=== PATIENT | male | born 1950 | race Caucasian/White ===

== ENCOUNTER 2022-03-24 09:48 | Outpatient (REF) | payer BC, SELFPAY ==
--- NOTE | ~2022-03-24 | US_ITS ---
EXAMINATION: US COMPLETE ABDOMEN WITH LIVER ELASTOGRAPHY CLINICAL INFORMATION: Fatty liver, elevated LFTs. COMPARISON: CT abdomen 06/16/2011. TECHNIQUE: Real-time imaging of the abdominal viscera. Noninvasive ultrasound liver fibrosis assessment is performed using Shad ElastPQ point quantification shear wave elastography (2D-SWE) with a C5-2 MHz transducer. Multiple elastography samples are obtained. FINDINGS: PANCREAS: Normal. The visualized pancreatic head and body are normal in appearance. The remainder of the pancreas is obscured from visualization by the overlying bowel gas. ABDOMINAL AORTA: The proximal, middle, and distal aortic segments are normal in caliber. INFERIOR VENA CAVA: Visualized portions are normal. LIVER: The liver demonstrates normal size, contour and diffuse increased echogenicity. There is a small anechoic cyst in left hepatic lobe measuring 1.4 x 0.9 x 1.1 cm. The right hepatic lobe measures 22.1 cm in length. The left lobe measures 12.9 cm in length. Portal flow is hepatopedal. Shear wave liver elastography median stiffness is 1.28 m/s (reference: normal median stiffness is 1.3 m/s or less). IQR/median stiffness to assess sampling precision is 0.11 (reference: good quality data set is IQR/median stiffness of 0.15 or less). GALLBLADDER: Normal. The gallbladder is physiologically distended without evidence of stones, sludge, polyps, wall thickening or pericholecystic fluid. COMMON BILE DUCT: Normal in caliber measuring 0.44 cm in diameter. RIGHT KIDNEY: There are 2 anechoic cysts. A midpole cyst measures 1.7 x 1.4 x 1.7 cm and a lower pole cyst measures 0.7 x 0.6 x 0.5 cm. No hydronephrosis. No renal calculi or focal parenchymal lesions. The kidney measures 12.9 cm in maximum dimension. LEFT KIDNEY: There are 2 anechoic cysts measuring 3.9 x 3.9 x 3.2 cm in upper pole and 3.0 x 2.0 x 1.1 cm in lower pole. No hydronephrosis. No renal calculi or focal parenchymal lesions. The kidney measures 12.0 cm in maximum dimension. SPLEEN: Normal. The spleen measures 9.9 cm in maximum dimension. FREE FLUID: None. US/US abdomen comp w elastography IMPRESSION: 1. Bilateral renal cysts. No echogenic calculi or hydronephrosis. Right hepatic cyst with hepatic steatosis. 2. Liver elastography: Median liver stiffness measures 1.28 m/s suggestive of high probability normal. REFERENCE: Society of Radiologists in Ultrasound Liver Stiffness Thresholds (2020): LIVER STIFFNESS THRESHOLDS: *Liver Stiffness equal or less than 1.3 m/s: High probability of being normal. *Liver Stiffness less than 1.7 m/s: In the absence of other known clinical signs, rules out compensated advanced chronic liver disease. *Liver Stiffness 1.7-2.1 m/s: Suggestive of compensated advanced chronic liver disease but need further test for confirmation. *Liver Stiffness over 2.1 m/s: Rules in compensated advanced chronic liver disease. *Liver Stiffness over 2.4 m/s: Suggestive of clinically significant portal hypertension. QUALITY OF DATA SET: *IQR/Median value equal or less than 0.15 implies a quality data set. *IQR/Median value over 0.15 implies a poor quality data set. SIGNIFICANT CHANGE FROM PRIOR EXAM: Significant change if liver stiffness measurement is 10% or greater from prior exam. OTHER CONSIDERATIONS: The stage of liver fibrosis may be overestimated in the setting of acute hepatitis, liver inflammation, elevated liver function tests, hepatic vascular congestion, obstructive cholestasis, non-fasting state, and infiltrative diseases such as amyloidosis and lymphoma. In some patients with NAFLD, the liver stiffness thresholds for compensated advanced chronic liver disease may be lower. In causes other than viral hepatitis and NAFLD, liver stiffness thresholds are not well established.
== END 2022-03-24 09:49 | disposition home or self-care (01) ==
LOC: HO.US 09:48
PROVIDERS: Visit Provider Internal Medicine
DX: K76.0 Fatty (change of) liver, not elsewhere classified (principal); R74.8 Abnormal levels of other serum enzymes
CPT/HCPCS: 76705; 76981

== ENCOUNTER 2022-03-27 07:57 | Day surgery (SDC) | payer BC, SELFPAY ==
[2022-03-20 11:21] VITALS: BMI 32.3
--- NOTE | 2022-03-26 08:45 | HO.ANESPROP2 ---
Documented by User: Mehreen Villasenor NP 03/26/22 08:46 HPI - Anesthesia Eval Consult details Narrative: 71yo M for Colonoscopy [facility] Past Medical History Medical History Diabetes Elevated cholesterol Fatty liver GERD (gastroesophageal reflux disease) HTN (hypertension) Sleep apnea with use of continuous positive airway pressure (CPAP) Small bowel obstruction Surgical History Surgical History H/O colonoscopy History of esophagogastroduodenoscopy (EGD) Hx of nasal septoplasty Hx of repair of right rotator cuff Hx of right inguinal hernia repair Hx of umbilical hernia repair Social History Social History Household Members: Spouse Patient Tobacco Use Status: Never used Tobacco Use of substances other than those prescribed or required for medical reasons: No Are you DNR?: No Advance Directives: No Advance Directives Information Provided: Yes Recently lost weight without trying: No Nutrition Risks: No Nutritional Risk Meds Allergies Allergy/AdvReac Type Severity Reaction Status Date / Time No Known Allergies Allergy Verified 03/27/22 08:11 Home Medications Medication Instructions Recorded Confirmed Last Taken Type atorvastatin 40 mg tablet 1 tab PO DAILY 03/20/22 03/20/22 Unknown History dapagliflozin 10 mg tablet 1 tab PO DAILY 03/20/22 03/20/22 Unknown History ([facility]) finasteride 5 mg tablet 1 tab PO DAILY 03/20/22 03/20/22 Unknown History metoprolol succinate 100 mg 1 tab PO DAILY 03/20/22 03/20/22 03/27/22 History tablet,extended release 24 hr tamsulosin 0.4 mg capsule 1 cap PO DAILY 03/20/22 03/20/22 Unknown History Exam Exam Date and Time: March 26, 2022 0845 Height,Weight and Vital Signs: Height 5 ft 10 in Weight 102.058 kg Assessment and Plan Assessment Anesthesia Assessment: Chart Reviewed Documented by User: Baylee Del Rio MD 03/27/22 09:24 [facility] Past Medical History Medical History Diabetes Elevated cholesterol Fatty liver GERD (gastroesophageal reflux disease) HTN (hypertension) Sleep apnea with use of continuous positive airway pressure (CPAP) Small bowel obstruction Family History Family history of problems with anesthesia: No Surgical History Surgical History H/O colonoscopy History of esophagogastroduodenoscopy (EGD) Hx of nasal septoplasty Hx of repair of right rotator cuff Hx of right inguinal hernia repair Hx of umbilical hernia repair History of Problems with Anesthesia: No Social History Social History Household Members: Spouse Patient Tobacco Use Status: Never used Tobacco Use of substances other than those prescribed or required for medical reasons: No Are you DNR?: No Advance Directives: No Advance Directives Information Provided: Yes Recently lost weight without trying: No Nutrition Risks: No Nutritional Risk Meds Allergies Allergy/AdvReac Type Severity Reaction Status Date / Time No Known Allergies Allergy Verified 03/27/22 08:11 Home Medications Medication Instructions Recorded Confirmed Last Taken Type atorvastatin 40 mg tablet 1 tab PO DAILY 03/20/22 03/20/22 Unknown History dapagliflozin 10 mg tablet 1 tab PO DAILY 03/20/22 03/20/22 Unknown History ([facility]) finasteride 5 mg tablet 1 tab PO DAILY 03/20/22 03/20/22 Unknown History metoprolol succinate 100 mg 1 tab PO DAILY 03/20/22 03/20/22 03/27/22 History tablet,extended release 24 hr tamsulosin 0.4 mg capsule 1 cap PO DAILY 03/20/22 03/20/22 Unknown History Exam Height,Weight and Vital Signs: Height 5 ft 10 in Weight 102.058 kg Vital Signs Temp Pulse Resp BP Pulse Ox 03/27/22 08:23 97.9 F 52 16 155/93 H 96 Pertinent Lab Results Pertinent Lab Results: Lab Results 03/27/22 Range/Units 08:32 POC Glucose 120 H (60-115) mg/dL Airway Mallampati Class: III (Small mouth opening) TM Dist: >3cm Neck ROM: Full Loose/Missing/Broken Teeth: No Heart: RRR Lungs: CTAB Assessment and Plan Assessment Anesthesia Assessment: Anesthesia Plan Discussed Final Anesthetic Review Family History of Problems with Anesthesia: No History of Problems with Anesthesia: No NPO: Yes ASA Class: III Final Preanesthetic Review: No Changes in Pt Med Stat, Meds/Allgs Chart Reviewed, Consent Obtained/Reviewed and Anes Risks/Benef Reviewed Patient Risk: Intermediate Procedure Risk: Low Assessment/Block/Sedation in SS: Assess/Block/Sedation-SS Anesthetic Plan Anesthetic Plan: MAC: Disposition: Standard PACU
[2022-03-27 08:07] VITALS: BMI 32.3
[2022-03-27 08:23] VITALS: BP 155/93; PULSE 52; RESP 16; TEMP 36.6; O2SAT 96
[2022-03-27] MEDS: Lactated Ringers 1,000 ML 100 ML IVCONT (08:36)
[2022-03-27 08:41] LABS: Glucose, Whole Blood 120 mg/dL (60-115)
[2022-03-27 10:12] VITALS: BP 108/59; PULSE 53; RESP 16; TEMP 36.7; O2SAT 95
--- NOTE | 2022-03-27 10:13 | PM.OP ---
Brief Operative Note Date of Service: 03/27/22 Pre-op diagnosis: Screening Post-op diagnosis: other (Polyps) Procedure: Colonoscopy to the cecum and TI with bx/removal of polyps Surgeon: Ghassan Navarro Anesthesia: MAC Was an Correctional Counselor used for this Procedure?: No Estimated blood loss (mL): 2.0 Pathology: other (A. Transverse colon polyps) Condition: stable Disposition: PACU
[2022-03-27 10:27] VITALS: BP 135/78; PULSE 58; RESP 16; O2SAT 98
[2022-03-27 10:42] VITALS: BP 144/81; PULSE 53; RESP 16; O2SAT 98
--- NOTE | 2022-03-27 16:42 | OP_ITS ---
SURGEON: Ghassan Navarro MD INDICATIONS: The patient presents for evaluation of colorectal cancer screening. Full consent was obtained from him for this, including risks of bleeding and perforation. PREOPERATIVE DIAGNOSIS: Colorectal cancer screening. POSTOPERATIVE DIAGNOSIS: PROCEDURE PERFORMED: Colonoscopy to the cecum and terminal ileum with biopsy and removal of polyps. ESTIMATED BLOOD LOSS: COMPLICATIONS: ANESTHESIA: Monitored anesthesia care. ASSISTANTS: SPECIMENS: POSTOPERATIVE DIAGNOSES: Colorectal cancer screening, small colon polyps, diverticulosis and internal hemorrhoids. DESCRIPTION OF PROCEDURE: The patient was placed in the left lateral decubitus position. The digital rectal exam revealed no abnormalities. The Olympus video pediatric colonoscope was entered into the rectum and advanced easily to the cecum. Once in the cecum, I did identify normal-appearing cecal pouch with appendiceal orifice and a normal-appearing ileocecal valve. The terminal ileum was cannulated and appeared normal. The scope was withdrawn back into the colon. The entire cecum and ileocecal valve appeared normal. The scope was slowly withdrawn assessing all mucosal surfaces carefully. Preparation was excellent. In the transverse colon were 3 flat less than 5 mm polyps, which were all biopsied and completely removed with cold biopsy forceps. I did not visualize any other polyps, colitis, or angiodysplasia. There was a mild amount of sigmoid diverticulosis. In the rectum, scope was retroflexed visualizing internal hemorrhoids, but no other pathology. The rectal mucosa appeared normal. The scope was straightened and withdrawn from the patient. He tolerated the procedure well and was returned to the recovery area in stable condition. IMPRESSION: 1. Small colon polyps, status post biopsy removal. 2. Diverticulosis. 3. Internal hemorrhoids. PLAN: The results of the pathology will be checked. If these are tubular adenoma, I would recommend a followup colonoscopy in 5 years. If they are only hyperplastic, I would recommend a repeat colonoscopy in 10 years, although that point it would be just about 80 years old and we would need to take his clinical condition into account. He has been advised to see me again in several months for a followup visit in regard to the underlying history of fatty liver. He did have some recent laboratories and ultrasound, but presently is not on any specific treatment for that. MD PEARL Marie/JOE / [id number] [facility] HOSPITALPoornima
== END 2022-03-27 11:00 | disposition home or self-care (01) ==
PROVIDERS: Visit Provider Internal Medicine
PROC: 0DJD8ZZ Inspection of Lower Intestinal Tract, Via Natural or Artificial Opening Endoscopic (ICD-10-PCS; CPT 45378; principal; 2022-03-27 09:10)
DX: Z12.11 Encounter for screening for malignant neoplasm of colon (principal); Z83.71 Family history of colonic polyps; D12.3 Benign neoplasm of transverse colon; K57.30 Diverticulosis of large intestine without perforation or abscess without bleeding; K64.8 Other hemorrhoids; K76.0 Fatty (change of) liver, not elsewhere classified; R74.8 Abnormal levels of other serum enzymes; K21.9 Gastro-esophageal reflux disease without esophagitis; I10 Essential (primary) hypertension; E78.5 Hyperlipidemia, unspecified; E11.9 Type 2 diabetes mellitus without complications; Z79.84 Long term (current) use of oral hypoglycemic drugs; Z79.82 Long term (current) use of aspirin; Z79.899 Other long term (current) drug therapy
CPT/HCPCS: 45380; 82947; 88305

== ENCOUNTER 2023-04-15 13:27 | Outpatient (REF) | payer BC, SELFPAY ==
[2023-04-15 13:53] LABS: MANUAL DIFF FLAG NO
[2023-04-15 14:52] LABS: Basophils Percent Auto 0.5 % (0-2); Eosinophils Absolute Auto 0.1 X10*3/uL (0.0-0.4); Eosinophils Percent Auto 2.1 % (0-4); Hemoglobin 14.8 g/dl (14.0-18.0); Imm Gran Abs Auto 0.01 X10*3/uL (0.00-0.03); Imm Gran Pct Auto 0.2 % (0.0-0.4); Lymphocytes Absolute Auto 1.5 X10*3/uL (1.2-4.9); Lymphocytes Percent Auto 26.6 % (20-40); Mean Corpuscular HGB Conc 33.6 g/dl (31.0-36.0); Mean Corpuscular Hemoglobin 32.4 pg (27.0-33.0); Mean Corpuscular Volume 96.3 fL (80.0-98.0); Mean Platelet Volume 10.8 fL (9.4-12.4); Monocytes Absolute Auto 0.5 X10*3/uL (0.1-1.2); Monocytes Percent Auto 9.2 % (2-11); Neutrophils Absolute Auto 3.6 x10*3/uL (2.0-8.3); Neutrophils Percent Auto 61.4 % (45-73); Platelet Count 197 X10*3/uL (160-400); Red Blood Count 4.57 X10*6/uL (4.60-5.80); Red Cell Distribution Width 12.6 % (11.0-16.0); White Blood Count 5.8 X10*3/uL (4.8-10.8)
[2023-04-15 14:55] LABS: Prothrombin Time 10.9 SEC (10.0-13.1)
[2023-04-15 16:27] LABS: Alanine Aminotransferase 51 U/L (0-40); Albumin Level 4.2 g/dL (3.5-5.0); Alkaline Phosphatase 44 U/L (39-117); Aspartate Amino Transferase 32 U/L (5-37); Bilirubin Direct 0.4 mg/dL (0.0-0.5); Bilirubin Total 1.4 mg/dL (0.0-1.0); Total Protein 7.1 g/dL (6.5-8.0)
[2023-04-22 14:38] LABS: FIB-ALT 46 U/L (9-46); FIB-Alpha-2-Macroglobulin 283 mg/dL (106-279); FIB-Apolipoprotein A1 184 mg/dL (94-176); FIB-GGT 39 U/L (3-70); FIB-Haptoglobin 81 mg/dL (43-212); Liver Fibrosis Score 0.61; Liver Fibrosis Stage F3; Nec Inflam Act Grade A1-A2; Nec Inflam Act Score 0.36
== END 2023-04-15 13:28 | disposition home or self-care (01) ==
LOC: HO.LAB 13:27
PROVIDERS: PCP Internal Medicine; Visit Provider Internal Medicine
DX: K76.0 Fatty (change of) liver, not elsewhere classified (principal); K74.00 Hepatic fibrosis, unspecified
CPT/HCPCS: 36415; 80076; 81596; 85025; 85610

== ENCOUNTER 2023-04-19 12:52 | Day surgery (SDC) | payer BC, SELFPAY ==
--- NOTE | 2023-04-16 12:43 | HO.ANESPROP2 ---
Documented by User: Mehreen Villasenor NP 04/16/23 12:44 HPI - Anesthesia Eval Consult details Narrative: 72yo M for Upper Endoscopy with Balloon Dilitation [facility] Past Medical History Medical History Diabetes Elevated cholesterol Fatty liver GERD (gastroesophageal reflux disease) HTN (hypertension) Sleep apnea with use of continuous positive airway pressure (CPAP) Small bowel obstruction Family History Family history of problems with anesthesia: No Surgical History Surgical History H/O colonoscopy History of esophagogastroduodenoscopy (EGD) Hx of nasal septoplasty Hx of repair of right rotator cuff Hx of right inguinal hernia repair Hx of umbilical hernia repair History of Problems with Anesthesia: No Social History Social History Household Members: Spouse Patient Tobacco Use Status: Never used Tobacco Use of substances other than those prescribed or required for medical reasons: No Are you DNR?: No Advance Directives: No Advance Directives Information Provided: Yes Meds Allergies Allergy/AdvReac Type Severity Reaction Status Date / Time No Known Allergies Allergy Verified 04/19/23 13:07 Home Medications Medication Instructions Recorded Confirmed Last Taken Type atorvastatin 40 mg tablet (Lipitor) 1 tab PO DAILY 03/20/22 04/19/23 Unknown History dapagliflozin propanediol 10 mg 1 tab PO DAILY 03/20/22 04/19/23 Unknown History tablet (Farxiga) finasteride 5 mg tablet (Proscar) 1 tab PO DAILY 03/20/22 04/19/23 Unknown History tamsulosin 0.4 mg capsule (Flomax) 1 cap PO DAILY 03/20/22 04/19/23 Unknown History irbesartan 150 mg tablet (Avapro) 150 mg PO DAILY 04/19/23 04/19/23 04/19/23 07:00 History omeprazole 20 mg capsule,delayed 20 mg PO DAILY 04/19/23 04/19/23 Unknown History release ursodiol 500 mg tablet 1,000 mg PO BID 04/19/23 04/19/23 Unknown History Exam Exam Date and Time: April 16, 2023 1243 Pertinent Lab Results Pertinent Lab Results: Laboratory Tests 04/15/23 13:49 WBC 5.8 Hgb 14.8 Hct 44.0 Plt Count 197 Assessment and Plan Assessment Anesthesia Assessment: Chart Reviewed Final Anesthetic Review Family History of Problems with Anesthesia: No History of Problems with Anesthesia: No Documented by User: Isai Sampson MD 04/19/23 14:32 [facility] Past Medical History Medical History Diabetes Elevated cholesterol Fatty liver GERD (gastroesophageal reflux disease) HTN (hypertension) Sleep apnea with use of continuous positive airway pressure (CPAP) Small bowel obstruction Surgical History Surgical History H/O colonoscopy History of esophagogastroduodenoscopy (EGD) Hx of nasal septoplasty Hx of repair of right rotator cuff Hx of right inguinal hernia repair Hx of umbilical hernia repair Social History Social History Household Members: Spouse Patient Tobacco Use Status: Never used Tobacco Use of substances other than those prescribed or required for medical reasons: No Are you DNR?: No Advance Directives: No Advance Directives Information Provided: Yes Meds Allergies Allergy/AdvReac Type Severity Reaction Status Date / Time No Known Allergies Allergy Verified 04/19/23 13:07 Home Medications Medication Instructions Recorded Confirmed Last Taken Type atorvastatin 40 mg tablet (Lipitor) 1 tab PO DAILY 03/20/22 04/19/23 Unknown History dapagliflozin propanediol 10 mg 1 tab PO DAILY 03/20/22 04/19/23 Unknown History tablet (Farxiga) finasteride 5 mg tablet (Proscar) 1 tab PO DAILY 03/20/22 04/19/23 Unknown History tamsulosin 0.4 mg capsule (Flomax) 1 cap PO DAILY 03/20/22 04/19/23 Unknown History irbesartan 150 mg tablet (Avapro) 150 mg PO DAILY 04/19/23 04/19/23 04/19/23 07:00 History omeprazole 20 mg capsule,delayed 20 mg PO DAILY 04/19/23 04/19/23 Unknown History release ursodiol 500 mg tablet 1,000 mg PO BID 04/19/23 04/19/23 Unknown History Exam Airway Mallampati Class: II TM Dist: >3cm Neck ROM: Full Heart: rrr Lungs: cta Assessment and Plan Assessment Anesthesia Assessment: Anesthesia Plan Discussed Final Anesthetic Review ASA Class: III Final Preanesthetic Review: No Changes in Pt Med Stat, Meds/Allgs Chart Reviewed, Anes Risks/Benef Reviewed and DNR Form (If Appl.) Patient Risk: Intermediate Procedure Risk: Intermediate Anesthetic Plan Anesthetic Plan: MAC: and Agree w/ Assess. and Plan Disposition: Standard PACU
[2023-04-19 13:07] VITALS: BMI 31.1
[2023-04-19 13:13] VITALS: BP 109/71; PULSE 64; RESP 16; TEMP 36.8; O2SAT 93
[2023-04-19] MEDS: Lactated Ringers 1,000 ML 100 ML IVCONT (13:34)
[2023-04-19 13:38] LABS: Glucose, Whole Blood 133 mg/dL (60-115)
[2023-04-19 15:32] VITALS: BP 149/83; PULSE 62; RESP 16; TEMP 36.8; O2SAT 97
--- NOTE | 2023-04-19 15:44 | P.BOP_ITS ---
Brief Operative Note Date of Service: 04/19/23 Pre-op diagnosis: GERD, Dysphagia Post-op diagnosis: other (Erosive esophagitis, Hiatal hernia, Gastritis) Procedure: EGD with biopsies Surgeon: Ghassan Navarro Anesthesia: MAC Was an Automotive Leasing Sales Representative used for this Procedure?: No Estimated blood loss (mL): 2.0 Pathology: other (A. EG Junction at 35cm B. Gastric antrum) Condition: stable Disposition: PACU
[2023-04-19 15:47] VITALS: BP 155/93; PULSE 61; RESP 16; O2SAT 97
[2023-04-19 16:02] VITALS: BP 153/89; PULSE 56; RESP 16; TEMP 36.8; O2SAT 97
--- NOTE | 2023-04-19 23:30 | OP_ITS ---
DATE OF SERVICE: 04/19/2023 SURGEON: Ghassan Navarro MD INDICATIONS: The patient presents for evaluation of dysphagia and reflux. Full consent has been obtained from him for this, including risks of bleeding and perforation. PREOPERATIVE DIAGNOSIS: POSTOPERATIVE DIAGNOSIS: PROCEDURE PERFORMED: Esophagogastroduodenoscopy with biopsies. ESTIMATED BLOOD LOSS: COMPLICATIONS: ANESTHESIA: Monitored anesthesia care. ASSISTANTS: SPECIMENS: PREOPERATIVE DIAGNOSES: Dysphagia and reflux. POSTOPERATIVE DIAGNOSES: Dysphagia and reflux, erosive esophagitis, hiatal hernia, gastritis. DESCRIPTION OF PROCEDURE: The patient was placed in the left lateral decubitus position. The Olympus video gastroscope was passed in the posterior oropharynx and upper esophagus under direct vision. The scope was passed slowly to the distal esophagus. The gastroesophageal junction appeared at 35 cm. This area was notable for ulceration with overlying exudate, friability, and some edema. With insufflation of air, there did not appear to be any significant stricture, although there may very well been a mild stricture. However the scope easily entered the hiatal hernia and was advanced to the pylorus. The duodenum including the bulb appeared normal without mass or ulceration. The scope was withdrawn back to the stomach. The gastric antrum had some mild areas of erythema and edema consistent with some mild gastritis, but no erosions nor ulcerations. There was good peristalsis. Biopsies were obtained from the antrum. The scope was retroflexed visualizing the proximal stomach carefully which appeared normal, without any sign of mass or ulceration. The scope was straightened and withdrawn back to the esophagus. Again, there did not appear to be any significant stricture nor obstruction and therefore, given the associated significant ulceration, I opted not to perform any balloon dilation. I did obtain biopsies at 35 cm. There was no definitive Tanner's esophagus, but this was difficult to assess completely because of all the overlying exudate from the esophagitis. Proximal to this area, the esophageal mucosa appeared normal. There was no evidence of any proximal esophageal rings. The scope was withdrawn from the patient. He tolerated the procedure well and was returned to the recovery area in stable condition. IMPRESSION: 1. Erosive esophagitis. 2. Question of mild distal esophageal stricture in the area of esophagitis. 3. Hiatal hernia. 4. Gastritis. PLAN: The results of the biopsies will be checked. He just recently started using omeprazole 20 mg daily. I am going to send him home with a prescription for omeprazole 40 mg twice a day to hopefully achieve healing relatively rapidly. I will plan to have him undergo repeat endoscopy within 1 month to reassess this and make sure no further biopsies are needed. If things are improved, we could perform any needed balloon dilation at that time. He has been instructed to eat very carefully in the meantime, and avoid any specific food such as meats and breads that might cause obstruction. This has been discussed with his . He was advised to stay off all aspirin and NSAIDs. MD PEARL Marie/JOE / [id number] [facility]
== END 2023-04-19 16:25 | disposition home or self-care (01) ==
PROVIDERS: PCP Internal Medicine; Visit Provider Internal Medicine
PROC: (CPT 43239; principal; 2023-04-19 14:00)
DX: R13.19 Other dysphagia (principal); K20.80 Other esophagitis without bleeding; K44.9 Diaphragmatic hernia without obstruction or gangrene; K29.70 Gastritis, unspecified, without bleeding; K21.9 Gastro-esophageal reflux disease without esophagitis; E11.9 Type 2 diabetes mellitus without complications; I10 Essential (primary) hypertension; E78.00 Pure hypercholesterolemia, unspecified; K76.0 Fatty (change of) liver, not elsewhere classified; K74.00 Hepatic fibrosis, unspecified; G47.33 Obstructive sleep apnea (adult) (pediatric); Z99.89 Dependence on other enabling machines and devices; Z79.899 Other long term (current) drug therapy; Z79.82 Long term (current) use of aspirin; Z79.02 Long term (current) use of antithrombotics/antiplatelets
CPT/HCPCS: 43239; 82947; 88305; 88312; 88342

== ENCOUNTER 2023-05-25 06:22 | Day surgery (SDC) | payer BC, SELFPAY ==
[2023-05-25 06:41] VITALS: BP 94/56; PULSE 57; RESP 18; TEMP 36.4; O2SAT 98; BMI 30.4
[2023-05-25 06:44] LABS: Glucose, Whole Blood 120 mg/dL (60-115)
[2023-05-25] MEDS: Lactated Ringers 1,000 ML 100 ML IVCONT (07:08)
--- NOTE | 2023-05-25 07:26 | HO.ANESPROP2 ---
[facility] Past Medical History Medical History Diabetes Elevated cholesterol Fatty liver GERD (gastroesophageal reflux disease) HTN (hypertension) Sleep apnea with use of continuous positive airway pressure (CPAP) Small bowel obstruction Family History Family history of problems with anesthesia: No Surgical History Surgical History H/O colonoscopy History of esophagogastroduodenoscopy (EGD) Hx of nasal septoplasty Hx of repair of right rotator cuff Hx of right inguinal hernia repair Hx of umbilical hernia repair History of Problems with Anesthesia: No Social History Social History Household Members: Spouse Patient Tobacco Use Status: Never used Tobacco Use of substances other than those prescribed or required for medical reasons: No Are you DNR?: No Advance Directives: No Advance Directives Information Provided: Yes Meds Allergies Allergy/AdvReac Type Severity Reaction Status Date / Time No Known Allergies Allergy Verified 04/19/23 13:07 Active Medications: Current Medications Lactated Ringer's (Lr) 1,000 mls @ 100 mls/hr IVCONT .Q10H ROBER Last Admin: 05/25/23 07:08 Dose: 100 mls/hr Home Medications Medication Instructions Recorded Confirmed Last Taken Type atorvastatin 40 mg tablet (Lipitor) 1 tab PO DAILY 03/20/22 05/25/23 Unknown History dapagliflozin propanediol 10 mg 1 tab PO DAILY 03/20/22 05/25/23 Unknown History tablet (Farxiga) finasteride 5 mg tablet (Proscar) 1 tab PO DAILY 03/20/22 05/25/23 Unknown History tamsulosin 0.4 mg capsule (Flomax) 1 cap PO DAILY 03/20/22 05/25/23 Unknown History irbesartan 150 mg tablet (Avapro) 150 mg PO DAILY 04/19/23 05/25/23 05/25/23 History 150 mg omeprazole 20 mg capsule,delayed 20 mg PO DAILY 04/19/23 05/25/23 Unknown History release ursodiol 500 mg tablet 1,000 mg PO BID 04/19/23 05/25/23 Unknown History Exam Exam Date and Time: May 25, 2023725 Height,Weight and Vital Signs: Height 5 ft 10 in Weight 96.162 kg Last Vital Signs Temp 97.5 F 05/25/23 06:41 Pulse 57 05/25/23 06:41 Resp 18 05/25/23 06:41 BP 94/56 L 05/25/23 06:41 Pulse Ox 98 05/25/23 06:41 O2 Del Method Room Air 05/25/23 06:41 Pertinent Lab Results Pertinent Lab Results: Laboratory Tests 05/25/23 06:39 POC Glucose 120 H Airway Mallampati Class: IV TM Dist: >3cm Neck ROM: Full Loose/Missing/Broken Teeth: No Heart: rrr Lungs: clear Assessment and Plan Final Anesthetic Review Family History of Problems with Anesthesia: No History of Problems with Anesthesia: No ASA Class: III Final Preanesthetic Review: No Changes in Pt Med Stat, Meds/Allgs Chart Reviewed, Consent Obtained/Reviewed and Anes Risks/Benef Reviewed Patient Risk: Intermediate Procedure Risk: Low Anesthetic Plan Anesthetic Plan: MAC:
[2023-05-25 08:05] VITALS: BP 135/70; PULSE 60; RESP 20; TEMP 36.5; O2SAT 97
--- NOTE | 2023-05-25 08:16 | P.BOP_ITS ---
Brief Operative Note Date of Service: 05/25/23 Pre-op diagnosis: Esophagitis Post-op diagnosis: other (Ulcer at EG Junction, Hiatal hernia) Procedure: EGD with biopsies Surgeon: Ghassan Navaror Anesthesia: MAC Was an Pharmaceutical Sales Specialist used for this Procedure?: No Estimated blood loss (mL): 2.0 Pathology: other (A. EG Junction at 34cm) Condition: stable Disposition: PACU
[2023-05-25 08:20] VITALS: BP 156/66; PULSE 56; RESP 18; TEMP 36.1; O2SAT 96
--- NOTE | 2023-05-25 08:40 | OP_ITS ---
DATE OF SERVICE: 05/25/2023 SURGEON: Ghassan Navarro MD INDICATIONS: The patient presents for evaluation of erosive esophagitis with associated esophageal ulcer, and previous dysphagia. Full consent has been obtained from him for this, including risks of bleeding and perforation. PREOPERATIVE DIAGNOSIS: History of esophageal ulcer and esophagitis, dysphagia. POSTOPERATIVE DIAGNOSIS: History of esophageal ulcer and esophagitis, dysphagia, persistent ulcer at gastroesophageal junction, hiatal hernia. PROCEDURE PERFORMED: Esophagogastroduodenoscopy with biopsies. ESTIMATED BLOOD LOSS: COMPLICATIONS: ANESTHESIA: Monitored anesthesia care. ASSISTANTS: SPECIMENS: DESCRIPTION OF PROCEDURE: The patient was placed in the left lateral decubitus position. The Olympus video gastroscope was passed into the posterior oropharynx and upper esophagus under direct vision. The scope was passed slowly to the distal esophagus. The gastroesophageal junction appeared at 34 cm. This area was slightly irregular consistent with reflux and possible small areas of Tanner's mucosa. However, there was also a persistent ulcer with overlying exudate at the EG junction at 34 cm. It appeared to be grossly benign, but somewhat irregular in shape. It was at the 7 o'clock position. There was no associated mass. The scope easily passed the EG junction into the stomach. There was a small to moderate-sized hiatal hernia. The scope was advanced to the pylorus and the duodenum was cannulated to the descending portion. The duodenum including the bulb appeared normal without mass or ulceration. The scope was withdrawn back to the stomach. The gastric antrum had some areas of erythema, but no erosions or ulceration. There was good peristalsis. Biopsies from last endoscopy were negative for H pylori and therefore further biopsies were not obtained. The scope was retroflexed visualizing the proximal stomach carefully, which appeared normal, without any sign of mass or ulceration. The scope was straightened and withdrawn back to the esophagus. With insufflation of air, there did not appear to be any sign of a stricture. Therefore, given that and the fact that there was still ulceration at the EG junction, dilation was not performed. I did obtain multiple biopsies at the EG junction, both from the margin of the ulcer and from the area of possible Tanner's mucosa. Proximal to this, the esophageal mucosa appeared normal. The scope was withdrawn from the patient. He tolerated the procedure well and was returned to the recovery area in stable condition. IMPRESSION: Erosive esophagitis with persistent ulcer at the esophagogastric junction. Rule out Tanner's esophagus. Hiatal hernia. PLAN: The results of the biopsies will be checked. At this point, he has been using [id number] omeprazole 20 mg with 2 each morning and 2 each evening. We shall check with his insurance to see if we can switch him to a different prescription strength PPI twice a day to see if we might have better results with healing the ulcer and then plan for repeat upper endoscopy in the next 2 to 3 months. At this point, he reports that his swallowing has basically been normal and I do not think he needs dilation at this time. We will also check a gastrin level at some point. He was advised to avoid all aspirin and NSAIDs long-term. This has been discussed with his . MD PEARL Marie/JOE / [id number] MTDD
== END 2023-05-25 08:45 | disposition home or self-care (01) ==
PROVIDERS: PCP Internal Medicine; Visit Provider Internal Medicine
PROC: (CPT 43239; principal; 2023-05-25 07:30)
DX: K22.10 Ulcer of esophagus without bleeding (principal); K21.9 Gastro-esophageal reflux disease without esophagitis; K44.9 Diaphragmatic hernia without obstruction or gangrene; K29.70 Gastritis, unspecified, without bleeding; E11.9 Type 2 diabetes mellitus without complications; K76.0 Fatty (change of) liver, not elsewhere classified; G47.33 Obstructive sleep apnea (adult) (pediatric); Z99.89 Dependence on other enabling machines and devices; Z79.899 Other long term (current) drug therapy
CPT/HCPCS: 43239; 82947; 88305

== ENCOUNTER 2023-10-05 09:37 | Outpatient (REF) | payer BC, SELFPAY ==
[2023-10-05 09:51] LABS: MANUAL DIFF FLAG NO
[2023-10-05 10:02] LABS: Basophils Percent Auto 0.7 % (0-2); Eosinophils Absolute Auto 0.2 X10*3/uL (0.0-0.4); Hemoglobin 15.9 g/dl (14.0-18.0); Imm Gran Abs Auto 0.01 X10*3/uL (0.00-0.03); Imm Gran Pct Auto 0.2 % (0.0-0.4); Lymphocytes Absolute Auto 1.4 X10*3/uL (1.2-4.9); Lymphocytes Percent Auto 30.4 % (20-40); Mean Corpuscular HGB Conc 33.8 g/dl (31.0-36.0); Mean Corpuscular Hemoglobin 32.5 pg (27.0-33.0); Mean Corpuscular Volume 96.1 fL (80.0-98.0); Mean Platelet Volume 10.3 fL (9.4-12.4); Monocytes Absolute Auto 0.4 X10*3/uL (0.1-1.2); Monocytes Percent Auto 8.7 % (2-11); Neutrophils Absolute Auto 2.5 x10*3/uL (2.0-8.3); Platelet Count 181 X10*3/uL (160-400); Red Blood Count 4.89 X10*6/uL (4.60-5.80); Red Cell Distribution Width 12.2 % (11.0-16.0); White Blood Count 4.6 X10*3/uL (4.8-10.8)
[2023-10-05 10:16] LABS: INTERNATIONAL NORM RATIO 0.9 (0.9-1.1); Prothrombin Time 10.7 SEC (11.1-13.3)
[2023-10-05 10:35] LABS: Alanine Aminotransferase 29 U/L (0-40); Albumin Level 4.4 g/dL (3.5-5.0); Alkaline Phosphatase 50 U/L (39-117); Aspartate Amino Transferase 20 U/L (5-37); Bilirubin Direct 0.3 mg/dL (0.0-0.5); Bilirubin Total 0.9 mg/dL (0.0-1.0); Total Protein 7.3 g/dL (6.5-8.0)
[2023-10-06 11:29] LABS: Alpha Fetoprotein 3.4 ng/mL (<6.1)
[2023-10-15 17:34] LABS: FIB-ALT 25 U/L (9-46); FIB-Alpha-2-Macroglobulin 277 mg/dL (106-279); FIB-Apolipoprotein A1 173 mg/dL (94-176); FIB-GGT 30 U/L (3-70); FIB-Haptoglobin 76 mg/dL (43-212); FIB-Total Bilirubin 0.7 mg/dL (0.2-1.2); Liver Fibrosis Score 0.55; Liver Fibrosis Stage F2; Nec Inflam Act Grade A0; Nec Inflam Act Score 0.16
== END 2023-10-05 09:38 | disposition home or self-care (01) ==
LOC: HO.LAB 09:37
PROVIDERS: PCP Internal Medicine; Visit Provider Internal Medicine
DX: K76.0 Fatty (change of) liver, not elsewhere classified (principal); K74.00 Hepatic fibrosis, unspecified; R74.8 Abnormal levels of other serum enzymes
CPT/HCPCS: 36415; 80076; 81596; 82105; 85025; 85610

== ENCOUNTER 2023-10-20 09:21 | Day surgery (SDC) | payer BC, SELFPAY ==
[2023-10-15 11:06] VITALS: BMI 30.6
[2023-10-20 09:32] VITALS: BMI 31.3
[2023-10-20 09:35] VITALS: BP 169/101; PULSE 74; RESP 20; TEMP 36.1; O2SAT 96
[2023-10-20 09:45] LABS: Glucose, Whole Blood 156 mg/dL (60-115)
[2023-10-20 09:47] VITALS: BP 154/74
[2023-10-20] MEDS: Lactated Ringers 1,000 ML 50 ML IVCONT (09:54)
--- NOTE | 2023-10-20 10:48 | P.CONAN_ITS ---
HPI - Anesthesia Eval Consult details Narrative: for EGD [facility] Past Medical History Medical History Sleep apnea with use of continuous positive airway pressure (CPAP) Diabetes Elevated cholesterol Fatty liver Small bowel obstruction GERD (gastroesophageal reflux disease) HTN (hypertension) Family History Family history of problems with anesthesia: No Surgical History Surgical History (Updated 10/15/23 @ 11:07 by Anabel Mcrae RN) Hx of right inguinal hernia repair Hx of umbilical hernia repair Hx of nasal septoplasty Hx of repair of right rotator cuff History of esophagogastroduodenoscopy (EGD) H/O colonoscopy History of Problems with Anesthesia: No Social History Social History Household Members: Spouse Patient Tobacco Use Status: Never used Tobacco Are you DNR?: No Advance Directives: No Advance Directives Information Provided: Yes Nutrition Risks: No Nutritional Risk Meds Allergies Allergy/AdvReac Type Severity Reaction Status Date / Time No Known Allergies Allergy Verified 04/19/23 13:07 Active Medications: Current Medications Lactated Ringer's (Lr) 1,000 mls @ 50 mls/hr IVCONT .Q20H ROBER Last Admin: 10/20/23 09:54 Dose: 50 mls/hr Home Medications Medication Instructions Recorded Confirmed Last Taken Type atorvastatin 40 mg tablet (Lipitor) 1 tab PO DAILY 03/20/22 10/15/23 10/19/23 History dapagliflozin propanediol 10 mg 1 tab PO DAILY 03/20/22 10/15/23 10/19/23 History tablet (Farxiga) finasteride 5 mg tablet (Proscar) 1 tab PO DAILY 03/20/22 10/15/23 10/19/23 Hist ory tamsulosin 0.4 mg capsule (Flomax) 1 cap PO DAILY 03/20/22 10/15/23 10/19/23 History irbesartan 150 mg tablet (Avapro) 150 mg PO DAILY 04/19/23 10/15/23 10/19/23 History omeprazole 20 mg capsule,delayed 20 mg PO DAILY 04/19/23 10/15/23 10/19/23 History release ursodiol 500 mg tablet 1,000 mg PO BID 04/19/23 10/15/23 10/19/23 History Exam Height,Weight and Vital Signs: Height 5 ft 10 in Weight 98.974 kg Last Vital Signs Temp 96.9 F 10/20/23 09:35 Pulse 74 10/20/23 09:35 Resp 20 10/20/23 09:35 BP 154/74 H 10/20/23 09:47 Pulse Ox 96 10/20/23 09:35 O2 Del Method Room Air 10/20/23 09:35 Pertinent Lab Results Pertinent Lab Results: Laboratory Tests 10/20/23 09:40 POC Glucose 156 H Airway Mallampati Class: II TM Dist: >3cm Neck ROM: Full Loose/Missing/Broken Teeth: No Heart: ok Lungs: ok Assessment and Plan Assessment Anesthesia Assessment: Anesthesia Plan Discussed and Chart Reviewed Final Anesthetic Review Family History of Problems with Anesthesia: No History of Problems with Anesthesia: No NPO: Yes ASA Class: II and III Final Preanesthetic Review: No Changes in Pt Med Stat, Meds/Allgs Chart Reviewed, Consent Obtained/Reviewed and Anes Risks/Benef Reviewed Patient Risk: Intermediate Procedure Risk: Intermediate Anesthetic Plan Anesthetic Plan: MAC: and Agree w/ Assess. and Plan Disposition: Standard PACU
[2023-10-20 11:36] VITALS: BP 142/76; PULSE 74; RESP 18; TEMP 37.1; O2SAT 95
--- NOTE | 2023-10-20 11:46 | P.BOP_ITS ---
Brief Operative Note Date of Service: 10/20/23 Pre-op diagnosis: GERD, Hx of esophageal ulcer Post-op diagnosis: other (Hiatal hernia, healed ulcer, R/O Tanner's) Procedure: EGD with biopsies Surgeon: Ghassan Navarro MD Anesthesia: MAC Was an Circular Tank Cooper used for this Procedure?: No Estimated blood loss (mL): 2.0 Pathology: other (A. Esophagus 34-35cm) Condition: stable Disposition: PACU
[2023-10-20 11:57] VITALS: BP 147/69; PULSE 67; RESP 18; TEMP 36.7; O2SAT 97
--- NOTE | 2023-10-20 12:38 | OP_ITS ---
DATE OF SERVICE: 10/20/2023 SURGEON: Ghassan Navarro MD INDICATIONS: The patient presents for evaluation of chronic gastroesophageal reflux, history of esophageal ulcer, and previous history of Tanner's esophagus. Full consent has been obtained from him for this, including risks of bleeding and perforation. PREOPERATIVE DIAGNOSIS: POSTOPERATIVE DIAGNOSIS: PROCEDURE PERFORMED: Esophagogastroduodenoscopy with biopsies. ESTIMATED BLOOD LOSS: COMPLICATIONS: ANESTHESIA: Monitored anesthesia care. ASSISTANTS: SPECIMENS: PREOPERATIVE DIAGNOSES: 1. Gastroesophageal reflux. 2. History of esophageal ulcer. 3. History of Tanner's esophagus. 4. Hiatal hernia. 5. Healed ulcer. 6. Rule out Tanner's esophagus. DESCRIPTION OF PROCEDURE: The patient was placed in the left lateral decubitus position. The Olympus video gastroscope was passed in the posterior oropharynx and upper esophagus under direct vision. The scope was passed slowly to the distal esophagus. The gastroesophageal junction appeared at 35 cm. Extending from this to 34 cm, was a circumferential segment of probable Tanner's mucosa. There was no evidence of any esophagitis, esophageal ulceration, nor any lesions. The scope entered the stomach. There was a small hiatal hernia. The scope was advanced to the pylorus and the duodenum was cannulated to the descending portion. The duodenum including the bulb appeared normal without mass or ulceration. The scope was withdrawn back in the stomach. The gastric antrum and body appeared normal with good peristalsis. The scope was retroflexed visualizing the proximal stomach carefully which appeared normal, without any sign of mass or ulceration. The scope was straightened and withdrawn back to the esophagus. Multiple biopsies were obtained between 34 and 35 cm. Proximal to 34 cm, the esophageal mucosa appeared normal. The scope was withdrawn from the patient. He tolerated the procedure well and was returned to the recovery area in stable condition. IMPRESSION: 1. Gastroesophageal reflux, healed esophageal ulcer, rule out Tanner's esophagus. 2. Hiatal hernia. PLAN: The results of the biopsies will be checked. I would recommend a repeat upper endoscopy in 3 years assuming there is no dysplasia on today's biopsies. He will continue his current regimen of omeprazole 40 mg b.i.d. long-term. He was advised that his recent liver tests were normal in regard to the underlying fatty liver and he was advised to continue his Ursodiol, try to watch his weight and diet carefully, and to avoid alcohol. We reviewed that would also obviously help his reflux and be good for his overall health. He was advised not to use any aspirin and NSAIDs for 1 week. He will see me in 1 year for a followup office visit as well. This has all been discussed with his . MD PEARL Marie/JOE / [id number] MTDD
== END 2023-10-20 12:20 | disposition home or self-care (01) ==
PROVIDERS: PCP Internal Medicine; Visit Provider Internal Medicine
PROC: 0DJ08ZZ Inspection of Upper Intestinal Tract, Via Natural or Artificial Opening Endoscopic (ICD-10-PCS; CPT 43235; principal; 2023-10-20 10:40)
DX: K20.80 Other esophagitis without bleeding (principal); K21.9 Gastro-esophageal reflux disease without esophagitis; K44.9 Diaphragmatic hernia without obstruction or gangrene; K22.70 Barrett's esophagus without dysplasia; Z87.11 Personal history of peptic ulcer disease; K76.0 Fatty (change of) liver, not elsewhere classified; I10 Essential (primary) hypertension; E78.5 Hyperlipidemia, unspecified; E11.9 Type 2 diabetes mellitus without complications; Z79.899 Other long term (current) drug therapy
CPT/HCPCS: 43239; 82947; 88305; J2250; J2704

== ENCOUNTER 2023-11-09 09:19 | Outpatient (REF) | payer BC, SELFPAY ==
--- NOTE | ~2023-11-09 | US_ITS ---
EXAMINATION: US COMPLETE ABDOMEN WITH LIVER ELASTOGRAPHY CLINICAL INFORMATION: Fatty liver COMPARISON: Prior abdomen ultrasound from 03/24/2022. TECHNIQUE: Real-time imaging of the abdominal viscera. Noninvasive ultrasound liver fibrosis assessment is performed using Shad ElastPQ point quantification shear wave elastography (2D-SWE) with a C5-2 MHz transducer. Multiple elastography samples are obtained. FINDINGS: PANCREAS: The visualized superior pancreatic head and neck have a normal in appearance. The remainder of the pancreas is obscured from visualization by the overlying bowel gas. ABDOMINAL AORTA: The proximal and distal aortic segments are normal in caliber. The mid aorta is obscured by bowel. INFERIOR VENA CAVA: Visualized portions are normal. LIVER: Liver is diffusely hyperechoic. 1.1 cm simple cyst in the right lobe of the liver. No suspicious hepatic lesion or intrahepatic ductal dilatation. The right lobe measures approximately 20 cm in length. The left lobe measures 13.4 cm in length. Portal flow is normal Shear wave liver elastography median stiffness is 1.29 m/s (reference: normal median stiffness is 1.3 m/s or less). IQR/median stiffness to assess sampling precision is 0.15 (reference: good quality data set is IQR/median stiffness of 0.15 or less). GALLBLADDER: Normal. The gallbladder is physiologically distended without evidence of stones, sludge, polyps, wall thickening or pericholecystic fluid. COMMON BILE DUCT: Normal in caliber measuring 0.3 cm in diameter. RIGHT KIDNEY: No hydronephrosis. No renal calculi or focal parenchymal lesions. The kidney measures 11.3 cm in maximum dimension. There are a few simple cysts of the right kidney, largest measuring up to 1.6 cm. No renal imaging follow-up is recommended for simple cysts. LEFT KIDNEY: No hydronephrosis. No renal calculi or focal parenchymal lesions. The kidney measures 10.8 cm in maximum dimension. A few simple cysts are present, largest measuring up to 3.8 cm. No renal imaging follow-up is recommended for simple cysts. SPLEEN: Normal. The spleen measures 9.8 cm in maximum dimension. FREE FLUID: None. US/US abdomen comp w elastography IMPRESSION: * Liver is diffusely hyperechoic consistent with steatosis. * Shear wave liver elastography reveals a normal median stiffness of 1.29 m/s (reference: normal median stiffness is 1.3 m/s or less). * There are benign cysts of the kidneys and liver. No suspicious lesions. REFERENCE: Society of Radiologists in Ultrasound Liver Stiffness Thresholds (2020): LIVER STIFFNESS THRESHOLDS: *Liver Stiffness equal or less than 1.3 m/s: High probability of being normal. *Liver Stiffness less than 1.7 m/s: In the absence of other known clinical signs, rules out compensated advanced chronic liver disease. *Liver Stiffness 1.7-2.1 m/s: Suggestive of compensated advanced chronic liver disease but need further test for confirmation. *Liver Stiffness over 2.1 m/s: Rules in compensated advanced chronic liver disease. *Liver Stiffness over 2.4 m/s: Suggestive of clinically significant portal hypertension. QUALITY OF DATA SET: *IQR/Median value equal or less than 0.15 implies a quality data set. *IQR/Median value over 0.15 implies a poor quality data set. SIGNIFICANT CHANGE FROM PRIOR EXAM: Significant change if liver stiffness measurement is 10% or greater from prior exam. OTHER CONSIDERATIONS: The stage of liver fibrosis may be overestimated in the setting of acute hepatitis, liver inflammation, elevated liver function tests, hepatic vascular congestion, obstructive cholestasis, non-fasting state, and infiltrative diseases such as amyloidosis and lymphoma. In some patients with NAFLD, the liver stiffness thresholds for compensated advanced chronic liver disease may be lower. In causes other than viral hepatitis and NAFLD, liver stiffness thresholds are not well established.
== END 2023-11-09 09:20 | disposition home or self-care (01) ==
LOC: HO.US 09:19
PROVIDERS: PCP Internal Medicine; Visit Provider Internal Medicine
DX: K76.0 Fatty (change of) liver, not elsewhere classified (principal); K22.10 Ulcer of esophagus without bleeding
CPT/HCPCS: 76700; 76981

== ENCOUNTER 2024-11-23 10:17 | Outpatient (REF) | payer BC, SELFPAY ==
--- NOTE | ~2024-11-23 | US_ITS ---
EXAMINATION: US ABDOMEN COMPLETE WITH LIVER ELASTOGRAPHY HISTORY: fatty liver, hepatic fibrosis TECHNIQUE: Real-time grayscale ultrasound imaging of the abdomen was performed and images were reviewed. COMPARISON: Comparison is made with the prior examination dated 11/09/2023. FINDINGS: Liver: There is enlargement of the right lobe of the liver. The liver demonstrates diffusely increased echotexture, consistent with steatosis. There is a 1.1 cm cyst in the right lobe. No intrahepatic biliary ductal dilatation is identified. There is normal hepatopedal flow in the portal vein. Ultrasound elastography of the liver was performed with 10 separate measurements of the liver parenchyma with the patient in the supine position. Measurements were obtained approximately 2 cm below Pj's capsule and perpendicular to the capsule. Images are of satisfactory quality. The median shear wave velocity is 1.81 m/s (previously 1.29 m/s). The interquartile range/median (IQR/median) is 0.18. Gallbladder and biliary tree: The gallbladder is unremarkable, without evidence of calculi, wall thickening, or pericholecystic fluid. There is no sonographic Gallardo sign. The common bile duct is normal in caliber measuring 3 mm. Kidneys: The right kidney measures 12.7 cm in length. The left kidney measures 11.4 cm in length. There are multiple bilateral renal cysts measuring up to 1.2 x 2.0 x 1.3 cm on the right and 4.7 x 4.2 x 3.8 cm on the left. The kidneys are otherwise unremarkable, without evidence of solid masses, hydronephrosis, or calculi. Pancreas: The pancreatic head, neck, and body are unremarkable. The pancreatic tail is obscured by bowel gas. Spleen: The spleen is normal in size and contour, measuring 8.2 cm in length. Abdominal aorta and inferior vena cava: The visualized portions of the abdominal aorta and inferior vena cava are normal in caliber. There is no free fluid in the abdomen. US/US abdomen comp w elastography IMPRESSION: Hepatic steatosis. The median shear wave velocity is 1.81 m/s, corresponding to a median liver stiffness of 9.92 kPa. The IQR/median value is 0.18. This is indicative of a poor quality data set, and the estimated liver stiffness may be unreliable. Findings are indicative of a high elastography value suggestive of advanced chronic liver disease. REFERENCE: Society of Radiologists in Ultrasound Liver Stiffness Thresholds (2020): LIVER STIFFNESS THRESHOLDS: *Shear wave velocity less than 1.3 m/s (Liver Stiffness equal or less than 5 kPa): High probability of being normal. *Shear wave velocity less than 1.7 m/s (Liver Stiffness less than 9 kPa): In the absence of other known clinical signs, rules out compensated advanced chronic liver disease. *Shear wave velocity between 1.7-2.1 m/s (Liver Stiffness 9-13 kPa): Suggestive of compensated advanced chronic liver disease but need further test for confirmation. *Shear wave velocity between 2.1-2.4 m/s (Liver Stiffness 13-17 kPa): Rules in compensated advanced chronic liver disease. *Shear wave velocity greater than 2.4 m/s (Liver Stiffness over 17 kPa): Suggestive of clinically significant portal hypertension. QUALITY OF DATA SET: *IQR/Median value equal or less than 0.15 implies a quality data set. *IQR/Median value over 0.15 implies a poor quality data set. SIGNIFICANT CHANGE FROM PRIOR EXAM: Significant change if liver stiffness measurement is 10% or greater from prior exam. OTHER CONSIDERATIONS: The stage of liver fibrosis may be overestimated in the setting of acute hepatitis, liver inflammation, elevated liver function tests, hepatic vascular congestion, obstructive cholestasis, non-fasting state, and infiltrative diseases such as amyloidosis and lymphoma. In some patients with NAFLD, the liver stiffness thresholds for compensated advanced chronic liver disease may be lower. In causes other than viral hepatitis and NAFLD, liver stiffness thresholds are not well established. Electronically signed by: Ghassan Meek MD 11/23/2024 12:10 PM [facility]
--- OUTSIDE RECORDS SUMMARY | 2024-11-23 13:42 | XMS_ITS ---
Author Organization [facility] Address [address] [place] [address] Care Team Providers Care Electronic Operator Name Role Phone Timothy Bey MD Primary Care Provider Kristinav Ghassan Castro Unavailable [phone] ALLERGIES No Known Allergies REASON FOR VISIT Patient presents today for a f/u office visit for fatty liver MEDICATIONS Medication SIG (Take, Route, Frequency, Duration) Notes Start Date End Date Status Omeprazole 20 MG 2 Orally Twice a day 04/19/2023 Active Ursodiol 500 MG 2 each morning and 1 each evening Orally Twice a day for 90 days 12/07/2023 Active Ursodiol 500 MG 2 each morning and 1 each evening Orally Twice a day for 90 days 11/07/2022 Active Aspirin 81 MG 1 tablet Orally Once a day Not-Taking Mounjaro 5 MG/0.5ML Subcutaneous for 84 Active Tamsulosin HCl 0.4 MG 1 capsule 30 minut es after the same meal each day Orally Once a day Active Atorvastatin Calcium 40 MG 1 tablet Orally Once a day Active Irbesartan 150 MG Oral for 90 Active Finasteride 5 MG 1 tablet Orally Once a day for 30 day(s) Active Farxiga 10 MG 1 tablet Orally Once a day for 30 day(s) Active SOCIAL HISTORY Sex Assigned At : Social History Observation Description Sex Assigned At Unknown Alcohol Screen Question Answer Notes Did you have a drink containing alcohol in the p ast year? Yes Points 0 Interpretation Negative VITAL SIGNS BMI 29.41 kg/m2 11/01/2024 Blood pressure systolic 000 mm Hg 11/01/19 25 Blood pressure diastolic 00 mm Hg 025 Height 70 in 11/01/2024 Temperature 97.5 degrees Fahrenheit 11/01/19 25 Weight 205 lbs 11/01/2024 Encounters Encounter Location Date Provider Diagnosis [facility] [address] [place] [address] 11/01/2024 Ghassan Navarro Fatty liver K76.0 ; Elevated liver enzymes R74.8 ; Encounter for screening for malignant neoplasm of colon Z12.11 ; History of adenomatous polyp of colon Z86.010 and Liver fibrosis K74.00 ASSESSMENTS Encounter Date Diagnosis Assessment Notes Treatment Notes Treatment Clinical Notes 11/01/2024 Fatty liver (ICD-10 - K76.0) 11/01/2024 Elevated liver enzymes (ICD-10 - R74.8) 11/01/2024 Encounter for screening for malignant neoplasm of colon (ICD-10 - Z12.11) Repeat colonoscopy and upper endoscopy in 03/202711/01/2024 History of adenomatous polyp of colon (ICD-10 - Z86.010) 11/01/2024 Liver fibrosis (ICD-10 - K74.00) PLAN OF TREATMENT Treatment Notes Assessment Notes Encounter for screening for malignant neoplasm of colon Repeat colonoscopy and upper endoscopy i n 03/2027 Pending Test Test Name Order Date LIVER PROFILE 11/01/2024 CBC w DIFF 11/01/2024 ALPHA-FETOPROTEIN,TUMOR MARKER Prothrombin Time INR 11/01/2024 Liver Fibrosis Pnl 11/01/2024 US abdomen comp w elastography 5 Next Appt Details Follow Up: 1 Year, Reason: Provider Name:Ghassan Navarro , 10/31/2025 01:00:00 PM, [address], [address], [place], [address],
--- OUTSIDE RECORDS SUMMARY | 2024-11-23 13:42 | XMS_ITS ---
Author Organization [facility] Address [address] [place] [address] Care Team Providers Care Machine Hand Name Role Phone Timothy Bey MD Primary Care Provider Unav ailGhassan Junior Unavailable [phone] REASON FOR VISIT r/f request ursodiol MEDICATIONS Medication SIG (Take, Route, Fr equency, Duration) Notes Start Date End Date Status Ursodiol 500 MG 2 each morning and 1 each evening Orally Twice a day for 90 days 11/07/2022 A ctive Encounters Encounter Location Date Provider Diagnosis [facility] [address] [place] [phone] 06/30/2024 Ghassan Navarro Fatty liver K76.0 ASSESSMENTS Encounter Date Diagnosis Assessment Notes Treatment Notes Treatment Clinical Notes 06/30/2024 Fatty liver (ICD-10 - K76.0) PLAN OF TREATMENT Medication Medication Name Sig Start Date Stop Date Notes Ursodiol 500 MG 2 each morning and 1 each evening Orally Twice a day for 90 days 11/07/2022 Next Appt Details Provider Name:Ghassan Navarro , 10/31/2025 01:00:00 PM, [address] [place] [address], [address], [place], [address],
--- OUTSIDE RECORDS SUMMARY | 2024-11-23 13:42 | XMS_ITS ---
Author Organization [facility] Address [address] [place] [address] Care Team Providers Care Materials Scheduler Name Role Phone Timothy Bey MD Primary Care Provider Unav ailable Ghassan Navarro [phone] Encounters Encounter Location Date Provider Diagnosis [facility] [address] [place] [address] 09/25/2024 Ghassan Navarro PLAN OF TREATMENT Next Appt Details Provider Name:Ghassan Navarro , 10/31/2025 01:00:00 PM, [address], [address], [place], [address],
--- OUTSIDE RECORDS SUMMARY | 2024-11-23 13:43 | XMS_ITS | Patient Health Record ---
Author Organization [facility] Address [address] [place] [address] Care Team Providers Care Ball Winder Name Role Phone Sotero MCFARLAND, Timothy Primary Care Provider Unav ailable Ghassan Navarro Unavailable [phone] ALLERGIES No Known Allergies RESULTS Component Value Reference Range Notes Liver Panel (Not yet reviewe d by provider) Interpretation: Performing Lab:[facility], [address] [place] [phone] Notes/Report: Bilirubin Total 0.9 0.0-1.0 mg/dL Bilirubin Direct 0.3 0.0-0.5 mg/dL Aspartate Amino Transferase 27 5-37 U/L Alanine Aminotransferase 47 0-40 U/L Total Protein 7.7 6.5-8.0 g/dL Albumin Level 4.5 3.5-5.0 g/dL Alkaline Phosphatase 60 39-117 U/L Complete Blood Count Auto Di ff Reviewed date:11/11/2024 07:35:42 PM Interpretation: Performing Lab:[facility], [address] [place] [phone] Notes/Report: White Blood Count 6.3 4.8-10.8 X10*3/uL Red Blood Count 4.95 4.60-5.80 X10*6/uL Hemoglobin 16.2 14.0-18.0 g/dl Hematocrit 47.1 42.0-52.0 % Mean Corpuscular Volume 95.2 80.0-98.0 fL Mean Corpuscular Hemoglobin 32.7 27.0-33.0 pg Mean Corpuscular HGB Conc 34.4 31.0-36.0 g/dl Red Cell Distribution Width 12.4 11.0-16.0 % Platelet Count 191 160-400 X10*3/uL Mean Platelet Volume 10.9 9.4-12.4 fL Neutrophils Percent Auto 67.0 45-73 % Imm Gran Pct Auto 0.2 0.0-0.4 % Lymphocytes Percent Auto 23.4 20-40 % Monocytes Percent Auto 7.0 2-11 % Eosinophils Percent Auto 1.9 0-4 % Basophils Percent Auto 0.5 0-2 % NRBC Pct Auto 0.0 0.0-0.2 /100WBC Neutrophils Absolute Auto 4.2 2.0-8.3 x10*3/u L Imm Gran Abs Auto 0.01 0.00-0.03 X10*3/uL Lymphocytes Absolute Auto 1.5 1.2-4.9 X10*3/u L Monocytes Absolute Auto 0.4 0.1-1.2 X10*3/uL Eosinophils Absolute Auto 0.1 0.0-0.4 X10*3/u L Basophils Absolute Auto 0.0 0.0-0.2 X10*3/uL NRBC Abs Auto 0.000 0.0-0.012 X10*3/uL Prothrombin Time INR Reviewed date:11/11/2024 07:35:56 PM Interpretation: Performing Lab:[address] [phone] Notes/Report: Prothrombin Time 12.2 10.9-12.4 SEC INTERNATIONAL NORM RATIO 1.0 0.9-1.1 INTERNATIONAL NORMALIZED RATIO (INR) REFERENCE RANGES Reference Range For patients not on anticoagulant therapy: 0.9 - 1.1 INR ranges for oral anticoagulant therapy: For prevention and treatment of venous thrombosis and pulmonary embolism: 2.0 - 3.0 For acute myocardial infarction with aspirin therapy: 2.0 - 3.0 For acute myocardial infarction without aspirin therapy: 3.0 - 4.0 For patients with mechanical prosthetic heart valves: 2.5 - 3.5 Alpha Fetoprotein Reviewed date:11/17/2024 06:31:39 PM Interpretation: Performing Lab:[address] [phone] Notes/Report: Alpha Fetoprotein 3.0 <6.1 ng/mL This test was performed using the Alexi Benny chemiluminescent method. Values obtained from different assay methods cannot be used interchangeably. AFP levels, regardless of value, should not be interpreted as absolute evidence of the presence or absence of disease. THIS TEST WAS PERFORMED AT: [facility] [address] [place] [phone] NAKIA RAMACHANDRAN MD Liver Fibrosis Pnl Reviewed date:11/17/2024 06:31:59 PM Interpretation: Performing Lab:[facility], [address] [place] [phone] Notes/Report: Liver Fibrosis Score 0.64 Liver Fibrosis Stage F3 Liver Fibrosis Interpretation SEE NOTE advanced fibrosis Fibro Test Score (f) Metavir Score f>=0 and f<=0.21 : F0 (no fibrosis) f>0.21 and f<=0.27 : F0-F1 (no fibrosis) f>0.27 and f<=0.31 : F1 (minimal fibrosis) f>0.31 and f<=0.48 : F1-F2 (minimal fibrosis) f>0.48 and f<=0.58 : F2 (moderate fibrosis) f>0.58 and f<=0.72 : F3 (advanced fibrosis) f>0.72 and f<=0.74 : F3-F4 (advanced fibrosis) f>0.74 and f<=1.00 : F4 (severe fibrosis) Nec Inflam Act Score 0.15 Nec Inflam Act Grade A0 Nec Inflam Act Interpretation SEE NOTE no activity ActiTest Score (a) Metavir Score a>=0 and a<=0.17 : A0 (no activity) a>0.17 and a<=0.29 : A0-A1 (no activity) a>0.29 and a<=0.36 : A1 (minimal activity) a>0.36 and a<=0.52 : A1-A2 (minimal activity) a>0.52 and a<=0.60 : A2 (significant activity) a>0.60 and a<=0.62 : A2-A3 (significant activity) a>0.62 and a<=1.00 : A3 (severe activity) QZQ-Jdljh-1-Macroglobulin 289 106-279 mg/dL FIB-Haptoglobin 47 43-212 mg/dL FIB-Apolipoprotein A1 151 94-176 mg/dL FIB-Total Bilirubin 0.6 0.2-1.2 mg/dL FIB-GGT 19 3-70 U/L FIB-ALT 22 9-46 U/L Reference ID [id number] Footnote SEE NOTE The reliability of results is dependent on compliance with the preanalytical and analytical conditions recommended by [employer]. The tests have to be deferred for: acute hemolysis, acute hepatitis, acute inflammation, extra hepatic cholestasis. The advice of a specialist should be sought for interpretation in chronic hemolysis and Gilbert's syndrome. The test interpretation is not validated in liver transplant patients. Isolated extreme values of one of the components should lead to caution in interpreting the results. In case of discordance between a biopsy result and a test, it is recommended to seek the advice of a specialist. The causes of these discordances could be due to a flaw of the test or to a flaw in the biopsy: i.e. a liver biopsy has a 33% variability rate for one fibrosis stage. FibroTest is interpretable for chronic hepatitis B and C, alcoholic and non alcoholic steatosis. ActiTest is interpretable for chronic hepatitis B and C. The performance characteristics have been determined by [facility]. It has not been cleared or approved by the U.S. Food and Drug Administration. Performance characteristics refer to the analytical performance of the test. [employer], the associated logo, [employer] and all associated [employer] douglas are the registered trademarks of [employer]. All third libertarian douglas - (R) and (TM) - are the property of their respective owners. (C) 3686-6721 [employer]. All rights reserved. THIS TEST WAS PERFORMED AT: [facility] [address] [place] [address] REJI MANRIQUEZ MD,PHD,RICKEY US abdomen comp w elastograp hy (Not yet reviewed by provider) Interpretation: Performing Lab: Notes/Report: [address] [address] Ultrasound Report Signed Patient: Tony Lopez MR#: [id number] : 1950 Acct:[id number] Age/Sex: 74 / M ADM Date: 11/23/24 Loc: HO.US Attending Dr: Ghassan Navarro MD Ordering Physician: Ghassan Navarro MD Date of Service: 11/23/24 Procedure(s): US abdomen comp w elastography Accession Number(s): [id number] cc: TIMOTHY FAIR MD; Ghassan Navarro MD EXAMINATION: US ABDOMEN COMPLETE WITH LIVER ELASTOGRAPHY HISTORY: fatty liver, hepatic fibrosis TECHNIQUE: Real-time grayscale ultrasound imaging of the abdomen was performed and images were reviewed. COMPARISON: Comparison is made with the prior examination dated 11/09/2023. FINDINGS: Liver: There is enlargement of the right lobe of the liver. The liver demonstrates diffusely increased echotexture, consistent with steatosis. There is a 1.1 cm cyst in the right lobe. No intrahepatic biliary ductal dilatation is identified. There is normal hepatopedal flow in the portal vein. Ultrasound elastography of the liver was performed with 10 separate measurements of the liver parenchyma with the patient in the supine position. Measurements were obtained approximately 2 cm below Pj's capsule and perpendicular to the capsule. Images are of satisfactory quality. The median shear wave velocity is 1.81 m/s (previously 1.29 m/s). The interquartile range/median (IQR/median) is 0.18. Gallbladder and biliary tree: The gallbladder is unremarkable, without evidence of calculi, wall thickening, or pericholecystic fluid. There is no sonographic Gallardo sign. The common bile duct is normal in caliber measuring 3 mm. Kidneys: The right kidney measures 12.7 cm in length. The left kidney measures 11.4 cm in length. There are multiple bilateral renal cysts measuring up to 1.2 x 2.0 x 1.3 cm on the right and 4.7 x 4.2 x 3.8 cm on the left. The kidneys are otherwise unremarkable, without evidence of solid masses, hydronephrosis, or calculi. Pancreas: The pancreatic head, neck, and body are unremarkable. The pancreatic tail is obscured by bowel gas. Spleen: The spleen is normal in size and contour, measuring 8.2 cm in length. Abdominal aorta and inferior vena cava: The visualized portions of the abdominal aorta and inferior vena cava are normal in caliber. There is no free fluid in the abdomen. US/US abdomen comp w elastography IMPRESSION: Hepatic steatosis. The median shear wave velocity is 1.81 m/s, corresponding to a median liver stiffness of 9.92 kPa. The IQR/median value is 0.18. This is indicative of a poor quality data set, and the estimated liver stiffness may be unreliable. Findings are indicative of a high elastography value suggestive of advanced chronic liver disease. REFERENCE: Society of Radiologists in Ultrasound Liver Stiffness Thresholds (2019): LIVER STIFFNESS THRESHOLDS: *Shear wave velocity less than 1.3 m/s (Liver Stiffness equal or less than 5 kPa): High probability of being normal. *Shear wave velocity less than 1.7 m/s (Liver Stiffness less than 9 kPa): In the absence of other known clinical signs, rules out compensated advanced chronic liver disease. *Shear wave velocity between 1.7-2.1 m/s (Liver Stiffness 9-13 kPa): Suggestive of compensated advanced chronic liver disease but need further test for confirmation. *Shear wave velocity between 2.1-2.4 m/s (Liver Stiffness 13-17 kPa): Rules in compensated advanced chronic liver disease. *Shear wave velocity greater than 2.4 m/s (Liver Stiffness over 17 kPa): Suggestive of clinically significant portal hypertension. QUALITY OF DATA SET: *IQR/Median value equal or less than 0.15 implies a quality data set. *IQR/Median value over 0.15 implies a poor quality data set. SIGNIFICANT CHANGE FROM PRIOR EXAM: Significant change if liver stiffness measurement is 10% or greater from prior exam. OTHER CONSIDERATIONS: The stage of liver fibrosis may be overestimated in the setting of acute hepatitis, liver inflammation, elevated liver function tests, hepatic vascular congestion, obstructive cholestasis, non-fasting state, and infiltrative diseases such as amyloidosis and lymphoma. In some patients with NAFLD, the liver stiffness thresholds for compensated advanced chronic liver disease may be lower. In causes other than viral hepatitis and NAFLD, liver stiffness thresholds are not well established. 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: REASON FOR REFERRAL No Information MEDICATIONS Medication SIG (Take, Route, Frequency, Duration) Notes Start Date End Date Status Tamsulosin HCl 0.4 MG 1 capsule 30 minut es after the same meal each day Orally Once a day Active Atorvastatin Calcium 40 MG 1 tablet Orally Once a day Active Irbesartan 150 MG Oral for 90 Active Omeprazole 20 MG 2 Orally Twice a [...] Mounjaro 5 MG/0.5ML Subcutaneous for 84 Active Finasteride 5 MG 1 tablet Orally Once a day for 30 day(s) Active Farxiga 10 MG 1 tablet Orally Once a day for 30 day(s) Active IMMUNIZATIONS Vaccine Route Administration Date Status Comme nts Influenza Unknown 09/09/2021 Administered Influenza Unknown 09/25/2022 Administered Influenza Unknown 05/09/2024 Administered SOCIAL HISTORY Sex Assigned At : Social History Observation Description Sex Assigned At Unknown Alcohol Screen Question Answer Notes Did you have a drink containing alcohol in the p ast year? Yes Points 0 Interpretation Negative PROBLEMS Problem Type ICD Code Onset Dates Problem Status W/U Status Risk SNOMED Code Notes Problem Gastro-esophageal reflux disease without esophagitis (K21.9) Active confirmed Gastro-esophage al reflux disease without esophagitis (995346142) Problem Encounter for screening for malignant neoplasm of colon (Z12.11) Active confirmed 064283725 Problem History of adenomatous polyp of colon (Z86.010) Active confirmed 969823996 Problem Encounter for screening for malignant neoplasm of rectum (Z12.12) Active confirmed Screening fo r malignant neoplasm of rectum (326705847) Problem Dysphagia (R13.10) Active confirmed Dysphagia (80959081) Problem Elevated liver enzymes (R74.8) Active confirmed 474724263 Problem Fatty liver (K76.0) Active confirmed 975220327 Problem Hiatal hernia (K44.9) Active confirmed Hiatal hernia (56050081) Problem Erosive esophagitis (K22.10) Active confirmed 80379845 Problem Gastritis (K29.70) Active confirmed Gastritis (7672784) Problem 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 confirmed Ulcer of esopha maura (77940610) Problem Esophagitis, erosive (K22.10) Active confirmed Ulcer of es ophagus (05082563) Problem Diverticulosis of colon (K57.30) Active confirmed Diverticulosi s of colon (589804980) Problem 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) Active confirmed Tanner's esophagus (698405429) Problem Liver fibrosis (K74.00) Active confirmed 39197750 Problem Esophageal dysphagia (R13.19) Active confirmed 41866521 Problem Chronic GERD (K21.9) Active confirmed Gastroesophagea l reflux disease (disorder) (610593878) VITAL SIGNS Temperature 97.5 degrees Fahrenheit 11/01/2024 Blood pressure diastolic 00 mm Hg 11/01/2024 Height 70 in 11/01/2024 Blood pressure systolic 000 mm Hg 11/01/2024 Weight 205 lbs 11/01/2024 BMI 29.41 kg/m2 11/01/2024 Encounters Encounter Location Date Provider Diagnosis [facility] [address] [place] [phone] 11/01/2024 Ghassan Navarro Fatty liver K76.0 ; Elevated liver enzymes R74.8 ; Encounter for screening for malignant neoplasm of colon Z12.11 ; History of adenomatous polyp of colon Z86.010 and Liver fibrosis K74.00 [facility] [address] [place] [phone] 12/07/2023 Ghassan Navarro [facility] [address] [place] [phone] 06/30/2024 Ghassan Navarro Fatty liver K76.0 [facility] [address] [place] [phone] 09/25/2024 Ghassan Navarro ASSESSMENTS Encounter Date Diagnosis Assessment Notes Treatment Notes Treatment Clinical Notes 11/01/2024 Elevated liver enzymes (ICD-10 - R74.8) 11/01/2024 Fatty liver (ICD-10 - K76.0) 06/30/2024 Fatty liver (ICD-10 - K76.0) 11/01/2024 Encounter for screening for malignant neoplasm of colon (ICD-10 - Z12.11) Repeat colonoscopy and upper endoscopy in 03/202711/01/2024 History of adenomatous polyp of colon (ICD-10 - Z86.010) 11/01/2024 Liver fibrosis (ICD-10 - K74.00) PLAN OF TREATMENT Pending Test Test Name Order Date LIVER PROFILE 04/06/2023 LIVER PROFILE 08/17/2023 LIVER PROFILE 05/07/2015 LIVER PROFILE 10/06/2015 LIVER PROFILE 03/04/2016 LIVER PROFILE 02/20/2022 LIVER PROFILE 11/01/2024 IRON + IBC (FE) 03/06/2015 FERRITIN 03/06/2015 CBC w DIFF 11/01/2024 CBC w DIFF 04/06/2023 CBC w DIFF 08/17/2023 CBC w DIFF 02/20/2022 PROTHROMBIN TIME (PT, INR) 02/20/2022 [id number] (A1A) 03/06/2015 ALPHA-FETOPROTEIN,TUMOR MARKER 5 ALPHA-FETOPROTEIN,TUMOR MARKER 3 MITOCHONDRIAL AB 03/06/2015 SMOOTH MUSCLE ANTIBODIES 03/06/2015 FLUOR. ANTINUCLEAR AB SCREEN (AGNES) 02/22 US ABDOMEN COMP WITH ELASTOGRAPHY 2021 Prothrombin Time INR 04/06/2023 Prothrombin Time INR 11/01/2024 Prothrombin Time INR 08/17/2023 Liver Panel 11/10/2024 Alpha Fetoprotein 02/20/2022 Liver Fibrosis Pnl 02/20/2022 Liver Fibrosis Pnl 04/06/2023 Liver Fibrosis Pnl 11/01/2024 Liver Fibrosis Pnl 08/17/2023 Pathology 10/20/2023 US abdomen comp w elastography 3 US abdomen comp w elastography 5 US abdomen comp w elastography 4 US abdomen comp w elastography 5 Future Test Test Name Order Date COLONOSCOPY 02/20/2022 UPPER GI ENDOSCOPY BALLOOON DILATION OF ESOPH 04/06/2023 UPPER GI ENDOSCOPY BALLOOON DILATION OF ESOPH 04/27/2023 UPPER GI ENDOSCOPY 08/17/2023 Next Appt Details Provider Name:Ghassan Navarro , 10/31/2025 01:00:00 PM, [address] [place] [address], [place] [address], [place], [phone], Insurance Providers Payer Name Payer Address Payer Phone Subscriber Number Group Number Insured Name Patient Relationship to Insured Coverage Start Date Coverage End Date [facility] [address] [place], [place] [id number] TONY LOPEZ Self - patient is the insured MEDICAL (GENERAL) HISTORY Medical History History ICD Code Hypertension Denies SC,CVA,Lung disease,renal disease Negative colonoscopies in 2004 and 2009- in [place] GERD--EGD-in 2008--his upper endoscopy revealed significant esophagitis, and a followup endoscopy in 2009 revealed healing and no Tanner's esophagus-these procedures were performed by Dr. Acosta in [place] [facility] in 2010 for a proximal small bowel obstruction with some inflammatory changes in the jejunum. This resolved without surgery. He underwent a small bowel enteroscopy at [facility] in 2010 with negative findings. He did not have any problems subsequent to that. 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 Biopsies from that area were negative for any sign of malignancy nor dysplasia, although one of the biopsies did show a small area of Tanner's mucosa. Gastric biopsies were negative for H. pylori. He does have a small to moderate-sized hiatal hernia. There was no esophageal stricture and no dilation was performed. diabetes Surgical History Surgery Date(Month/Year) Rotator cuff tear repair-right shoulder 02/19/2015 Deviated septum repair 2002 Umbilical hernia repair 1989 Right inguinal hernia repair as an infan t Left Rotator cuff surgery 12/17
--- OUTSIDE RECORDS SUMMARY | 2024-11-23 13:43 | XMS_ITS | Data Portability ---
Author Organization [facility], Main Office Address [address] [place] [address] Care Team Providers Care Manager Administrative Name Role Phone DONOVAN BEY Primary Care Provider ISABEL GONZALES Referring Provider PEYMAN JURADO Orthopedic Surgeon [phone] JHOANA YOUNG Urologist KASI CASTELLON Sewage Plant Attendant AARON ROJO [employer] Receiving Clerk [facility] PORFIRIO DOSHI Referring Provider TOMASZ BRANNON Phys. Med. & Rehab Assessment Encounter Date Assessment Date Assessment LastModified by Organization Details LastModified Time 06/19/2024 06/19/2024 This service was provided using telemedicine. Patient consented to video & audio visit Patient was located in the [facility]. Provider was located in the office. No other persons participated in the telemedicine visit except for the patient unless otherwise indicated here. {{}} Total time of visit was 28 minutes. Not available 06/19/2024 15:16:17 10/16/2024 10/16/2024 This service was provided using telemedicine. Patient consented to video & audio visit Patient was located in the [facility]. Provider was located in the office. No other persons participated in the telemedicine visit except for the patient unless otherwise indicated here. {{}} Total time of visit was 27 minutes. Not available 10/16/2024 15:53:16 Plan of Treatment Reminders Order Date Submit Date Provider Last Modified By Organization Details Last Modified Time Details Appointments PE EST 2024 01:00P M Donovan alejo MD Not available Not available Not available Lab CBC 2023 024 RAIZA [facility], [address], [place], [address], 02/26/2024 06:08:14 lipid panel, serum 2023 024 RAIZA [facility], [address], [address], [place], [address], 02/26/2024 06:08:15 PSA, serum or plasma 2023 024 RAIZA [facility], [address], [address], [place], [address], 02/26/2024 06:08:16 hemoglo bin A1C, fingers tick 2023 024 RAIZA In-Office Order, Internal Use Only DO Not Attach Compendium DO Not Attach Compendium, Do Not Delete/merge, [id number] 03/01/2024 13:27:49 HbA1c (hemogl obin A1c), blood 2023 024 [facility], [address], [place], [address], 05/25/2024 03:09:17 HbA1c (hemogl obin A1c), blood 2023 024 RAIZA [facility], [address], [place], [address], 06/24/2024 08:08:49 basic metabol ic 1998 panel, serum or plasma 2023 024 RAIZA [facility], [address], [place], [address], 06/24/2024 08:08:48 HbA1c (hemogl obin A1c), blood 2023 024 RAIZA [facility], [address], [address], [place], [address], 10/13/2024 06:08:19 CMP, serum or plasma 2023 024 [facility], [address], [place], [address], 10/16/2024 15:37:08 microal bumin/c reatini ne, mass ratio, urine 2023 024 [facility] [facility], [address], [place], [address], 10/16/2024 15:37:08 microal bumin/c reatini ne, mass ratio, urine 2023 024 [facility], [address], [address], [place], [address], 10/16/2024 15:54:14 Referral diabeti c ophthal mology referra l 2023 024 [email or web address] Not available 03/02/2024 10:08:30 diabeti c ophthal mology referra l 2023 024 [email or web address] Not available 06/19/2024 15:59:52 Procedures None recorde d. Surgeries None recorde d. Imaging electro cardiog canelo 2023 024 robert In-Office Order, Internal Use Only DO Not Attach Compendium DO Not Attach Compendium, Do Not Delete/merge, [id number] 08/02/2024 14:40:55 Medication Orders irbesar amato 75 mg tablet 2023 024 [id number], [address] [place], [address], 03/01/2024 14:04:17 Farxiga 5 mg tablet 2023 024 [id number], [address] [place], [address], 10/16/2024 15:35:58 irbesar amato 75 mg tablet 2023 [facility], [facility], [place], [address], 06/19/2024 15:02:35 irbesar amato 75 mg tablet 2023 [email or web address] [id number], [address] [place] [address], [place], [address], 08/02/2024 13:08:57 Patient TargetsNo targets recorded. Patient Instructions Encounter Date Encounter Id Patient Instructions Last Modified By Organization Details Last Modified Time 02/01/2024 [id number] chronic kidney disease: care instructions [email or web address] Not available 02/01/2024 14:13:53 learning about chronic kidney disease [email or web address] Not available 02/01/2024 14:13:53 03/01/2024 [id number] chronic kidney disease: care instructions Not available 03/01/2024 13:32:09 learning about chronic kidney disease Not available 03/01/2024 13:32:09 Medications (OTC, herbal therapies, supplements) reviewed and reconciled with patient and or caregiver, including potential side effects, drug interactions, instructions, and the consequences of not taking medication. Reviewed potential barriers to medication adherence, such as side effects from medication or cost of medication. [email or web address] Not available 03/01/2024 13:15:48 06/19/2024 [id number] albumin-creatini ne ratio: about this test Not available 06/19/2024 15:02:32 chronic kidney disease: care instructions Not available 06/19/2024 15:02:33 learning about chronic kidney disease Not available 06/19/2024 15:02:33 Medications (OTC, herbal therapies, supplements) reviewed and reconciled with patient and or caregiver, including potential side effects, drug interactions, instructions, and the consequences of not taking medication. Reviewed potential barriers to medication adherence, such as side effects from medication or cost of medication. [email or web address] Not available 06/19/2024 14:45:41 08/02/2024 [id number] chronic kidney disease: care instructions [email or web address] Not available 08/02/2024 13:08:24 learning about chronic kidney disease [email or web address] Not available 08/02/2024 13:08:24 10/16/2024 [id number] albumin-creatini ne ratio: about this test Not available 10/16/2024 15:54:11 chronic kidney disease: care instructions Not available 10/16/2024 15:37:20 learning about chronic kidney disease Not available 10/16/2024 15:37:20 Reason for Referral Diabetic Ophthalmology Refer ral for Renal disorder due to type 2 diabetes mellitus Referring Physician: Ciera Salazar, Internal Medicine, Encounter Date: 03/01/2024 Diabetic Ophthalmology Refer ral for Renal disorder due to type 2 diabetes mellitus Referring Physician: Ciera Salazar Internal Medicine, Encounter Date: 06/19/2024 Results Created Date Observation Date Name Description Value Unit Range Abnormal Flag Note LastModifiedBy Organization Detail LastModifiedTime 01/25/20 24 01/26/2024 COMP. METAB OLIC PANEL (14) glucose 117 mg/dL 70-99 above high normal Not Available [facility] ([facility]) [address] [place], [address], 01/26/2024 14:06:53 01/25/20 24 01/26/2024 COMP. METAB OLIC PANEL (14) BUN 20 mg/dL 8-27 Not Available [facility] ([facility]) [address] [place], [address], 01/26/2024 14:06:53 01/25/20 24 01/26/2024 COMP. METAB OLIC PANEL (14) creatinine 0.86 mg/dL 0.76-1 .27 Not Available [facility] ([facility]) [address] [place], [address], 01/26/2024 14:06:53 01/25/20 24 01/26/2024 COMP. METAB OLIC PANEL (14) eGFR 93 mL/mi n/1.7 3 >59 Not Available [facility] ([facility]) [address] [facility], [place], [address], 01/26/2024 14:06:53 01/25/20 24 01/26/2024 COMP. METAB OLIC PANEL (14) BUN/creatini ne ratio 23 10-24 Not Available [facility] ([facility]) [address] [facility], [place], [address], 01/26/2024 14:06:53 01/25/20 24 01/26/2024 COMP. METAB OLIC PANEL (14) sodium 138 mmol/ L 134-14 4 Not Available [facility] ([facility]) [address] [facility], [place], [address], 01/26/2024 14:06:53 01/25/20 24 01/26/2024 COMP. METAB OLIC PANEL (14) potassium 4.3 mmol/ L 3.5-5. 2 Not Available [facility] ([facility]) [address] [facility], [place], [address], 01/26/2024 14:06:53 01/25/20 24 01/26/2024 COMP. METAB OLIC PANEL (14) chloride 100 mmol/ L 96-106 Not Available [facility] ([facility]) [address] [facility], [place], [address], 01/26/2024 14:06:53 01/25/20 24 01/26/2024 COMP. METAB OLIC PANEL (14) anion gap 15.0 mmol/ L 10.0-1 8.0 Not Available [facility] ([facility]) [address] [place], [address], 01/26/2024 14:06:53 01/25/20 24 01/26/2024 COMP. METAB OLIC PANEL (14) carbon dioxide, total 23 mmol/ L 20-29 Not Available [facility] ([facility]) [address], [place], [address], 01/26/2024 14:06:53 01/25/20 24 01/26/2024 COMP. METAB OLIC PANEL (14) calcium 10.0 mg/dL 8.6-10 .2 Not Available [facility] ([facility]) [address], [place], [address], 01/26/2024 14:06:53 01/25/20 24 01/26/2024 COMP. METAB OLIC PANEL (14) protein, total 7.1 g/dL 6.0-8. 5 Not Available [facility] ([facility]) [address], [place], [address], 01/26/2024 14:06:53 01/25/20 24 01/26/2024 COMP. METAB OLIC PANEL (14) albumin 4.6 g/dL 3.8-4. 8 Not Available [facility] ([facility]) [address], [place], [address], 01/26/2024 14:06:53 01/25/20 24 01/26/2024 COMP. METAB OLIC PANEL (14) globulin, total 2.5 g/dL 1.5-4. 5 Not Available [facility] ([facility]) [address] [place], [address], 01/26/2024 14:06:53 01/25/20 24 01/26/2024 COMP. METAB OLIC PANEL (14) A/G ratio 1.8 1.2-2. 2 Not Available [facility] [address] [facility] [place], [address], 01/26/2024 14:06:53 01/25/20 24 01/26/2024 COMP. METAB OLIC PANEL (14) bilirubin, total 0.7 mg/dL 0.0-1. 2 Not Available [facility] ([facility]) [address] [place], [address], 01/26/2024 14:06:53 01/25/20 24 01/26/2024 COMP. METAB OLIC PANEL (14) alkaline phosphatase 73 IU/L 44-121 Not Available [facility] [address] [facility] [place], [address], 01/26/2024 14:06:53 01/25/20 24 01/26/2024 COMP. METAB OLIC PANEL (14) AST (SGOT) 17 IU/L 0-40 Not Available [facility] ([facility]) [address] [facility] [place], [address], 01/26/2024 14:06:53 01/25/20 24 01/26/2024 COMP. METAB OLIC PANEL (14) ALT (SGPT) 28 IU/L 0-44 Not Available [facility] ([facility]) [address] [facility], [place], [address], 01/26/2024 14:06:53 01/25/20 24 01/26/2024 ALBUM IN/CR EATIN INE RATIO ,URIN E creatinine, urine 72.6 mg/dL not estab. Not Available [facility] ([facility]) [address] [place], [address], 01/26/2024 14:06:53 01/25/20 24 01/26/2024 ALBUM IN/CR EATIN INE RATIO ,URIN E albumin, urine 73.0 ug/mL not estab. Not Available [facility] ([facility]) [address] [place], [address], 01/26/2024 14:06:53 01/25/20 24 01/26/2024 ALBUM IN/CR EATIN INE RATIO ,URIN E alb/creat ratio 101 mg/g_ creat 0-29 above high normal Viviana l: 0 - 29 Moder ately incre ased: 30 - 300 Sever esteban incre ased: >300 Not Available [facility] ([facility]) [address] [facility], [place], [address], 01/26/2024 14:06:53 02/25/2002/25/2024 CBC, PLATE LET, NO DIFFE RENTI AL WBC 5.2 x10e3 /uL 3.4-10 .8 Not Available [facility] ([facility]) [address] [facility], [place], [address], 02/26/2024 06:08:14 02/25/20 24 02/25/2024 CBC, PLATE LET, NO DIFFE RENTI AL RBC 4.99 x10e6 /uL 4.14-5 .80 Not Available [facility] ([facility]) [address] [facility], [place], [address], 02/26/2024 06:08:14 02/25/20 24 02/25/2024 CBC, PLATE LET, NO DIFFE RENTI AL hemoglobin 16.3 g/dL 13.0-1 7.7 Not Available [facility] ([facility]) [address] [facility], [place], [address], 02/26/2024 06:08:14 02/25/2002/25/2024 CBC, PLATE LET, NO DIFFE RENTI AL hematocrit 48.3 % 37.5-5 1.0 Not Available [facility] ([facility]) [address] [facility], [place], [address], 02/26/2024 06:08:14 02/25/2002/25/2024 CBC, PLATE LET, NO DIFFE RENTI AL MCV 97 fL 79-97 Not Available [facility] ([facility]) [address] [facility], [place], [address], 02/26/2024 06:08:14 02/25/20 24 02/25/2024 CBC, PLATE LET, NO DIFFE RENTI AL MCH 32.7 pg 26.6-3 3.0 Not Available [facility] ([facility]) [address] [facility], [place], [address], 02/26/2024 06:08:14 02/25/20 24 02/25/2024 CBC, PLATE LET, NO DIFFE RENTI AL MCHC 33.7 g/dL 31.5-3 5.7 Not Available [facility] ([facility]) [address] [facility], [place], [address], 02/26/2024 06:08:14 02/25/20 24 02/25/2024 CBC, PLATE LET, NO DIFFE RENTI AL RDW 12.3 % 11.6-1 5.4 Not Available [facility] ([facility]) [address] [facility], [place], [address], 02/26/2024 06:08:14 02/25/20 24 02/25/2024 CBC, PLATE LET, NO DIFFE RENTI AL platelets 188 x10e3 /uL 150-45 0 Not Available [facility] ([facility]) [address] [facility], [place], [address], 02/26/2024 06:08:14 02/25/20 24 02/25/2024 CBC, PLATE LET, NO DIFFE RENTI AL NRBC SALES AND CUSTOMER RELATIONS REP Not Available [facility] ([facility]) [address] [facility], [place], [address], 02/26/2024 06:08:14 02/25/20 24 02/25/2024 LIPID PANEL cholesterol, total 122 mg/dL 100-19 9 Not Available [facility] ([facility]) [address] [facility], [place], [address], 02/26/2024 06:08:15 02/25/20 24 02/25/2024 LIPID PANEL triglyceride s 56 mg/dL 0-149 Not Available [facility] ([facility]) [address] [facility], [place], [address], 02/26/2024 06:08:15 02/25/20 24 02/25/2024 LIPID PANEL HDL cholesterol 57 mg/dL >39 Not Available [facility]) [address] [place], [address], 02/26/2024 06:08:15 02/25/20 24 02/25/2024 LIPID PANEL VLDL cholesterol jonathan 12 mg/dL 5-40 Not Available [facility]) [address] [facility], [place], [address], 02/26/2024 06:08:15 02/25/20 24 02/25/2024 LIPID PANEL LDL chol calc ([facility]) 53 mg/dL 0-99 Not Available [facility] [address] [facility], [place], [address], 02/26/2024 06:08:15 02/25/20 24 02/25/2024 LIPID PANEL comment: SALES AND CUSTOMER RELATIONS REP Not Available [facility] ([facility]) [address] [facility], [place], [address], 02/26/2024 06:08:15 02/25/2002/25/2024 PSA TOTAL (REFL EX TO FREE) reflex criteria Commen t The perce nt free PSA is perfo rmed on a refle x basis only when the total PSA is betwe en 4.0 and 10.0 ng/mL . Not Available [facility] ([facility]) [address] [facility], [place], [address], 02/26/2024 06:08:16 02/25/20 24 02/26/2024 PSA TOTAL (REFL EX TO FREE) prostate specific Ag 1.6 NG/mL 0.0-4. 0 Lorenza ECLIA metho dolog y. Accor ding to the Ameri can Urolo gical Assoc iatio n, Serum PSA shoul d decre ase and remai n at undet ectab le level s after radic al prost atect liam. The AUA defin es bioch emica l recur rence as an initi al PSA value 0.2 ng/mL or great er follo wed by a subse quent confi rmato ry PSA value 0.2 ng/mL or great er. Value s obtai ishan with diffe rent assay metho ds or kits canno t be used inter silva earoni . Resul ts canno t be inter prete d as absol blanquita evide nce of the prese nce or absen ce of temo john se. Not Available [facility] ([facility]) [address] [facility], [place], [address], 02/26/2024 06:08:16 03/01/20 24 03/01/2024 hemog lobin A1C, finge rstic k A1C 5.3 % 4-6 normal Not Available In-Office Order Internal Use Only DO Not Attach Compendium DO Not Attach Compendium, Do Not Delete/merge, [id number] 03/01/2024 13:18:24 06/23/20 24 06/24/2024 BASIC METAB OLIC PANEL (7) glucose 98 mg/dL 70-99 normal Not Available [facility] ([facility]) [address] [facility], [place], [address], 06/24/2024 08:08:48 06/23/20 24 06/24/2024 BASIC METAB OLIC PANEL (7) BUN 18 mg/dL 8-27 normal Not Available [facility] ([facility]) [address] [place], [address], 06/24/2024 08:08:48 06/23/20 24 06/24/2024 BASIC METAB OLIC PANEL (7) creatinine 0.73 mg/dL 0.76-1 .27 below low normal Not Available [facility] ([facility]) [address] [place], [address], 06/24/2024 08:08:48 06/23/20 24 06/24/2024 BASIC METAB OLIC PANEL (7) eGFR 97 mL/mi n/1.7 3 >59 normal Not Available [facility] ([facility]) [address] [facility], [place], [address], 06/24/2024 08:08:48 06/23/20 24 06/24/2024 BASIC METAB OLIC PANEL (7) BUN/creatini ne ratio 25 10-24 above high normal Not Available [facility] ([facility]) [address] [facility] [place], [address], 06/24/2024 08:08:48 06/23/20 24 06/24/2024 BASIC METAB OLIC PANEL (7) sodium 139 mmol/ L 134-14 4 normal Not Available [facility] ([facility]) [address] [facility] [place], [address], 06/24/2024 08:08:48 06/23/20 24 06/24/2024 BASIC METAB OLIC PANEL (7) potassium 4.2 mmol/ L 3.5-5. 2 normal Not Available [facility] ([facility]) [address] [place], [address], 06/24/2024 08:08:48 06/23/20 24 06/24/2024 BASIC METAB OLIC PANEL (7) chloride 101 mmol/ L 96-106 normal Not Available [facility] ([facility]) [address] [place], [address], 06/24/2024 08:08:48 06/23/20 24 06/24/2024 BASIC METAB OLIC PANEL (7) carbon dioxide, total 24 mmol/ L 20-29 normal Not Available [facility] ([facility]) [address] [place], [address], 06/24/2024 08:08:48 06/23/20 24 06/24/2024 HEMOG LOBIN A1C hemoglobin A1C 5.4 % 4.8-5. 6 normal Predi abete s: 5.7 - 6.4 Diabe karolina: >6.4 Glyce kiersten contr ol for adult s with diabe karolina: <7.0 Not Available [facility] ([facility]) [address] [facility], [place], [address], 06/24/2024 08:08:49 10/12/20 24 10/12/2024 HEMOG LOBIN A1C hemoglobin A1C 5.5 % 4.8-5. 6 normal Predi abete s: 5.7 - 6.4 Diabe karolina: >6.4 Glyce kiersten contr ol for adult s with diabe karolina: <7.0 Not Available [facility] ([facility]) [address] [facility], [place], [address], 10/13/2024 06:08:19 08/02/2008/02/2024 elect rocar diogr am No observ ation record ed. [email or web address] In-Office Order Internal Use Only DO Not Attach Compendium DO Not Attach Compendium, Do Not Delete/merge, [id number] 08/02/2024 13:07:43 08/02/20 elect rocar diogr am No observ ation record ed. [email or web address] In-Office Order Internal Use Only DO Not Attach Compendium DO Not Attach Compendium, Do Not Delete/merge, [id number] 08/02/2024 16:52:28 Result Notes None recorded. Problems Name Problem SNOMED Code Status Onset Date Resolution Date Notes Provider Name and Address Organization Details Recorded Time Generali zed abdomina l pain 558253112 Completed 201305/31/2014 RECORDED 01/24/20 14 3:59PM BY BAYRON MATTHEWS PA-C, ANNOTATI ON/PRITI Salazar PA-C [address] [facility] [address] [address], [place], [address] , [facility] 6 13:40:38 Hearing loss [id number] Completed 201305/31/2014 RECORDED 01/31/20 14 6:58AM BY NABILA CARROLL ON/ADDEN DUM Ciera Salazar PA-C [address] [facility] [address], [place], [address] , [facility] 6 13:40:38 Burn [id number] Completed 201105/31/2014 RECORDED 07/04/20 12 2:03PM BY NABILA CARROLL ON/ADDEN DUM Ciera Salazar PA-C [address], [place], [address] , [facility] 6 13:40:38 Carpal tunnel syndrome [id number] Completed 201305/31/2014 RECORDED 01/24/20 14 3:59PM BY BAYRON MATTHEWS PA-C, NBAILA ON/ADDEN DUM Ciera Salazar PA-C [address], [place], [address] , [facility] 6 13:40:38 Cough [id number] Completed 201305/31/2014 IMPRESSI ON: POSSIBLY FROM THE ACEI; HE WILLHOLD THIS UNTIL DAY AND IF COUGH DOESN'T RESOLVE HE YAMILE RESTART IT.; RECORDED 01/31/20 14 6:58AM BY NABILA CARROLL ON/ADDEN DUM Ciera Salazar PA-C [address], [place], [address] , [facility] 6 13:40:38 Type 2 diabetes mellitus without complica tion [id number] Completed 201305/31/2014 RECORDED 01/24/20 14 3:59PM BY BAYRON MATTHEWS PA-C, NABILA ON/ADDEN DUM Ciera Salazar PA-C [address], [place], [address] , [facility] 6 13:40:38 Dysphagi a [id number] Completed 201105/31/2014 RECORDED 07/04/20 12 2:03PM BY NABILA CARROLL ON/ADDEN DUM Ciera Salazar PA-C [address], [place], [address] , [facility] 6 13:40:38 Dysuria [id number] Completed 201105/31/2014 RECORDED 07/04/20 12 2:03PM BY NABILA CARROLL ON/ADDEN DUM Ciera Martin JEROME-C [address], [place], [address] , [facility] 6 13:40:38 Elevated blood-pr essure reading without diagnosi s of hyperten eda [id number] Completed 201005/31/2014 RECORDED 06/25/20 11 9:12AM BY DEWEY BEDOYA MA, NABILA ON/ADDEN DUM Ciera Martin JEROME-C [address] [facility] [address], [place], [address] , [facility] 6 13:40:38 Liver function tests outside referenc e range 623996993 Completed 201105/31/2014 RECORDED 08/08/20 12 3:16PM BY NABILA CARROLL ON/ADDEN DUM Donovan Bey MD [address] [facility] [address], [place], [address] , [facility] 3 08:51:30 Gastroes ophageal reflux disease 868886702 Completed 201105/31/2014 RECORDED 07/04/20 12 2:03PM BY NABILA CARROLL ON/ADDEN DUM Ciera Martin CURRIEC [address] [facility] [address], [place], [address] , [facility] 6 13:40:38 Fever [id number] Completed 201105/31/2014 IMPRESSI ON: POSSIBLE UTI VS PROSTATI TIS. WILL TREAT WITH ABX AND CHECK URINE. ADVISED TO TAKE OFF FROM WORK TOMORROW .; RECORDED 09/13/20 12 1:01PM BY NABILA CARROLL ON/ADDEN DUM Ciera Martin CURRIEC [address] [facility] [address], [place], [address] , [facility] 6 13:40:38 Influenz a vaccine needed [id number] 06 Completed 201105/31/2014 RECORDED 07/04/20 12 2:14PM BY NEY HERR I, OFFICE VISIT Ciera Salazar PA-C [address] [facility] [address], [place], [address] , [facility] 6 13:40:38 Glucose level outside referenc e range [id number] Completed 201105/31/2014 DWIGHTI ON: WE DISCUSSE D WAYS TO GET HIS SUGARS UNDER BETTER CONTROL; PRIMARIL Y WEIGHT LOSS, EXERCISE AND GOOD FOOD CHOICES. WE WILL CHECK AN A1C AND THEN DECIDE WHETHER OR NOT HE NEEDS TO BE ON MEDS.; RECORDED 08/08/20 12 3:16PM BY NABILA CARROLL ON/ADDEN DUM Ciera Salazar PA-C [address] [facility] [address], [place], [address] , [facility] 6 13:40:38 Renewal of prescrip tion Completed 201305/31/2014 RECORDED 01/31/20 14 6:58AM BY NABILA CARROLL ON/ADDEN DUM Ciera Salazar PA-C [address] [facility] [address], [place], [address] , [facility] 6 13:40:38 Administ ration of bacteria l and viral vaccine Completed 200805/31/2014 RECORDED 10/30/19 09 10:35AM BY KIM BENNETT, OFFICE VISIT Ciera Salazar PA-C [address] [facility] [address], [place], [address] , [facility] 6 13:40:38 Nocturia [id number] Completed 201105/31/2014 RECORDED 07/04/20 12 2:03PM BY NABILA CARROLL ON/ADDEN DUM Ciera CURRIEC [address] [facility] [address], [place], [address] , [facility] 6 13:40:38 Eruption [id number] Completed 201105/31/2014 RECORDED 07/04/20 12 2:03PM BY NABILA CARROLL ON/ADDEN DUM Ciera Salazar PA-C [address], [place], [address] , [facility] 6 13:40:38 Anxiety state [id number] Completed 201205/31/2014 IMPRESSI ON: 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 IF HE TAKES THE MED HE WAS ADVISED NOT TO DRIVE BUT TO GET DROPPED OFF AND PICKED UP.; RECORDED 05/31/20 13 9:49AM BY NABILA CARROLL ON/ADDEN DUM Ciera Salazar PA-C [address], [place], [address] , [facility] 6 13:40:38 Screenin g for malignan t neoplasm of colon Completed 201105/31/2014 RECORDED 07/04/20 12 2:03PM BY NABILA CARROLL ON/PRITI DUM Ciera Salazar PA-C [address] [facility] [address], [place], [address] , [facility] 6 13:40:39 Increase d frequenc y of urinatio n [id number] Completed 201105/31/2014 IMPRESSI ON: THIS IS PROBABLY FROM BPH. WE WILL TREAT AND DO A REFERRAL TO UROLOGY FOR FURTHER MGMT.; RECORDED 08/03/20 12 4:05PM BY NABILA CARROLL ON/ADDEN DUM Ciera Salazar PA-C [address], [place], [address] , [facility] 6 13:40:38 Generali zed abdomina l pain 078529872 Completed 201306/01/2014 RECORDED 01/24/20 14 3:59PM BY BAYRON MATTHEWS PA-C, ANNOTATI ON/ADDEN DUM Ciera Martin CURRIEC [address] [facility] [address], [place], [address] , [facility] 6 13:40:38 Hearing loss 96749576 Completed 201306/01/2014 RECORDED 01/31/20 14 6:58AM BY NABILA CARROLL ON/ADDEN DUM Ciera Martin CURRIEC [address] [facility] [address], [place], [address] , [facility] 6 13:40:38 Burn [id number] Completed 201106/01/2014 RECORDED 07/04/20 12 2:03PM BY NABILA CARROLL ON/ADDEN DUM Ciera Martin CURRIEC [address] [facility] [address], [place], [address] , [facility] 6 13:40:38 Carpal tunnel syndrome 74650700 Completed 201306/01/2014 RECORDED 01/24/20 14 3:59PM BY BAYRON MATTHEWS PA-C, ANNOTATI ON/ADDEN DUM Ciera Martin MONROE [address] [facility] [address], [place], [address] , [facility] 6 13:40:38 Cough [id number] Completed 201306/01/2014 IMPRESSI ON: POSSIBLY FROM THE ACEI; HE WILLHOLD THIS UNTIL DAY AND IF COUGH DOESN'T RESOLVE HE YAMILE RESTART IT.; RECORDED 01/31/20 14 6:58AM BY NABILA CARROLL ON/ADDEN DUM Ciera Martin MONROE [address] [facility] [address], [place], [address] , [facility] 6 13:40:38 Type 2 diabetes mellitus without complica tion 675874500 Completed 201306/01/2014 RECORDED 01/24/20 14 3:59PM BY BAYRON MATTHEWS PA-C, ANNOTATI ON/ADDEN DUM Ciera Aslazar PA-C [address], [place], [address] , [facility] 6 13:40:38 Dysphagi a [id number] Completed 201106/01/2014 RECORDED 07/04/20 12 2:03PM BY PATSY CARROLLATI ON/ADDEN DUM Ciera Salazar PA-C [address], [place], [address] , [facility] 6 13:40:38 Dysuria 93751381 Completed 201106/01/2014 RECORDED 07/04/20 12 2:03PM BY NABILA CARROLL ON/ADDEN DUM Ciera Salazar PA-C [address] [facility] [address], [place], [address] , [facility] 6 13:40:38 Elevated blood-pr essure reading without diagnosi s of hyperten eda 258424884 Completed 201006/01/2014 RECORDED 06/25/20 11 9:12AM BY DEWEY BEDOYA MA, NABILA ON/ADDEN DUM Ciera Salazar PA-C [address] [facility] [address], [place], [address] , [facility] 6 13:40:38 Liver function tests outside referenc e range 293212652 Completed 201106/01/2014 RECORDED 08/08/20 12 3:16PM BY NABILA CARROLL ON/ADDEN DUM Donovan Bey MD [address] [facility] [address], [place], [address] , [facility] 3 08:51:30 Gastroes ophageal reflux disease 555603475 Completed 201106/01/2014 RECORDED 07/04/20 12 2:03PM BY NABILA CARROLL ON/ADDEN DUM Ciera Salazar PA-C [address] [facility] [address], [place], [address] , [facility] 6 13:40:38 Fever [id number] Completed 201106/01/2014 IMPRESSI ON: POSSIBLE UTI VS PROSTATI TIS. WILL TREAT WITH ABX AND CHECK URINE. ADVISED TO TAKE OFF FROM WORK TOMORROW .; RECORDED 09/13/20 12 1:01PM BY NABILA CARROLL ON/ADDEN DUM Ciera JEROME-C [address] [facility] [address], [place], [address] , [facility] 6 13:40:38 Influenz a vaccine needed [id number] 06 Completed 201106/01/2014 RECORDED 07/04/20 12 2:14PM BY NEY HERR I, OFFICE VISIT Ciera JEROME-Vipul [address] [facility] [address], [place], [address] , [facility] 6 13:40:38 Glucose level outside referenc e range 251983306 Completed 201106/01/2014 IMPRESSI ON: WE DISCUSSE D WAYS TO GET HIS SUGARS UNDER BETTER CONTROL; PRIMARIL Y WEIGHT LOSS, EXERCISE AND GOOD FOOD CHOICES. WE WILL CHECK AN A1C AND THEN DECIDE WHETHER OR NOT HE NEEDS TO BE ON MEDS.; RECORDED 08/08/20 12 3:16PM BY NABILA CARROLL ON/ADDEN DUM Ciera JEROME-C [address] [facility] [address], [place], [address] , [facility] 6 13:40:38 Renewal of prescrip tion Completed 201306/01/2014 RECORDED 01/31/20 14 6:58AM BY NABILA CARROLL ON/ADDEN DUM Ciera JEROME-C [address] [facility] [address], [place], [address] , [facility] 6 13:40:38 Administ ration of bacteria l and viral vaccine Completed 200806/01/2014 RECORDED 10/30/19 09 10:35AM BY KIM BENNETT, OFFICE VISIT Ciera Salazar PA-C [address], [place], [address] , [facility] 6 13:40:38 Nocturia [id number] Completed 201106/01/2014 RECORDED 07/04/20 12 2:03PM BY NABILA CARROLL ON/ADDEN DUM Ciera Salazar PA-C [address], [place], [address] , [facility] 6 13:40:38 Eruption [id number] Completed 201106/01/2014 RECORDED 07/04/20 12 2:03PM BY NABILA CARROLL ON/ADDEN DUM Ciera Salazar PA-C [address], [place], [address] , [facility] 6 13:40:38 Anxiety state [id number] Completed 201206/01/2014 IMPRESSI ON: 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 IF HE TAKES THE MED HE WAS ADVISED NOT TO DRIVE BUT TO GET DROPPED OFF AND PICKED UP.; RECORDED 05/31/20 13 9:49AM BY NABILA CARROLL ON/ADDEN DUM Ciera Salazar PA-C [address], [place], [address] , [facility] 6 13:40:38 Screenin g for malignan t neoplasm of colon Completed 201106/01/2014 RECORDED 07/04/20 12 2:03PM BY NABILA CARROLL ON/ADDEN DUM Ciera Salazar PA-C [address], [place], [address] , [facility] 6 13:40:39 Increase d frequenc y of urinatio n 934274448 Completed 201106/01/2014 IMPRESSI ON: THIS IS PROBABLY FROM BPH. WE WILL TREAT AND DO A REFERRAL TO UROLOGY FOR FURTHER MGMT.; RECORDED 08/03/20 12 4:05PM BY NABILA CARROLL/PRITI Salazar PA-C [address] [facility] [address], [place], [address] , [facility] 6 13:40:38 Type 2 diabetes mellitus 88394926 Completed 10/02/2014 Donovan Bey MD [address] [facility] [address], [place], [address] , [facility] 6 13:17:18 Liver function tests outside referenc e range 338995726 Active Probable fatty liver, followed by Dr Castellon. Had a liver biopsy showing fatty liver. Currentl y taking ursodiol Has potentia l underlyi ng fibrosis or cirrhosi s Not Available [facility] 4 07:43:13 Hypercho lesterol emia 54322246 Completed 10/05/2016 Donovan Bey MD [address] [facility] [address], [place], [address] , [facility] 6 13:16:09 Shoulder pain 19333146 Completed 201412/30/2018 Seen at [facility] Donovan Bey MD [address] [facility] [address], [place], [address] , [facility] 9 08:09:08 Anxiety 60573072 Active Not Available [facility] 4 07:43:13 Generali zed abdomina l pain 895224475 Completed 201305/08/2014 RECORDED 01/24/20 14 3:59PM BY BAYRON MATTHEWS PA-C, NABILA CARTER/PRITI Salazar PA-C [address] [facility] [address], [place], [address] , [facility] 6 13:40:38 Hearing loss 26580701 Completed 201305/08/2014 RECORDED 01/31/20 14 6:58AM BY NABILA CARROLL ON/ADDEN DUM Ciear Salazar PA-C [address], [place], [address] , [facility] 6 13:40:38 Patient status finding [id number] Completed 201309/05/2014 RECORDED 01/31/20 14 11:10AM BY NEY HERR I, OFFICE VISIT Ciera Salazar PA-C [address], [place], [address] , [facility] 6 13:40:38 Hyperpla dirk of prostate 338951485 Completed 08/12/2021 Removal Reason: Yoseph Bey MD [address], [place], [address] , [facility] 1 13:18:25 Burn [id number] Completed 201105/08/2014 RECORDED 07/04/20 12 2:03PM BY NABILA CARROLL ON/ADDEN DUM Ciera Salazar PA-C [address], [place], [address] , [facility] 6 13:40:38 Carpal tunnel syndrome 87707269 Completed 201305/08/2014 RECORDED 01/24/20 14 3:59PM BY BAYRON MATTHEWS PA-C, NABILA ON/VINICIUSEN RADHA Salazra PA-C [address], [place], [address] , [facility] 6 13:40:38 Cough [id number] Completed 201305/08/2014 IMPRESSI ON: POSSIBLY FROM THE ACEI; HE WILLHOLD THIS UNTIL DAY AND IF COUGH DOESN'T RESOLVE HE YAMILE RESTART IT.; RECORDED 01/31/20 14 6:58AM BY NABILA CARROLL ON/ADDEN DUM Ciera Salazar PA-C [address] [address], [place], [address] , [facility] 6 13:40:38 Chronic kidney disease stage 1 833006069 Completed 02/13/2019 Ciera Salazar PA-C [address] [address], [place], [address] , [facility] 3 16:09:53 Renal disorder due to type 2 diabetes mellitus 599544114 Active Not Available [facility] 4 07:43:13 Type 2 diabetes mellitus without complica tion 446167442 Completed 201305/08/2014 RECORDED 01/24/20 14 3:59PM BY BAYRON MATTHEWS PA-C, NABILA ON/ADDEN DUM Cierafadumo Salazar PA-C [address] [address], [place], [address] , [facility] 6 13:40:38 Dysphagi a [id number] Completed 201105/08/2014 RECORDED 07/04/20 12 2:03PM BY NABILA CARROLL ON/ADDEN DUM Ciera Salazar PA-C [address] [address], [place], [address] , [facility] 6 13:40:38 Dysuria 94491520 Completed 201105/08/2014 RECORDED 07/04/20 12 2:03PM BY NABILA CARROLL ON/ADDEN DUM Ciera Martin OMNROE [address] [address], [place], [address] , [facility] 6 13:40:38 Elevated blood-pr essure reading without diagnosi s of hyperten eda 340675675 Completed 201005/08/2014 RECORDED 06/25/20 11 9:12AM BY DEWEY BEDOYA MA, NABILA ON/ADDEN DUM Ciera Martin MONROE [address] [address], [place], [address] , [facility] 6 13:40:38 Liver function tests outside referenc e range 358015128 Completed 201105/08/2014 RECORDED 08/08/20 12 3:16PM BY NEY HERR I, NABILA ON/ADDEN DUM Donovan Bey MD [address] [facility] [address], [place], [address] , [facility] 3 08:51:30 Gastroes ophageal reflux disease 765222180 Completed 201105/08/2014 RECORDED 07/04/20 12 2:03PM BY NEY HERR I, NABILA ON/ADDEN DUM Ciera Salazar PA-C [address] [facility] [address], [place], [address] , [facility] 6 13:40:38 Fever [id number] Completed 201105/08/2014 IMPRESSI ON: POSSIBLE UTI VS PROSTATI TIS. WILL TREAT WITH ABX AND CHECK URINE. ADVISED TO TAKE OFF FROM WORK TOMORROW .; RECORDED 09/13/20 12 1:01PM BY NEY HERR I, NABILA ON/ADDEN DUM Ciera Salazar PA-C [address] [facility] [address], [place], [address] , [facility] 6 13:40:38 Influenz a vaccine needed 30391443751 06 Completed 201105/08/2014 RECORDED 07/04/20 12 2:14PM BY NEY HERR I, OFFICE VISIT Ciera Salazar PA-C [address] [facility] [address], [place], [address] , [facility] 6 13:40:38 Pure hypercho lesterol emia 625745349 Completed 10/05/2016 Donovan Bey MD [address] [facility] [address], [place], [address] , [facility] 6 13:16:17 Glucose level outside referenc e range 400112021 Completed 201105/08/2014 LAURA ON: WE DISCUSSE D WAYS TO GET HIS SUGARS UNDER BETTER CONTROL; PRIMARIL Y WEIGHT LOSS, EXERCISE AND GOOD FOOD CHOICES. WE WILL CHECK AN A1C AND THEN DECIDE WHETHER OR NOT HE NEEDS TO BE ON MEDS.; RECORDED 08/08/20 12 3:16PM BY NABILA CARROLL ON/ADDEN DUM Ciera Salazar PA-C [address], [place], [address] , [facility] 6 13:40:38 Essentia l hyperten eda 82472548 Completed 10/06/2016 Removal Reason: Not Specific Bella cobian, [facility] 1 10:05:59 Internal hemorrho ids 01761722 Active Not Available [facility] 4 07:43:14 Renewal of prescrip tion Completed 201305/08/2014 RECORDED 01/31/20 14 6:58AM BY NABILA CARROLL ON/ADDEN DUM Ciera CURRIEC [address] [facility] [address], [place], [address] , [facility] 6 13:40:38 Motion sickness 51931703 Active Not Available [facility] 4 07:43:13 Administ ration of bacteria l and viral vaccine Completed 200805/08/2014 RECORDED 10/30/19 09 10:35AM BY KIM BENNETT, OFFICE VISIT Ciera Salazar PA-C [address] [facility] [address], [place], [address] , [facility] 6 13:40:38 Nocturia 679134869 Completed 201105/08/2014 RECORDED 07/04/20 12 2:03PM BY NABILA CARROLL ON/ADDEN DUM Ciera Salazar PA-C [address] [facility] [address], [place], [address] , [facility] 6 13:40:38 Shoulder joint pain 410310230 Active Rotator cuff repair [facility] January 2015 [facility] Available [facility] 4 07:43:13 Eruption 105005628 Completed 201105/08/2014 RECORDED 07/04/20 12 2:03PM BY NABILA CARROLL ON/ADDEN DUM Ciera Salazar PA-C [address], [place], [address] , [facility] 6 13:40:38 Adult health examinat ion Completed 201309/05/2014 RECORDED 01/31/20 14 11:10AM BY NEY HERR I, OFFICE VISIT Ceira JEROME-C [address], [place], [address] , [facility] 6 13:40:38 Adult health examinat ion Completed 201105/08/2014 RECORDED 07/04/20 12 2:03PM BY NABILA CARROLL ON/ADDEN DUM Ciera Salazar PA-C [address], [place], [address] , [facility] 6 13:40:39 Anxiety state 751936360 Completed 201205/08/2014 IMPRESSI ON: 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 IF HE TAKES THE MED HE WAS ADVISED NOT TO DRIVE BUT TO GET DROPPED OFF AND PICKED UP.; RECORDED 05/31/20 13 9:49AM BY NABILA CARROLL ON/ADDEN DUM Ciera Salazar PA-C [address], [place], [address] , [facility] 6 13:40:38 Screenin g for malignan t neoplasm of colon Completed 201105/08/2014 RECORDED 07/04/20 12 2:03PM BY NABILA CARROLL ON/ADDEN DUM Ciera Salazar PA-C [address], [place], [address] , [facility] 6 13:40:39 Increase d frequenc y of urinatio n 423691143 Completed 201105/08/2014 IMPRESSI ON: THIS IS PROBABLY FROM BPH. WE WILL TREAT AND DO A REFERRAL TO UROLOGY FOR FURTHER MGMT.; RECORDED 08/03/20 12 4:05PM BY NABILA CARROLL ON/PRITI Salazar PA-C [address], [place], [address] , [facility] 6 13:40:38 Hypokale guy 65377789 Active Not Available [facility] 4 07:43:13 Microalb uminuria 248073619 Active Not Available [facility] 4 07:43:13 Type 2 diabetes mellitus 58920491 Completed 10/05/2016 Donovan Bey MD [address], [place], [address] , [facility] 6 13:17:18 Mixed hyperlip idemia 305315819 Active 2016 Not Available [facility] 4 07:43:13 Pain of left hip joint 70031434420 9100 Active 2018 Seen at [facility]. Had injectio n in 2018. Repeat left hip pain after a fall in October 2022. Injected again. 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 Not Available [facility] 4 07:43:13 Sensorin eural hearing loss 30822932 Active 2021 Bilatera l; seen by ENT; no hearing aids recommen ded. Not Available [facility] 4 07:43:13 Obstruct naveen sleep apnea syndrome 62634587 Active 2021 On CPAP Not Available [facility] 4 07:43:14 Pain of left shoulder joint 06780168924 059962 Active 2022 MRI shows tendinos is and rotator cuff tear. Followed by ortho. Not Available [facility] 4 07:43:13 Chronic kidney disease stage 1 739705315 Active 2022 Not Available [facility] 4 07:43:13 Osteoart hritis of knee 925158648 Active 2022 Left knee. Injected at [facility] Not Available [facility] 4 07:43:13 Gastro-e sophagea l reflux disease with ulcerati on 044176921 Active 2022 Followed by GI. 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 Procedures Surgical History Date Name Laterality Status Provider Name and Address Organization Details Recorded Time 01/31 Diabetic Foot Exam (Monofilament) completed Donovan Bey MD [address] [facility] [address], [place], [address] , [facility] 4 13:50:10 10/20 esophagogastroduodenoscopy completed Boy Garces [facility] 4 09:14:58 07/17 injection of knee completed Pavithra Garces [facility] 3 09:49:37 05/11 diabetic retinopathy screening completed Pavithra Garces [facility] 3 11:30:50 04/19 EGD completed Pavithra Garces [facility] 3 10:27:13 01/15 injection of hip joint completed Pavithra Garces [facility] 3 09:58:20 12/15 Shoulder joint surgery completed Rhiannon Ferrara MA [facility] 3 14:30:07 03/27 Colonoscopy completed Anneliese Gonzales [facility] 2 14:09:54 02/26 Diabetic Foot Exam (Monofilament) completed Donovan Bey MD [address] [facility] [address], [place], [address] , [facility] 2 12:45:03 09/04 injection completed Anneliese Gonzales [facility] 1 13:50:08 08/12 Diabetic Foot Exam (Monofilament) completed Donovan Bey MD [address] [facility] [address], [place], [address] , [facility] 1 16:45:37 03/19 Diabetic Foot Exam (Monofilament) completed George Sanchez [facility] 1 14:10:46 11/08 Diabetic Foot Exam (Monofilament) completed Carol Ortiz MA [facility] 1 14:19:19 08/07 Six-Item Cognitive Test completed Renee Patel MA [facility] 0 14:44:55 07/28 Diabetic Foot Exam (Monofilament) completed Shivani Roldan [facility] 9 13:35:26 03/17 Mini-Cog Test completed Kim Bennett MA [facility] 9 11:10:50 02/13 Diabetic Foot Exam (Monofilament) completed Nelsy Macias [facility] 9 15:56:52 12/09 Diabetic Foot Exam (Monofilament) completed Nelsy Macias [facility] 9 12:58:30 05/27 Diabetic Foot Exam (Monofilament) completed Ciera Salazar PA-C [address] [address], [place], [address] , [facility] 8 13:02:04 02/23 Diabetic Foot Exam (Monofilament) completed Donovan Bey MD [address] [facility] [address], [place], [address] , [facility] 8 14:30:26 08/28 Removal of Foreign Body completed Sebastian Mckeon MD [address] [address], [address] , [facility] 7 15:53:15 10/02 Other completed Donovan Bey MD [address] [facility] [address], [place], [address] , [facility] 5 06:51:22 02/19 Orthopedic Surgery completed Donovan Bey MD [address], [place], [address] , [facility] 5 08:39:42 02/22 ENT Surgery completed Donovan Bey MD [address], [place], [address] , [facility] 1 13:17:56 10/25 Hernia Repair completed Donovan Bey MD [address], [place], [address] , [facility] 4 11:17:48 10/25 Hernia Repair completed Donovan Bey MD [address], [place], [address] , [facility] 4 11:17:48 10/14 Circumcision completed Donovan Bey MD [address], [place], [address] , [facility] 1 13:17:08 Imaging Results Imaging Date Name Status LastModified by Organization Details LastModified Time 08/02/2024 electrocardiogram completed [email or web address] In-Off ice Order Internal Use Only DO Not Attach Compendium DO Not Attach Compendium, Do Not Delete/merge, [id number] 08/02/2024 13:07:43 08/02/2024 electrocardiogram completed [email or web address] In-Off ice Order Internal Use Only DO Not Attach Compendium DO Not Attach Compendium, Do Not Delete/merge, [id number] 08/02/2024 16:52:28 Procedure Notes None recorded. Medical Equipment None Reported. Allergies Allergen ID Allergen Name Allergen Category Reaction Reaction Severity Criticality Documentation Date Start Date Code Code System Note Provider Name and Address Organization Details Recorded Time 160 No known allergy (situatio n) Not available Not available Not available Not available 05/08/2014 53243 6003 SNOMED Deweybret eugene [place] null, [facility] 7 10:57:39 92583 metformin medicatio n diarrhea Not available Not available 12/09/2018 6809 RxNorm Ciera Chiuden PA-C [address] [facility] [address], [place], [address], [facility] 9 13:40:58 03547 lisinopri l medicatio n cough moderate Not available 06/18/2021 90847 RxNorm Ciera Chiuden PA-C [address] [facility] [address], [facility], [place], [id number], [facility] 13:21:15 Medications Name Sig Start Date Stop Date Status Note LastModified by Organization Details LastModified Time atorvasta tin 40 mg tablet Take 1 tablet every day by oral route. active Not Available Not Available No t Available silver sulfadiaz ine 1 % topical cream DAILY 06/10 completed RECORDED 06/18/20 11 9:31AM BY DONOVAN MCCOY MD, MEDICATI ON AUTO-URBAN CTIVATIO N; Not Available Not Available Not Available metformin 500 mg tablet Take 1 tablet twice a day by oral route for 90 days. active Not Available Not Available No t Available doxycycli ne hyclate 100 mg capsule 11/13 completed Not Available Not Available Not Available atorvasta tin 20 mg tablet Take 1 tablet every day by oral route. 05/10 completed Not Available Not Available Not Available Klor-Con 20 mEq tablet,ex tended release Take 1 tablet every day by oral route for 30 days. 08/07 completed Not Available Not Available Not Available metoprolo l succinate ER 100 mg tablet,ex tended release 24 hr Take 1 tablet every day by oral route for 90 days. 09/25 completed Not Available Not Available Not Available glipizide ER 5 mg tablet, extended release 24 hr TAKE 1 TABLET DAILY 06/18 completed Not Available Not Available Not Available atenolol 50 mg-chlort halidone 25 mg tablet TAKE 1 TABLET DAILY 02/05 completed nocturia Not Available Not Available Not Available ciproflox acin 250 mg tablet TWO TIMES DAILY 10/15/ 2012 10/22 /2012 completed RECORDED 08/25/20 12 10:42AM BY DONOVAN MCCOY MD, MEDICATI ON AUTO-URBAN CTIVATIO N; Not Available Not Available Not Available oxycodone -acetamin ophen 5 mg-325 mg tablet active Not Available Not Available Not Available alprazola m 0.5 mg tablet BEFORE PROCEDUR E 11/20 completed RECORDED 11/22/19 13 11:09AM BY DONOVAN MCCOY MD, MEDICATI ON AUTO-URBAN CTIVATIO N; Not Available Not Available Not Available tamsulosi n 0.4 mg capsule TAKE 1 CAPSULE DAILY DIRECTED active Not Available Not Available No t Available HeatmapsToTalent World Ultra Test strips USE 1 STRIPS PER DAY TO CHECK SUGARS 2023 active Not Available Not Available Not Avai lable glipizide ER 2.5 mg tablet, extended release 24 hr TAKE 1 TABLET DAILY active Not Available Not Available No t Available metformin 1,000 mg tablet TAKE 1 TABLET TWICE A DAY 05/27 completed Not Available Not Available Not Available hydrocort isone 1 %-pramoxi ne 1 % rectal foam FOUR TIMES DAILY 06/25 completed RECORDED 06/25/20 11 1:56PM BY DONOVAN MCCOY MD, ANNOTATI ON/ADDEN DUM; Not Available Not Available Not Available ibuprofen 200 mg tablet THREE TIMES DAILY, NEEDED 03/23 completed RECORDED 04/04/20 11 9:18AM BY DONOVAN MCCOY MD, MEDICATI ON AUTO-URBAN CTIVATIO N; Not Available Not Available Not Available betametha sone dipropion ate 0.05 % topical cream TWO TIMES DAILY 06/25 completed RECORDED 06/25/20 11 1:56PM BY DONOVAN MCCOY MD, ANNOTATI ON/ADDEN DUM; Not Available Not Available Not Available omeprazol e 20 mg capsule,d elayed release TAKE 1 CAPSULE EVERY MORNING 02/19 completed Not Available Not Available Not Available irbesarta n 75 mg tablet Take 1 tablet every day by oral route for 90 days, for hyperten eda. active Not Available Not Available No t Available tamsulosi n ER 0.4 mg capsule,e xtended release DAILY 30 MINUTES AFTER THE SAME MEAL EACH DAY FOR 2013 active RECORDED 03/10/20 14 11:16AM BY DONOVAN MCCOY MD, REFILL REQUEST; Not Available Not Available Not Available irbesarta n 150 mg tablet TAKE 1 TABLET BY MOUTH EVERY DAY 06/19 completed decrease d to 75 mg; pt has been cutting this in half Not Available Not Available Not Available diazepam 10 mg tablet PLEASE SEE ATTACHED FOR DETAILED DIRECTIO NS 01/26 completed Not Available Not Available Not Available scopolami ne 1 mg over 3 days transderm al patch APPLY BEHIND EAR NEEDED FOR NAUSEA LEAVE ON FOR THREE DAYS THEN REMOVE 01/26 completed Not Available Not Available Not Available lisinopri l 2.5 mg tablet 1 TABLET DAILY 06/18 completed Not Available Not Available Not Available doxycycli ne hyclate 100 mg tablet Take 1 tablet twice a day by oral route for 3 days. 12/20 completed Not Available Not Available Not Available atenolol 50 mg tablet DAILY 2008 active RECORDED 05/09/20 09 5:11PM BY DONOVAN MCCOY MD, ANNOTATI ON/ADDEN DUM; Not Available Not Available Not Available finasteri de 5 mg tablet Take 1 tablet every day by oral route for 90 days. active Not Available Not Available No t Available naproxen 500 mg tablet Take 1 tablet 3 times a day by oral route as needed for 30 days. 07/28 completed PRN Not Available Not Available Not Available diazepam 5 mg tablet Take 2 tablets by oral route as needed for 1 day. active Not Available Not Available No t Available oxycodone 5 mg tablet TAKE 1-2 TABLETS EVERY 4 HOURS NEEDED FOR PAIN DO NOT DRIVE WHILE TAKING THIS MEDICATI ON 01/26 completed Not Available Not Available Not Available Klor-Con M20 mEq tablet,ex tended release TAKE 1 TABLET DAILY active Not Available Not Available No t Available Glipizide XL 5 mg tablet,ex tended release 1 po qd 12/09 completed Not Available Not Available Not Available OneTouch UltraSoft Lancets Take 1 each 3 times a day by miscell. route as directed for 30 days. active Not Available Not Available No t Available ursodiol 500 mg tablet Take 3 tablets every day by oral route. active Not Available Not Available No t Available Byetta 5 mcg/dose (250 mcg/mL)1. 2 mL subcutane ous pen injector INJECT 5 MCG SUBCUTAN EOUSLY TWICE A DAY 05/29 completed Not Available Not Available Not Available omeprazol e TWO TIMES DAILY 2012 active RECORDED 02/17/20 13 9:12AM BY DONOVAN MCCOY MD, REFILL REQUEST; Not Available Not Available Not Available Preparati on H Hydrocort isone 2 TIMES A DAY 01/22 completed RECORDED 04/04/20 11 9:18AM BY DONOVAN MCCOY MD, MEDICATI ON AUTO-URBAN CTIVATIO N; Not Available Not Available Not Available blood pressure monitor DAILY MONITORI NG OF BP FOR HTN 2009 active RECORDED 01/31/20 14 11:09AM BY NEY HERR I, OFFICE VISIT; Not Available Not Available Not Available Adult Low Dose Aspirin DAILY 06/25 completed RECORDED 06/25/20 11 1:56PM BY DONOVAN MCCOY MD, ANNOTATI ON/ADDEN DUM; Not Available Not Available Not Available Zostavax (PF) 19,400 unit/0.65 mL subcutane ous suspensio n ONE TIME DOSE 11/17 completed RECORDED 11/17/19 13 8:07AM BY DONOVAN MCCOY MD, MEDICATI ON AUTO-URBAN CTIVATIO N; Not Available Not Available Not Available omeprazol e 20 mg tablet,de layed release Take 1 tablet every other day by oral route. active OTC; recommen ded by GI Not Available Not Available Not Available Farxiga 10 mg tablet TAKE 1 TABLET BY MOUTH EVERY DAY active Not Available Not Available No t Available Farxiga 5 mg tablet TAKE 1 TABLET DAILY 10/16 completed Not Available Not Available Not Available Bydureon BCise 2 mg/0.85 mL subcutane ous auto-inje ctor Inject 2 mg every week by subcutan eous route for 90 days. 05/29 completed Not Available Not Available Not Available Ozempic 0.25 mg or 0.5 mg (2 mg/1.5 mL) subcutane ous pen injector Inject 0.25 mg every week by subcutan eous route for 30 days. 2021 active Not Available Not Available Not Lorri downey FreeStyle Shandra 14 Day Sensor kit 03/17 completed Not Available Not Available Not Available BD Marcy 2nd Gen Pen Needle 32 gauge x 5/32 FOR USE WITH BYETTA PENS TWICE A DAY active Not Available Not Available No t Available Onetouch Delica Safety Lancet 30 gauge USE DIRECTED . ONCE PER DAY TESTING. E11.65 active Not Available Not Available No t Available Mounjaro 5 mg/0.5 mL subcutane ous pen injector Inject 5 mg every week by subcutan eous route for 90 days. active Not Available Not Available No t Available Mounjaro 2.5 mg/0.5 mL subcutane ous pen injector INJECT 2.5 MG SUBCUTAN EOUSLY WEEKLY active Not Available Not Available No t Available Vitals Date Recorded Body height Body mass index (BMI) Body weight Heart rate Oxygen saturation Oxygen saturation in Arterial blood by Pulse oximetry Body temperature Systolic blood pressure Diastolic blood pressure Provider Name and Address Organization Details Last Updated DateTime 4 175.26 cm 30.4 kg/m2 07175.0 3 g 69 /min 97 % 97 % 98.3 [degF] 115 mm[Hg] 68 mm[Hg] Aide Garza MA [facility] [place] 4 13:31:32 Date Recorded Body height Body mass index (BMI) Body weight Oxygen saturation Oxygen saturation in Arterial blood by Pulse oximetry Heart rate Body temperature Systolic blood pressure Diastolic blood pressure Provider Name and Address Organization Details Last Updated DateTime 4 175.26 cm 29.3 kg/m2 78305.6 9 g 98 % 98 % 64 /min 97.6 [degF] 111 mm[Hg] 61 mm[Hg] Kim Bennett MA [facility] [place] 4 13:25:42 Date Recorded Body height Body mass index (BMI) Body weight Provider Name and Address Organization Details Last Updated DateTime 06/19/2024 175.26 cm 28.4 kg/m2 22967.74 g Dewey boone, DAIN [facility] 06/19/2024 14:46:47 Date Recorded Body height Body mass index (BMI) Body weight Heart rate Oxygen saturation Oxygen saturation in Arterial blood by Pulse oximetry Body temperature Systolic blood pressure Diastolic blood pressure Provider Name and Address Organization Details Last Updated DateTime 4 175.26 cm 29.1 kg/m2 17578.7 g 62 /min 98 % 98 % 98.5 [degF] 90 mm[Hg] 49 mm[Hg] Kiya conrad MA [facility] 4 12:50:34 Social History Question Answer Notes LastModified by Organizat ion Details LastModified Time Tobacco Smoking Status Never Smoker Not Available [facility] 08/27/2020 03:36:36 Do You Have An Advance Directive? No [email or web address] Information not available 02/26/2022 What Is Your Level Of Alcohol Consumption? Occasional [id number] Information not available 08/27/2020 Is Blood Transfusion Acceptable In An Emergency? Yes [id number] Information not available 08/27/2020 What Is Your Level Of Caffeine Consumption? Moderate Coffee Information not available 01/26/2023 How Much Tobacco Do You Chew? None [id number] Information not available 08/27/2020 Are You Currently Employed? Yes [id number] Information not available 08/27/2020 What Type Of Diet Are You Following? REGULAR [id number] Information not available 08/27/2020 Which Illicit Or Recreational Drugs Have You Used? None [id number] Information not available 08/27/2020 Do You Or Have You Ever Used E-cigarettes Or Vape? 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 No [email or web address] Information not available 02/26/2022 Are There Any Guns Present In Your Home? No [email or web address] Information not available 02/26/2022 Live Alone Or With Others? With Others (Brittni) [email or web address] Information not available 02/26/2022 Do You Take Precautions To Prevent Distracted Driving? Yes Information not available 09/04/2015 How Often Do You Need To Have Someone Help You When You Read Instructions, Pamphlets, Or Other Written Material From Your Doctor Or Pharmacy? Never Information not available 09/04/2015 Have You Served In The ? No Information not available 08/28/2017 Have You Or Anyone In Your Household Had Any Of The Following Symptoms In The Last 14 Days: Sore Throat, Cough, Chills, Body Aches For Unknown Reasons, Shortness Of Breath For Unknown Reasons, Loss Of Smell, Loss Of Taste, Fever At Or Greater Than 100 Degrees Fahrenheit? No [email or web address] Information not available 08/07/2020 Are You Or Anyone In Your Household A Health Care Provider Or Emergency Responder? No Information not available 08/07/2020 To The Best Of Your Knowledge Have You Been In Close Proximity To Any Individual Who Tested Positive For COVID-19? No [email or web address] Information not available 08/07/2020 Have You Recently Traveled To A COVID-19 High Risk Area Or Gathering In The Last 10 Days? No [email or web address] Information not available 11/08/2020 What Was The Date Of Your Most Recent Tobacco Screening? 02/01/2024 [email or web address] Information not available 02/01/2024 How Many Children Do You Have? 3 2 Sons And 1 Daughter 7 GC [id number] Information not available 08/27/2020 Do You Use Protection During Sex? No [id number] Information not available 08/27/2020 Do You Use Your Seat Belt Or Car Seat Routinely? Yes [email or web address] Information not available 08/12/2021 Seat Belts Used Routinely Yes [email or web address] Information not available 02/26/2022 Are You Sexually Active? Yes [id number] Information not available 08/27/2020 Smoke Alarm In Home Yes [email or web address] Information not available 02/26/2022 Do You Have Smoke And Carbon Monoxide Detectors In Your Home? Yes Information not available 08/12/2021 At What Age Did You Start Smoking Tobacco? 2 [id number] Information not available 08/27/2020 Are You Passively Exposed To Smoke? No Information not available 09/30/2015 Do You Or Have You Ever Used Smokeless Tobacco? Never Used Smokeless Tobacco [id number] Information not available 08/27/2020 How Much Tobacco Do You Smoke? No [id number] Information not available 08/27/2020 Do You Use Any Illicit Or Recreational Drugs? No Information not available 01/26/2023 Do You Use Sunscreen Routinely? No [id number] Information not available 08/27/2020 How Many Years Have You Smoked Tobacco? 0 [id number] Information not available 08/27/2020 Do You Or Have You Ever Used Any Other Forms Of Tobacco Or Nicotine? No Information not available 01/26/2023 Sex: Unknown Functional Status Question Answer Note LastModified by Organizat ion Details LastModified Time Are you able to walk? [email or web address] Information not available 01/26/2023 Are you able to care for yourself? Yes [id number] Information not available 08/27/2020 What is your exercise level? Occasional [id number] Information not available 08/27/2020 Mental Status None recorded. Family History Relationship Description Onset Age of this Age Resolved Age Notes LastModified by Organization Details LastModified Time Mother Deep venous thrombosis born [birth year] alive in 2019 [email or web address] Not available 10/16/2024 14:53:34 Father Hypertensive disorder born 8 alive in 2019 [email or web address] Not available 03/17/2019 11:28:20 Medical History Condition Response Gout N Other N Kidney Stones N Blood Diseases N Hyperthyroidism N Breast Cancer N Hypothyroidism N Lung Disease N Depression N COPD N Defects or Inherited Disease N Anesthesia Complications N Headaches/Migraines N Anxiety Disorder N Varicose Veins N Obesity N Vision or Eye Problems N Arthritis Y Head Injury/Concussion N Infertility N Polyps N Congenital Anomalies N Acid Reflux (GERD) Y Cancer N Stroke N ADHD N Endometriosis N High Cholesterol Y Liver Disease N Fibromyalgia N Kidney Disease N Heart Problems N Ear or Hearing Problems N Hospitalizations N Thyroid Problems N GI Problems N Acne N Eating Disorder N Skin Problems N Anemia N Constipation N Bladder Problems N Mental Illness N Diabetes Y Ovarian Cancer N Blood Transfusions N Seizures/Epilepsy N Tuberculosis N AIDS/HIV N Congestive Heart Failure (CHF) N Eczema N Abuse/Domestic Violence N Diverticulitis N Asthma N Allergies Y Reflux/GERD Y Hepatitis N Pulmonary Embolism N Hypertension Y Chicken Pox N Autism Spectrum Disorder (ASD) N Osteoporosis N Immunizations Vaccine Type Date Status Note Provider Nam e and Address Organization Details Recorded Time pneumococcal polysaccharide PPV23 5 completed Not Available [facility] 11/11/2019 02:21:41 Tdap 9 completed Pavithra Garces null, [facility] 12/09/2023 09:53:19 Influenza, split virus, trivalent, preservative 2 completed Pavithra Garces null, [facility] 12/09/2023 09:53:19 zoster live 3 completed Pavithra Garces null, [facility] 12/09/2023 09:53:19 COVID-19, mRNA, LNP-S, PF, 100 mcg/0.5mL dose or 50 mcg/0.25mL dose 1 completed Pavithra cobian, [facility] 12/09/2023 09:53:19 COVID-19, mRNA, LNP-S, PF, 100 mcg/0.5mL dose or 50 mcg/0.25mL dose 1 completed Pavithra Garces null, [facility] 12/09/2023 09:53:19 zoster recombinant 1 completed Pavithra Garces null, [facility] 12/09/2023 09:53:19 COVID-19, mRNA, LNP-S, PF, 100 mcg/0.5mL dose or 50 mcg/0.25mL dose 1 completed Pavithra Garces null, [facility] 12/09/2023 09:53:19 Influenza, split virus, quadrivalent, PF 5 completed Not Available [facility] 11/11/2019 02:22:02 zoster recombinant 4 completed DAIN Bui, [facility] 03/01/2024 13:14:46 Influenza, split virus, quadrivalent, PF 6 completed Not Available [facility] 11/11/2019 02:22:04 Influenza, split virus, quadrivalent, PF 7 completed Not Available [facility] 11/11/2019 02:22:13 Pneumococcal conjugate PCV 13 8 completed Not Available [facility] 11/11/2019 02:21:38 Td (adult), 2 Lf tetanus toxoid, preservative free, adsorbed 9 completed Not Available [facility] 11/11/2019 02:21:30 Influenza, high-dose, trivalent, PF 9 completed Not Available [facility] 11/11/2019 02:22:09 Influenza, high-dose, quadrivalent, PF 0 completed Donovan Bey MD [address], [address], [facility] 08/07/2020 15:28:09 pneumococcal polysaccharide PPV23 0 completed Donovan Bey MD [address], [address], [facility] 08/07/2020 15:28:09 Influenza, high-dose, quadrivalent, PF 1 completed Donovan Bey MD [address], [address], [facility] 08/12/2021 13:41:04 Influenza, split virus, trivalent, PF 4 completed Not Available [facility] 11/11/2019 02:21:58 Influenza, high-dose, quadrivalent, PF 2 completed Leanna Diaz [facility], [facility] 09/25/2022 14:51:58 Influenza, high-dose, quadrivalent, PF 3 completed Donovan Bey MD [address], [address], [facility] 07/28/2023 17:17:31 Influenza, high-dose, trivalent, PF 4 completed Donovan Bey MD [address], [address], [facility] [place] 08/02/2024 17:38:52 Past Encounters Encounter ID Performer Location Encounter Start Date Encounter Closed Date Diagnosis/Indication Diagnosis SNOMED-CT Code Diagnosis ICD10 Code Diagnosis Note [id number] [address] [address] [place] [address] 05/08/2008 00:00:00 5375 [employer] [address] [facility] [place] [address] 10/30/2008 00:00:00 [id number] auto[employer] erce [address] [facility] [place] [address] 12/05/2008 00:00:00 5377 auto[employer] erce [address] [facility] [place] [address] 01/03/2009 00:00:00 5378 [employer] [address] [facility] [place] [address] 02/05/2009 00:00:00 5379 [employer] [address] [facility] [place] [address] 05/09/2009 00:00:00 [id number] [employer] er[employer] [address] [facility] [place] [address] 06/03/2009 00:00:00 5381 auto[employer] erce [address] [facility] [place] [address] 12/19/2009 00:00:00 5382 auto[employer] erce [address] [facility] [place] [address] 06/18/2010 00:00:00 5383 autoEComm erce [address] [facility] [place] [address] 12/23/2010 00:00:00 5384 auto[employer] erce [address] [facility] [place] [address] 04/08/2011 00:00:00 5385 auto[employer] erce [address] [facility] [place] [address] 06/25/2011 00:00:00 5386 autoEComm erce [address] [facility] [place] [address] 12/30/2011 00:00:00 5387 autoE[employer] erce [address] [facility] [place] [address] 07/04/2012 00:00:00 [id number] [employer] erce [address] [facility] [place] [address] 08/03/2012 00:00:00 5389 [employer] erce [address] [facility] [place] [address] 08/08/2012 00:00:00 5390 [employer] er[employer] [address] [facility] [place] [address] 09/13/2012 00:00:00 5391 [employer] [address] [facility] [place] [address] 11/16/2012 00:00:00 [id number] [employer] [address] [facility] [place] [address] 05/31/2013 00:00:00 [id number] [employer] erce [address] [facility] [place] [address] 01/30/2014 00:00:00 [id number] Ney Tiago Main Office [address] [facility] [address] [place] [address] 10/02/2014 10:31:05 10/02/2014 11:36:29 Renal disorder due to type 2 diabetes mellitus 048593112 He is not on any meds. This has been diet-contr olled with an A1C ranging from 5.5 to 6.3. Needs infl uenza immunization 746462616 Liver func tion tests outside reference range 177147772 we stopped his statin but his LFT's did not improve. He is not having any symptoms. Hypercholesterolemia 53290908 unable to restart statin because of increased LFT's. Will refer to GI for further evaluation . Chronic ki dney disease stage 1 [id number] Ney Ordoñez Main Office [address] [place] [address] 10/12/2014 12:42:20 10/12/2014 13:36:53 Renal disorder due to type 2 diabetes mellitus 997506166 He is not on any meds. His A1C has increased to 7.8. We will wait another 3 months before starting meds. He will start checking his sugars and will cut back on the wine to see if this helps his sugars. Liver func tion tests outside reference range 843625379 we stopped his statin but his LFT's did not improve. He is not having any symptoms. Essential hypertension 93737599 [id number] Ney Ordoñez Main Office [address] [place] [address] 01/14/2015 14:02:37 01/14/2015 15:09:46 Renal disorder due to type 2 diabetes mellitus 681636648 He lost weight and decreased carbs and was able to get his A1C from 7.8 to 6.8. He is not on any meds. He will continue to work on decreasing this number. Hypercholesterolemia 51471513 unable to restart statin because of increased LFT's. He has a GI appointmen t scheduled for February. We will get an U/S of his liver before that appointmen t. Essential hypertension 20276947 on meds and under good control Chronic ki dney disease stage 1 728546881 Administra tion of pneumococcal vaccine 71283134 Liver func tion tests outside reference range 624030302 we stopped his statin but his LFT's did not improve. He is not having any symptoms. He has an appointmen t with Dr Castellon for February. [id number] Donovan Bey MD Main Office [address] [place] [address] 09/04/2015 14:18:21 09/04/2015 15:35:54 Adult health examination 770583005 Z00.00 He is UTD with colonoscop y and with his immunizati ons. Needs infl uenza immunization 027735703 Z23 Renal diso rder due to type 2 diabetes mellitus 337423307 E11.29 He's been following his sugars and many lately have been running around 200. His A1C in the office is 9.3. We will restart his diabetes meds. Essential hypertension 66023832 I10 on meds and under good control Liver func tion tests outside reference range 334773343 R94.5 He is still followed by Dr Castellon and has been off his statins with no change in LFT's. [id number] Donovan Bey MD Main Office [address] [facility] [address] [place] [address] 09/30/2015 15:13:22 10/01/2015 16:47:55 Renal disorder due to type 2 diabetes mellitus 482549393 E11.29 Total time spent teaching and coordinati ng care 35 minutes. Basic pathophys. of type II DM was reviewed. Pt. was advised to test glucose TID rotating premeal and 2 hrpc on every other day basis. Continue Metformin at current dose. 1999 ADA diet was reviewed. Menus provided. Pt. is advised to walk daily as tolerated . Labs: BMP and microalbum in for next visit. Current recommenda tions on diabetic foot and eye care were reviewed. Pt. will return with glucose log in 4 weeks. Chronic ki dney disease stage 1 368792196 N18.1 [id number] Tim Durham MD Main Office [address] [place] [address] [place] [place] [address] 11/08/2015 13:55:56 11/08/2015 15:07:54 Renal disorder due to type 2 diabetes mellitus 199039082 E11.29 Uncontroll ed type II DM with microalbum inuria. Pt. is doing better with diet and exercise. HGA1c today is at 6.6% , at goal. Pt. was advised to continue Metformin at 1000 g BID. Continue diet and exercise. Schedule ferdinand with eye doctor for diabetic eye exam. Microalbuminuria 6834418 06 R80.9 Recheck in November. Hypokalemia 36813308 E87 .6 Continue BP meds and Potassium supplement s. [id number] Donovan Bey MD Main Office [address] [facility] [address] [place] [address] 12/05/2015 15:20:01 12/05/2015 15:57:29 Type 2 diabetes mellitus 04898741 E11.9 excellent control; he will continue with current mgmt and we will recheck in 3 months. Hypercholesterolemia 136 83773 E78[address] Castellon and we decided that it would be OK for him to go back on a statin and we will monitor his LFT's. Essential hypertension 16614528 I10 on meds and under good control Hyperplasi a of prostate 606339450 N40.0 [id number] Donovan Bey MD Main Office [address] [address] 04/20/2016 12:56:08 04/20/2016 13:42:26 Type 2 diabetes mellitus 14210433 E11.9 Stable diabetes. Continue Metformin 1000 mg BID daily . Lower total calories and increase exercise activity to daily 30-40 minute walks. Repeat labs prior to next visit including lipids. Renal diso rder due to type 2 diabetes mellitus 912150828 E11.29 [id number] Donovan Bey MD Main Office [address] [address] 08/04/2016 14:20:48 08/04/2016 15:44:46 Type 2 diabetes mellitus 29419327 E11.9 Stable diabetes. Continue Metformin 1000 mg BID daily . Diet and exercise are inadequate . Lower total calories and increase exercise activity to daily 30-40 minute walks. Repeat labs prior to next visit including lipids. Influenza vaccine needed [id number] 106 Z23 Noncomplia nce with treatment 3829191 Z91.19 [id number] Mckenzie Britton [facility] Main Office [address] [address] 10/05/2016 12:52:09 10/05/2016 13:50:37 Adult health examination 774034290 Z00.00 He is due for a colonoscop y and will call Dr Acosta for an appointmen t. He is UTD with immunizati ons. We discussed PSA and there is no indication for this. Hyperlipidemia 17682266 E78.5 His triglyceri gerald are running high. We will look to increase his atorvastat in. Renal diso rder due to type 2 diabetes mellitus 929097506 E11.22 He has not always been taking metformin twice a day but will try to do this now. He has been having some loose stools but is not taking meds with food. He will start doing this. He will f/u with Ciera for his diabetes. Chronic lennox dney disease stage 1 097839650 N18.1 We will follow his urine micro yearly and his creatinine at least twice a year. Body mass index 30+ - obesity 814124224 Z68.34 Encouraged to lose weight. Hypertensi ve renal disease 10494186 I12.9 on meds and under good control [id number] Donovan Bey MD Main Office [address] [address] 05/10/2017 12:39:26 05/10/2017 13:30:02 Renal disorder due to type 2 diabetes mellitus 232244113 E11.22 He has not always been taking metformin twice a day but will try to do this now. He will f/u with Ciera for his diabetes. Chronic lennox dney disease stage 1 931659707 N18.1 We will follow his urine micro yearly and his creatinine at least twice a year. Lesion of skin of face 2300639279 06 L98.9 [id number] Donovan Bey MD Main Office [address] [address] 08/03/2017 12:45:30 08/03/2017 13:56:30 Renal disorder due to type 2 diabetes mellitus 991157290 E11.22 Cont metformin as directed. A1c is at goal. Pt. is advised to increase his effort of loosing weight via exercise and low jonathan diet. Test glucose once per day. Return in 3 m. Chronic lennox dney disease stage 1 517363729 N18.1 Body mass index 30+ - obesity 645422581 Z68.33 Mixed hyperlipidemia 267 442857 E78.2 repeat fasting lipids Hypokalemia 81578831 E87 .6 Continue BP meds and Potassium supplement s. Needs infl uenza immunization 975624900 Z23 Sinus bradycardia 836083 05 R00.1 [id number] Sebastian Mckeon MD Main Office [address] [address] 08/28/2017 10:51:03 08/28/2017 12:46:59 Tick bite 42895546 S10.16XA [id number] Donovan Bey MD Main Office [address] [address] 12/20/2017 14:23:05 12/20/2017 15:18:06 Renal disorder due to type 2 diabetes mellitus 688909264 E11.22 Continue Metfromin 1000 mg BID. Add Farxiga at 10 mg daily. Possible side effects reviewed. Test glucose 2-3 times daily and return in 6 weeks with glucose log. Repeat BMP before the visit. PT. is advised to take his Potassium supplement s daily and increase fluid intake. Body mass index 30+ - obesity 747717393 E66.9 Z68.35 Z68.32 Chronic ki dney disease stage 1 599883513 N18.1 Stable BP. [id number] Donovan Bey MD Main Office [address] [place] [address] 02/23/2018 14:06:57 02/23/2018 15:19:46 Adult health examination 788127078 Z00.00 He is due for a colonoscop y and will call Dr Castellon for an appointmen t. We discussed PSA and there is no indication for this. He was followed by urology for BPH but has been stable on meds.. He was encouraged to make a diabetic eye appointmen t. Essential hypertension 07279830 I10 on meds and under good control Administra tion of pneumococcal vaccine 09665457 Z23 Obesity 827359438 E66.9 Body mass index 30+ - obesity 943330827 Z68.32 Encouraged to lose weight. [id number] Sebastian Mckeon MD Main Office [address] [place] [address] 05/27/2018 10:51:16 05/27/2018 12:08:03 Renal disorder due to type 2 diabetes mellitus 321373543 E11.22 WEll controlled type II DM. Lower Glipizide ER to 2.5 mg daily to avoid random hypoglycem ia. Continue diabetic diet and exercise. F/u in 4 m. Chronic ki dney disease stage 1 935019091 N18.1 Stable BP. Repeat microalbum in at next visit. Tick bite 50427134 W57.X XXA Body mass index 30+ - obesity 387165485 E66.9 Z68.33 Continue trying to lower total calories and increase exercise activity. [id number] Ciera Salazar PA-C Main Office [address] [place] [address] [place] [address] 12/09/2018 12:51:54 12/09/2018 14:21:18 Renal disorder due to type 2 diabetes mellitus 248380745 E11.22 Continue Glipizide ER 5 mg daily. Add Farxiga at 10 mg daily. POssible side effects reviewed. Labs to be repeated in 3 weeks. F/u in 6 weeks. CGM with [employer] apply and will be reviewed in 2-4 weeks. Pt. is advised to lower total calories. Chronic ki dney disease stage 1 398504036 N18.1 Stable BP. Repeat microalbum in at next visit. Body mass index 30+ - obesity 296903133 E66.9 Z68.33 Continue trying to lower total calories and increase exercise activity. Essential hypertension 49909366 I10 BP well controlled . Continue meds as prescribed . [id number] Ciera Salazar PA-C Main Office [address] [place] [address] [place] [address] 02/13/2019 15:54:46 02/13/2019 16:42:27 Renal disorder due to type 2 diabetes mellitus 391185943 E11.22 Much improved diabetic control. Continue both antidiabet ics and retest BMP. Pt. has CGM at home and will retry using it. F/u 4 m. Chronic ki dney disease stage 2 799694675 N18.2 repeat labs. increase hydration Hypokalemia 00207085 E87 .6 Continue BP meds and Potassium supplement s. [id number] Donovan Bey MD Main Office [address] [place] [address] [place] [address] 03/17/2019 10:46:24 03/17/2019 11:47:13 Adult health examination 118499991 Z00.00 He is due for a colonoscop y and will call Dr Castellon for an appointmen t. We discussed PSA and will check his level given his symptoms of nocturia. He was followed by urology in the past. Requires a tetanus booster 001412996 Z23 Screening for malignant neoplasm of colon 991837012 Z12.11 [id number] Ciera Salazar PA-C Main Office [address] [place] [address] [place] [address] 07/28/2019 13:31:10 07/28/2019 14:19:31 Renal disorder due to type 2 diabetes mellitus 343999873 E11.22 Stable diabetic control on current med. regiment. Pt. was encouraged to test glucose daily. F/u 3-4 m. Chronic ki dney disease stage 2 962904575 N18.2 Continue ACEI, increase hydration. Repeat labs and mmicroalbu min prior to next visit. Body mass index 30+ - obesity 980969998 E66.9 Z68.32 Continue trying to lower total calories and increase exercise activity. [id number] Donovan Bey MD Main Office [address] [address] 09/19/2019 12:32:36 09/19/2019 13:23:51 Essential hypertension 80732659 I10 on meds and under good control Influenza vaccine needed 6678901773 106 Z23 Mixed hyperlipidemia 267 176764 E78.2 Benign pro static hyperplasia with outflow obstruction 049950986 N40.1 Was on meds in the past which helped and would like to start again. Trochanter ic bursitis of left hip 4532309201 12038 M70.62 getting a cortisone injection at [facility] next week. [id number] ALVA Owens Main Office [address] [address] 01/26/2020 12:59:19 01/26/2020 13:45:51 Sore throat 060193285 J02.9 tylenol as needed, hydration, rest Exposure t o SARS-CoV-2 192911329 Z20.828 coworker tested positive, he has sore throat and headache, no cough, no SOB. Lack of testing availabili ty, but instructed to assume he has it and quarantine for 14 days. should he develop cough, SOB, high fever, chest pain other concerning , life threatenin g sx go to ED. [id number] Ciera Salazar PA-C Main Office [address] [address] 02/19/2020 13:16:44 02/19/2020 14:58:05 Renal disorder due to type 2 diabetes mellitus 952962159 E11.22 Stable diabetic control on current med. regiment.R epeat labs as discussed. Schedule diabetic eye exam for the summer F/u 4 m. Chronic ki dney disease stage 2 401908071 N18.2 Continue ACEI.repea t microalbum in. Hyperlipidemia 06201529 E78.5 [id number] Ciera Salazar PA-C [facility] [address] [facility] [address] [place] [address] 06/19/2020 13:04:48 06/20/2020 15:19:08 Renal disorder due to type 2 diabetes mellitus 750282421 E11.22 Repeat all labs fasting prior to physical. Continue current meds and glucose testing at . Diabetic eye exam as scheduled F/u 4 m. Chronic ki dney disease stage 2 804057618 N18.2 Continue ACEI. repeat microalbum in. Mixed hyperlipidemia 267 537836 E78.2 repeat fasting lipids Hyperplasi a of prostate 000198914 N40.0 [id number] Donovan Bey MD Main Office [address] [facility] [address] [place] [place] [address] 08/07/2020 14:31:57 08/07/2020 15:32:20 Adult health examination 489201212 Z00.00 He is due for a colonoscop y and will call Dr Castellon for an appointmen t. We will update his immunizati ons today. Influenza vaccine needed 2215538442 106 Z23 Administra tion of pneumococcal vaccine 83508059 Z23 Benign pro static hyperplasia with outflow obstruction 592813322 N40.1 On tamsulosin which helps. PSA is normal. Chronic ki dney disease stage 2 932846004 N18.2 Concentrat e on diabetes and HTN control. Essential hypertension 44545731 I10 on meds and under good control Renal diso rder due to type 2 diabetes mellitus 755547925 E11.22 Followed by Ciera. Last A1C 7.1. [id number] Ciera Salazar PA-C Main Office [address] [facility] [address] [place] [address] 11/08/2020 14:18:10 11/08/2020 14:58:15 Renal disorder due to type 2 diabetes mellitus 421920649 E11.22 Slight increase in A1c. PT. is advised to lower tota calories and increase exercise activity. Continue current meds. Repeat BMP today. F/u 3 m. Chronic ki dney disease stage 2 683213325 N18.2 Continue ACEI. repeat microalbum in. [id number] Bella Saunders Main Office [address] [facility] [address] [place] [address] 02/05/2021 12:39:15 02/05/2021 13:22:31 Benign prostatic hyperplasia with outflow obstruction 525961675 N40.1 On tamsulosin which helps with flow but not with frequency. Recommende d that he increase his tamsulosin to 2 tablets daily. PSA is normal. Chronic ki dney disease stage 2 079318047 N18.2 Concentrat e on diabetes and HTN control. Mixed hyperlipidemia 267 356109 E78.2 At goal with current mgmt. Renal diso rder due to type 2 diabetes mellitus 166623871 E11.22 Followed by Ciera. A1C has been increasing . Hypertensi ve renal disease 43485032 I12.9 on meds and under good control. He wanted to stop his atenolol chlorthali done because of increased urinary frequency. Will stop and stat metoprolol and follow his BP at home. We can increase his lisinopril if his BP goes up. [id number] Ciera Salazar PA-C Main Office [address] [facility] [address] [place] [address] 03/19/2021 13:24:27 03/19/2021 14:23:13 Renal disorder due to type 2 diabetes mellitus 245984837 E11.22 A1C is well controlled on current regimen Will hold glipizide and monitor blood sugar. Will recheck in in 3 months, if A1C increases above 7.0% will add GLP-1 Body mass index 30+ - obesity 340247210 E66.9 Z68.33 Continue trying to lower total calories and increase exercise activity. Chronic ki dney disease stage 2 875411799 N18.2 Continue ACEI. repeat microalbum in. [id number] Ciera Salazar PA-C Main Office [address] [facility] [address] [place] [address] 06/18/2021 12:56:46 06/18/2021 13:32:50 Renal disorder due to type 2 diabetes mellitus 117066005 E11.22 A1C is well controlled on current regimen. Discussed starting exercise activity at least 3-4 times weekly and continuing low calorie diet. Repeat microalbum in and BMP. F/u 4 m. Chronic ki dney disease stage 2 971396715 N18.2 d/c lisinopril due to cough. Continue SGLT 2 for renal protection . Hypertensi ve renal disease 45623063 I12.9 Stable BP on metoprolol . [id number] Donovan Bey MD Main Office [address] [facility] [address] [facility] [place] [address] 08/12/2021 12:48:50 08/12/2021 13:49:42 Adult health examination 887951848 Z00.00 He is due for a colonoscop y and will call Dr Castellon for an appointmen t. We will update his immunizati ons today. Influenza vaccine needed 8524002002 106 Z23 Screening for malignant neoplasm of colon 531210465 Z12.11 Benign pro static hyperplasia with outflow obstruction 249889408 N40.1 On tamsulosin which helps with flow but not with frequency. PSA is normal. Will add proscar and see him back in a few months. Chronic ki dney disease stage 2 995989795 N18.2 Concentrat e on diabetes and HTN control. Hypertensi ve renal disease 49516176 I12.9 on meds and under good control. Mixed hyperlipidemia 267 238515 E78.2 At goal with current mgmt. Trochanter ic bursitis of left hip 7479084021 57347 M70.62 getting a cortisone injection at [facility] next month. Renal diso rder due to type 2 diabetes mellitus 680194741 E11.22 Followed by Ciera. A1C has been under good control. [id number] Donovan Bey MD Main Office [address] [facility] [address] [facility] [place] [address] 11/13/2021 11:26:44 11/13/2021 11:57:47 Benign prostatic hyperplasia with outflow obstruction 936174743 N40.1 Taking both finasterid e and tamsulosin and his symptoms have improved. Hypertensi ve renal disease 97348130 I12.9 on meds and under good control. Chronic ki dney disease stage 2 361776113 N18.2 Concentrat e on diabetes and HTN control. Renal diso rder due to type 2 diabetes mellitus 959388250 E11.22 Followed by Ciera. A1C has been under good control. [id number] Sebastian [facility] [address] [place] [address] [facility] [place] [address] 01/09/2022 08:16:09 01/09/2022 15:05:55 Pain of bilateral hands 4329190065 [id number] M79.641 M79.642 [id number] Donovan Bey MD Main Office [address] [place] [address] 02/26/2022 10:36:06 02/26/2022 11:31:30 Hypertensive renal disease 24459785 I12.9 on meds and under good control. Benign pro static hyperplasia with outflow obstruction 815331226 N40.1 Taking both finasterid e and tamsulosin and his symptoms have improved. Followed by urology. Chronic ki dney disease stage 2 152950244 N18.2 Concentrat e on diabetes and HTN control. Renal diso rder due to type 2 diabetes mellitus 713124927 E11.22 Followed by Ciera. A1C has been under good control. [id number] Ciera Salazar PA-C Main Office [address] [place] [address] 03/20/2022 14:54:26 03/20/2022 16:06:09 Renal disorder due to type 2 diabetes mellitus 198755894 E11.22 A1C today is 6.9%. Recommend continuing exercise regimen and stay on low carb/low calorie diet. WE will try GLP-1 Ozempic at 0.25 mg weekly for 4 weeks and after 0.5 mg weekly for 4 weeks. Continue Farxiga. Plan to increase to 1 mg on Ozempic aaf tolerated well in 2 m.Repeat microalbum in and CMP. Chronic ki dney disease stage 2 780304149 N18.2 Continue SGLT 2 for renal protection . Mixed hyperlipidemia 267 689533 E78.2 repeat fasting lipids Hypertensi ve renal disease 45053363 I12.9 Stable BP on metoprolol . Pt encouraged home BP monitoring once or twice weekly, keep log and notify us of any range above 140/90. [id number] Ciera Salazar PA-C Main Office [address] [address] 05/29/2022 14:15:48 05/29/2022 15:10:50 Renal disorder due to type 2 diabetes mellitus 902234310 E11.22 A1C today is 6.9%. Recommend continuing exercise regimen and stay on low carb/low calorie diet. WE will continue Farxiga 10 mg and consider starting Trulicity in 3 m if weight remains unchanged or minimally down. Repeat microalbum in and BMP in 2-3 m. Chronic ki dney disease stage 2 440698016 N18.2 Continue SGLT 2 for renal protection . Microalbuminuria 4679548 06 R80.9 Liver func tion tests outside reference range 537632177 R94.5 secondary to ALLEN. Pt. saw GI at [place] and had ultrasound of liver recently. We will obtain results of work up./ PT. is advised to avoid ETOH and tylenol. [id number] Ciera Salazar PA-C Main Office [address] [address] 09/25/2022 14:10:32 09/25/2022 14:51:33 Renal disorder due to type 2 diabetes mellitus 376421668 E11.22 A1C today is 6.8%. Recommend continuing exercise regimen and stay on low carb/low calorie diet. WE will continue Farxiga 10 mg repeat nonfasting labs after holidays. Chronic ki dney disease stage 2 932501127 N18.2 Continue SGLT 2 for renal protection . Influenza vaccine needed 0408796241 106 Z23 Microalbuminuria 6824956 06 R80.9 continue ARB. [id number] Donovan Bey MD Main Office [address] [address] 01/26/2023 13:57:25 01/26/2023 15:21:23 Adult health examination 808649544 Z00.00 He had a colonoscop y by Dr Castellon in 2021 and is due again in 2031. He had one shingles vaccine and will return to the pharmacy for a second one. Advance care planning 71 7285699 Z71.89 Forms were given which he will complete and return. Hypertensi ve renal disease 24722243 I12.9 on meds and under good control. Chronic ki dney disease stage 2 286013426 N18.2 Concentrat e on diabetes and HTN control. Benign pro static hyperplasia with outflow obstruction 954729615 N40.1 Taking both finasterid e and tamsulosin and his symptoms have improved. Followed by urology in the past but now meds are prescribed here. Renal diso rder due to type 2 diabetes mellitus 101018700 E11.22 Followed by Ciera. A1C has been under good control. Hyperlipidemia 99289676 E78.5 C/w atorvastat in. [id number] Ciera Salazar PA-C Main Office [address] [facility] [address] [place] [address] 03/23/2023 15:52:47 03/23/2023 16:24:34 Renal disorder due to type 2 diabetes mellitus 534025303 E11.22 A1C today is a bit above norm likely due to steroid injection and shoulder surgery. PT. reports blood sugars are back down now. Continue Farxiga 10 mg f/u 3 m. repeat diabetic eye exam. Microalbuminuria 5350665 06 R80.9 continue ARB and Farxiga. repeat microalbum in after next visit. Chronic dney disease stage 1 892329260 N18.1 stable [id number] Ciera Salazar PA-C Main Office [address] [facility] [address] [place] [address] 06/23/2023 15:23:15 06/23/2023 16:08:06 Renal disorder due to type 2 diabetes mellitus 301875675 E11.22 Repeat A1c and other labs and microalbum in. If A1c is under 7%, continue with just Farxiga 10 mg. F/u 3-4 m. Chronic ki dney disease stage 1 948891663 N18.1 stable on ARB and SGLT-2. Microalbuminuria 4637768 06 R80.9 continue ARB and Farxiga. repeat microalbum in [id number] Donovan Bey MD Main Office [address] [facility] [address] [place] [address] 07/28/2023 14:55:03 07/28/2023 15:36:48 Hypertensive renal disease 84855468 I12.9 on meds and under good control. Benign pro static hyperplasia with outflow obstruction 935531321 N40.1 Taking both finasterid e and tamsulosin and his symptoms have improved. Followed by urology in the past but now meds are prescribed here. We spoke about a referral back to urology to discuss options (?possible surgery) but he is currently not interested . Influenza vaccine needed 3158919916 106 Z23 Chronic ki dney disease stage 1 371040689 N18.1 We will follow his urine micro yearly and his creatinine at least twice a year. Renal diso rder due to type 2 diabetes mellitus 690143121 E11.22 Followed by Ciera. A1C has been under good control. [id number] Ciera Salazar PA-C Main Office [address] [facility] [address] [facility] [place] [address] 12/01/2023 13:56:41 12/01/2023 14:37:28 Renal disorder due to type 2 diabetes mellitus 363868059 E11.22 A1c is at goal, but weight is increasing . Pt. has h/o fatty liver and liver fibrosis. He will benefot from GLP-1 addition which will help weight loss. WE will add mounjaro 2.5 mg weekly for 4 weeks, then 5 mg weekly. Continue Farxiga 10 mg. repeat labs. F/u 3 m. Chronic ki dney disease stage 1 667530841 N18.1 stable on ARB and SGLT-2. repeat microalbum in. Hypertensi ve renal disease 20562213 I12.9 Stable BP on metoprolol . Pt encouraged home BP monitoring once or twice weekly, keep log and notify us of any range above 140/90. Microalbuminuria 0395978 06 R80.9 continue ARB and Farxiga. repeat microalbum in Body mass index 30+ - obesity 424287217 E66.9 Z68.31 Continue trying to lower total calories and increase exercise activity. Begin mounjaro which will help with fatty liver via weight loss. [id number] Donovan Bey MD Main Office [address] [facility] [address] [facility] [place] [address] 02/01/2024 13:26:11 02/01/2024 14:20:15 Adult health examination 805124535 Z00.00 He had a colonoscop y by Dr Castellon in 2021 and is due again in 2031. He had one shingles vaccine and will return to the pharmacy for a second one. Obstructiv e sleep apnea syndrome 04441125 G47.33 wears a CPAP Tanner's esophagus with esophagitis 565889932 K22.70 Followed by GI and had an EGD done about 9 months ago. On chronic PPI's. Benign pro static hyperplasia with outflow obstruction 298920815 N40.1 Taking both finasterid e and tamsulosin and his symptoms have improved. Followed by urology in the past but now meds are prescribed here. . Chronic ki dney disease stage 1 580516025 N18.1 We will follow his urine micro yearly and his creatinine at least twice a year. Hypertensi ve renal disease 04254161 I12.9 on meds and under good control. Mixed hyperlipidemia 267 013260 E78.2 At goal with current mgmt. Renal diso rder due to type 2 diabetes mellitus 755573353 E11.22 Followed by Ciera. A1C has been under good control. [id number] Ciera Salazar PA-C Main Office [address] [facility] [address] [facility] [place] [address] 03/01/2024 13:06:49 03/01/2024 13:54:21 Renal disorder due to type 2 diabetes mellitus 729959620 E11.22 Excellent diabetic control with the addition of MOunjaro. Pt. is on 5 mg dose and has no side effects. Lost total of 19 lbs since the start. Continues farxiga 10 mg. Labs reviewed with pt and all stable. Recom f/u in 4 m. Chronic ki dney disease stage 1 048090233 N18.1 stable on ARB and SGLT-2. Hypertensi ve renal disease 82239618 I12.9 Blood pressure runs low due to weight loss. We will reduce irbesartan to 150 mg 0.5 tabs daily. [id number] Ciera Salazar PA-C [facility] [address] [facility] [address] [facility] [place] [address] 06/19/2024 14:31:32 06/19/2024 15:59:51 Renal disorder due to type 2 diabetes mellitus 595578425 E11.22 Stable diabetic control with Mounjaro and Farxiga. Last A1c was over 3 m ago at 6.6%. Recommend to repeat A1c. WE will lower Farxiga to 5 mg daily and continue mounjaro 5 mg weekly. Pt. lost total of 23 lbs since start of mounjaro in November and has no side effects. F/u 4 Hypertensi ve renal disease [id number] I12.9 Blood pressure runs low due to weight loss. We will reduce irbesartan to 150 mg 0.5 tabs daily. Chronic ki dney disease stage 1 [id number] N18.1 stable on ARB and SGLT-2. Microalbuminuria [id number] 06 R80.9 continue ARB and Farxiga. we will lower farxiga to 5 mg daily. [id number] Donovan Bey MD Main Office [address] [facility] [address] [facility] [place] [address] 08/02/2024 12:34:30 08/02/2024 13:20:29 Hypertensive renal disease [id number] I12.9 on meds and under good control. He reduced his irbesartan from 150 to 75 mg and his BP is still on the low side. He does not have symptoms of low blood pressure so he will continue with the same dose and will monitor his BP. Chronic ki dney disease stage 1 [id number] N18.1 We will follow his urine micro yearly and his creatinine at least twice a year. Renal diso rder due to type 2 diabetes mellitus [id number] E11.22 Followed by Ciera. A1C has been under good control. Last A1C was normal at 5.4. This may in part be due to losing 18 lbs in the last 8 months. Influenza vaccine needed [id number] 106 Z23 65 YEARS AND OLDER Benign pro static hyperplasia with outflow obstruction [id number] N40.1 Taking both finasterid e and tamsulosin and his symptoms have improved. Followed by urology in the past but now meds are prescribed here. . [id number] Ciera Salazar PA-C Telehealt [facility] [address] [facility] [address] [facility] [place] [address] 10/16/2024 14:53:19 10/16/2024 16:08:17 Renal disorder due to type 2 diabetes mellitus [id number] E11.22 Stable diabetic control with Mounjaro and Farxiga on board. A1c is 5.5%. recommend to continue medication s, diabetic diet and exercise. Repeat cmp after holidays. F/u 3 m. Chronic ki dney disease stage 1 [id number] N18.1 stable on ARB and SGLT-2. Microalbuminuria [id number] 06 R80.9 continue ARB and Farxiga , repeat labs . Health Concerns Section Related Observation LastModified by Organization Detai ls LastModified Time None Recorded Concern Status LastModified by Organization Details LastModified Time None Recorded Advance Directives Directive N: Payers Encounter Date Sequence Insurance Name Policy Number Policy Guzmán Covered Member ID Guzmán Member ID Guarantor Name 02/01/2024 1 [place] [id number] Tony W Gladu [id number] Tony W Gladu 03/01/2024 1 [place] [id number] Tony W Gladu [id number] Tony W Gladu 06/19/2024 1 [place] [id number] Tony W Gladu [id number] Tony W Gladu 08/02/2024 1 [place] [id number] Tony W Gladu [id number] Tony W Gladu 10/16/2024 1 [place] [id number] Tony W Gladu [id number] Tony W Gladu Notes Date Note Type Note Provider Name and Address Organization Details Recorded Time 02/01/2024 text/html Generic HPI TemplateReported bypatient.Notes:He has been safe during the pandemic and is fully vaccinated until 2020. 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 Currently doing 40 hours a week.He pain around left ear for months ( at least 6). Has pain almost every day. Hearing is not affected. No pain with chewing and no dental pain. He has an ENT appointment.Surgery on left shoulder 1 year ago and currently no joint pains.Goes to [employer] once a week.UTD with immunizations including tetanus, flu, pneumonia and initial COVID with booster but none since.He had one shingles vaccine and is scheduled to get a second one.He is UTD with colonoscopy and not due again until 2031. Donovan Bey MD [address] [facility] [address], [place], [address], [facility] 02/01/2024 17:53:40 03/01/2024 text/html Diabetes F/URepo rted bypatient.Context:norm al range of home blood sugars (in the low 100s); seeing eye doctor regularly; checking feet regularly; not missing doses of medications; no side effects from medications;not taking aspirin daily Associated Symptoms:no dizziness; no sweats; no headaches; no confusion; no increased thirst; no increased appetite; no increased urination; no blurred vision; no numbness of feet; no calluses on feet;weight gain ( lbs);weight loss (8 lbs)Notes:A1c today is 5.3%. Weight is down 8 lbs. Meds: Farxiga 10 mg and Mounjaro 5 mg weekly.CKD stg 1 with mild microalbuminuria. Stable hypertension control. stable lipids. Weight is down 8 lbs since on Mounjaro.Fatty liver with liver fibrosis followed by the GI.BMI is 29.3 from 30.4. Labs are all stable.Hypertension F/UReported bypatient.Associated Symptoms:no dizziness; no lightheadedness; no chest pain; no shortness of breath; no palpitations; no edema; no calf pain with exertion Lifestyle:regular exercise; limiting/avoiding salt Medications:taking medications as directed; no side effects from medication Ciera Salazar PA-C [address] [address], [place], [address], [facility] 03/01/2024 14:05:57 06/19/2024 text/html Diabetes F/URepo rted bypatient.Context:norm al range of home blood sugars (in the low 100s); seeing eye doctor regularly; checking feet regularly; not missing doses of medications; no side effects from medications;not taking aspirin daily Associated Symptoms:no dizziness; no sweats; no headaches; no confusion; no increased thirst; no increased appetite; no increased urination; no blurred vision; no numbness of feet; no calluses on feet;weight gain ( lbs);weight loss (8 lbs)Notes:A1c was 5.3% in February. Weight is down 8 lbs. last visit and another 6 today. current bmi is 28. Meds: Farxiga 10 mg and Mounjaro 5 mg weekly. Mounjaro was started in November . Pt. lost 23 lbs since the initiation of therapy.CKD stg 1 with mild microalbuminuria. Stable hypertension control. stable lipids.Fatty liver with liver fibrosis followed by the GI. Hypertension F/UReported bypatient.Associated Symptoms:no dizziness; no lightheadedness; no chest pain; no shortness of breath; no palpitations; no edema; no calf pain with exertion Lifestyle:regular exercise; limiting/avoiding salt Medications:taking medications as directed; no side effects from medication Ciera Salazar PA-C [address], [address], [facility] 06/19/2024 15:18:20 08/02/2024 text/html Diabetes F/URepo rted bypatient.Notes:This has been under good control and he is followed by Ciera. His A1C has gone from 9 to 5.4 over the last few years.Hypertension F/UReported bypatient.Associated Symptoms:no dizziness; no lightheadedness; no chest pain; no shortness of breath; no palpitations; no edema; no calf pain with exertion Lifestyle:regular exercise; limiting/avoiding salt Medications:taking medications as directed; no side effects from medication His flow has improved since taking finasteride and tamsulosin. He is tolerating the meds well and is getting up less at night to urinate. Donovan Bey MD [address], [address], [facility] 08/02/2024 17:43:10 10/16/2024 text/html Diabetes F/URepo rted bypatient.Context:norm al range of home blood sugars (in the low 100s); seeing eye doctor regularly; checking feet regularly; not missing doses of medications; no side effects from medications;not taking aspirin daily Associated Symptoms:no dizziness; no sweats; no headaches; no confusion; no increased thirst; no increased appetite; no increased urination; no blurred vision; no numbness of feet; no calluses on feet;weight gain ( lbs);weight loss (8 lbs)Notes:Current A1c is 5.5%Meds: Farxiga 10 mg and Mounjaro 5 mg weekly. Mounjaro was started in November . Pt. lost 23 lbs since the initiation of therapy.CKD stg 1 with mild microalbuminuria. Stable hypertension control. stable lipids.Fatty liver with liver fibrosis followed by the GI. Ciera Salazar PA-C [address] [address], [place], [address], [facility] 10/16/2024 15:55:10
== END 2024-11-23 10:18 | disposition home or self-care (01) ==
LOC: HO.US 10:17
PROVIDERS: PCP Internal Medicine; Visit Provider Internal Medicine
DX: K76.0 Fatty (change of) liver, not elsewhere classified (principal); R74.8 Abnormal levels of other serum enzymes; K74.00 Hepatic fibrosis, unspecified
CPT/HCPCS: 76700; 76981

== ENCOUNTER → 2024-11-23 10:28 | Outpatient (BNV) | payer BC, SELFPAY | PROVIDERS: PCP Internal Medicine; Visit Provider Radiology Diagnostic Radiology | DX: K76.0 Fatty (change of) liver, not elsewhere classified (principal) | CPT/HCPCS: 76700 ==

== ENCOUNTER 2025-05-13 11:33 | Day surgery (SDC) | payer BC, SELFPAY ==
--- NOTE | ~2025-05-13 | XR_ITS ---
CLINICAL HISTORY: Food stuck, eval for FB 2 views soft tissue neck Comparison: None provided Findings No acute fractures or dislocation. Normal epiglottis. Prevertebral soft tissues within normal limits. No radiopaque foreign body. Heterogeneous carotid artery calcifications. Prominent thyroid cartilage calcifications. Ossifications in the nuchal ligament. IMPRESSION: 1. No radiopaque foreign body or airway compromise. 2. Index of suspicion will dictate the need for follow-up noncontrast CT neck and chest. This document has been electronically signed by: Lisa Mera DO on 05/13/2025 13:18:09
[2025-05-13 11:38] VITALS: BP 135/83; PULSE 66; RESP 16; TEMP 36.6; O2SAT 95; BMI 30.4
--- NOTE | 2025-05-13 11:43 | ED_ITS ---
HPI - General Adult General Chief complaint: General Medical Stated complaint: food stuck in throat Time Seen by Provider: 05/13/25 12:11 Source: patient and family (patient's ) Mode of arrival: ambulatory Limitations: no limitations History of Present Illness ED Provider: Dorcas Sanchez PA-C HPI narrative: Patient is a 74 year old assigned male at with a history of HTN, HLD, GE RD, and DM presenting to the emergency department today with a food bolus. Patient states that on 05/11/2025 he had a large piece of steak and ever since then he has felt something stuck in his epigastric area. Patient states that when he has a drink of water he throws it back up. Patient denies any dizziness, lightheadedness, abdominal pain, fever, chills, blurry vision, double vision, loss of vision, chest pain, difficulty breathing, shortness of breath, back pain, night sweats, pain with urination, increased urinary frequency, increased urinary urgency, blood in his urine or stool, syncope or a near syncopal episode, recent trauma or falls, bowel incontinence, bladder incontinence, or any other complaints at this time. Onset (ago): day(s) (2) Relieving factors: none Exacerbating factors: none Associated symptoms: nausea/vomiting (when he tries to ingest anything) Treatments prior to arrival: none Related Data Home Medications ?Medication ?Instructions ?Recorded ?Confirmed atorvastatin 40 mg tablet (Lipitor) 1 tab PO DAILY 05/13/25 dapagliflozin propanediol 10 mg 1 tab PO DAILY 2 05/13/25 tablet (Farxiga) finasteride 5 mg tablet (Proscar) 1 tab PO DAILY 03/2005/13/25 tamsulosin 0.4 mg capsule (Flomax) 1 cap PO DAILY 02/2305/13/25 irbesartan 150 mg tablet (Avapro) 150 mg PO DAILY 03/2605/13/25 omeprazole 20 mg capsule,delayed 20 mg PO DAILY 05/13/25 release ursodiol 500 mg tablet 1,000 mg PO BID 04/19/23 Mounjaro 5 05/13/25 Previous Rx's ?Medication ?Instructions ?Recorded lansoprazole 30 mg capsule,delayed 30 mg PO DAILY #60 caps 05/13/25 release Allergies Allergy/AdvReac Type Severity Reaction Status Date / Time No Known Allergies Allergy Verified 05/13/25 11:42 Review of Systems Constitutional: Constitutional: Reports no additional constitutional complaints, Denies chills, Denies fever(s) and Denies night sweats Eyes: Eyes: Reports no additional eye complaints, Denies blurry vision, Denies change in vision, Denies diplopia, Denies eye discharge, Denies loss of vision and Denies eye pain ENT: Denies dizziness Cardiovascular: Cardiovascular: Reports no additional cardiovascular complaints, Denies chest pain, Denies lightheadedness, Denies Loss of Consciousness and Denies dyspnea Respiratory: Respiratory: Reports no additional respiratory complaints and Denies dyspnea Gastrointestinal: Gastrointestinal: Reports no additional gastrointestinal complaints, Denies abdominal pain, Denies melena, Denies hematochezia, Denies change in bowel habits and Denies change in stool character Comments: Vomiting with attempted ingestion Food bolus Genitourinary: Genitourinary: Reports no additional male genitourinary complaints, Denies hematuria, Denies oliguria, Denies difficulty urinating, Denies dysuria, Denies urinary frequency, Denies urinary hesitancy, Denies urinary incontinence and Denies urinary urgency Musculoskeletal: Musculoskeletal: Reports no additional musculoskeletal complaints, Denies numbness and Denies tingling Neurologic: Denies dizziness, Denies loss of vision, Denies numbness and Denies tingling Psychiatric: Psychiatric: Reports no additional psychiatric complaints Endocrine: Endocrine: Reports no additional endocrine complaints Hematologic/Lymphatic: Hematologic/Lymphatic: Reports no additional hematologic/lymphatic complaints Allergic/Immunologic: Allergic/Immunologic: Reports no additional allergic/immunologic complaints [facility] Past Medical History Attestation statement: The following information was validated with the patient. (all information validated with the patient's ) Source: old records reviewed, obtained from family (patient's provided additional history and confirmed the history provided by the patient) and nursing notes reviewed Medical History Sleep apnea with use of continuous positive airway pressure (CPAP) Diabetes Elevated cholesterol Fatty liver Small bowel obstruction GERD (gastroesophageal reflux disease) HTN (hypertension) Surgical History Hx of right inguinal hernia repair Hx of umbilical hernia repair Hx of nasal septoplasty Hx of repair of right rotator cuff History of esophagogastroduodenoscopy (EGD) H/O colonoscopy Social History Social History Household Members: Spouse Patient Tobacco Use Status: Never used Tobacco Smoked in Last 30 Days: No Advance Directives: Yes Advance Directives Information Provided: No Advance Directives on File: No Physical Exam ED Vital Signs: Vital Signs - 24 hr 05/13/25 11:38 05/13/25 13:09 05/13/25 14:17 Temperature 97.9 F 97.8 F Pulse Rate 66 60 65 Respiratory Rate 16 16 Blood Pressure 135/83 142/80 H 138/82 Pulse Oximetry 95 97 Oxygen Delivery Method Room Air Room Air BMI result Body Mass Index 30.4 Const General: cooperative, no acute distress, alert and awake Nutritional Appearance: well nourished Orientation/consciousness: patient oriented x3 HENMT Head: Yes normal to inspection and Yes atraumatic Ears: hearing grossly normal bilaterally and external ears normal General nose exam: Normal external nose present, no nasal discharge noted and no epistaxis Face and sinus: Yes normal facial exam, No abrasion and No laceration Mouth: Normal oral and palatal mucosa present, no drooling and no muffled voice Eyes General: appearance normal, both eyes and all related structures Periorbital: periorbital findings normal Eyelids: Yes eyelids normal Conjunctivae: conjunctivae normal Pupils: Equal, round and reactive pupils present EOM: EOMs intact bilaterally Neck Neck: Yes normal visual inspection, Yes full ROM and Yes no lymphadenopathy Resp Effort & Inspection: normal respiratory effort and able to speak in complete sentences Neuro General: patient oriented x3, moves all extremities and CN's II-XI intact bilaterally Cranial nerves: Yes Equal, round and reactive pupils present Cognition (Neuro): normal cognition Extrem General: Yes normal to inspection, Yes full ROM and Yes capillary refill normal Psych Appearance: grossly normal Mental Status: mental status grossly normal Affect: normal affect Attitude: cooperative Thought process: Normal thought process present Thought content: Normal thought content present Insight: Good insight present (Psych) Course Course Course Narrative: Camryn Henderson HEALTH SERVICES COORDINATOR 05/13 1143 This is a rapid medical exam. Deferred additional HPI, ROS, PE to primary provid er. 74 yo male with PMH of DM, HTN, HLD, BPH, GERD, esophageal stricture here with concern for FB (steak) stuck for 36 hrs. Will obtain x-ray. VSS Medications Administered Discontinued Medications Generic Name Dose Route Start Last Admin Trade Name Freq PRN Reason Stop Dose Admin Glucagon 1 mg 05/13/25 12:12 05/13/25 12:55 Glucagon Hcl 1 Mg Vial IM 05/13/25 12:13 Not Given ONCE ONE Glucagon 1 mg 05/13/25 12:41 05/13/25 12:42 Glucagon Hcl 1 Mg Vial IVPUSH 05/13/25 12:42 1 mg ONCE ONE Administration Nitroglycerin 0.4 mg 05/13/25 13:03 05/13/25 13:09 Nitroglycerin 0.4 Mg Tab.Subl SUBLINGUAL 05/13/25 13:04 0.4 1000units ONCE ONE Administration Medical Decision Making Medical Decision Making MDM Narrative: Patient is a 74 year old assigned male at with a history of HTN, HLD, GERD, and DM presenting to the emergency department today with a food bolus. Patient's physical exam was showed an individual able to tolerate secretions but not able to drink water as he would immediately vomit. Patient's soft tissue neck x-ray, ordered by the provider in triage, showed no acute process. I explained my physical exam findings as well as all test results to the patient and the patient's . I answered all questions asked by the patient and the patient's . Patient was given IV glucagon and after a few minutes - attempted and failed to tolerate water PO. Patient was given nitroglycerin dissolved in water and after a few minutes - attempted and failed to tolerate water by PO. I spoke with the GI specialist director of corporate responsibility, Dr. Oliveros, who recommended taking the patient for an emergent EGD. Patient and the patient's verbalized agreement and understanding with this treatment plan and to have an emergent EGD by Dr. Oliveros. Differential Diagnosis Differential Diagnoses: The differential diagnosis associated with the presentation includes Food impaction Food bolus Admission/Observation Consideration of admission/observation: Escalation of care including admission/observation considered Patient to the OR with Dr. Oliveros. Consult Healthcare Provider Management of the patient was discussed with: Continuous Dryout Operator Helper (Spoke with Dr. Oliveros as noted in the MDM Rationale portion of this note. ) Independent Interpretation I performed an independent interpretation of an: Plain X-Ray Interpretation: My interpretation is in agreement with the radiologist's impression of this imaging study. CLINICAL HISTORY: Food stuck, eval for FB 2 views soft tissue neck Comparison: None provided Findings No acute fractures or dislocation. Normal epiglottis. Prevertebral soft tissues within normal limits. No radiopaque foreign body. Heterogeneous carotid artery calcifications. Prominent thyroid cartilage calcifications. Ossifications in the nuchal ligament. IMPRESSION: 1. No radiopaque foreign body or airway compromise. 2. Index of suspicion will dictate the need for follow-up noncontrast CT neck and chest. This document has been electronically signed by: Lisa Mera DO on 05/13/2025 13:18:09 Dictated By: Lisa Mera MD Signed By: Electronically signed by Lisa Mera MD 05/13/25 0053 Radiology Impression Discussion of test interpretation with radiology: I have reviewed the radiologi st's reading. Independent Historian Clinical information obtained from an independent historian. History obtained from or confirmed by: Spouse (patient's provided additional history and confirmed the history provided by the patient. ) Critical Care Time Critical Care Time Critical Care Time: Yes Total Critical Care Time: 48 Attestation: I spent 48 minutes of Critical Care Time with this patient. This does not include time spent on separately reported billable procedures. Discharge Plan Discharge Clinical Impression: Food impaction of esophagus Patient Disposition: Xfer Other Transfer Details: To OR with Dr. Oliveros Discharge Date/Time: 05/13/25 14:57
--- OUTSIDE RECORDS SUMMARY | 2025-05-13 12:27 | XMS_ITS | Patient Health Record ---
Author Organization [facility] Address [address] [place] [address] Care Team Providers Care See Supervisor Name Role Phone Sotero MCFARLAND, Timothy Primary Care Provider Unav ailable Ghassan Navarro Unavailable [phone] Allergies No Known Allergies Results Component Value Reference Range Notes Complete Blood Count Auto Di ff Reviewed date:11/11/2024 07:35:42 PM Interpretation: Performing Lab:[facility], [address] [place] [phone] Notes/Report: White Blood Count 6.3 4.8-10.8 X10*3/uL [...] INR Reviewed date:11/11/2024 07:35:56 PM Interpretation: Performing Lab:[address] [phone] Notes/Report: Prothrombin Time 12.2 10.9-12.4 [employer] [...] mechanical prosthetic heart valves: 2.5 - 3.5 Liver Panel Reviewed date:12/17/2024 01:51:11 PM Interpretation: Performing Lab:[address] [phone] Notes/Report: Bilirubin Total 0.9 0.0-1.0 mg/dL Bilirubin Direct 0.3 0.0-0.5 mg/dL Aspartate Amino Transferase 27 5-37 U/L Alanine Aminotransferase 47 0-40 U/L Total Protein 7.7 6.5-8.0 g/dL Albumin Level 4.5 3.5-5.0 g/dL Alkaline Phosphatase 60 39-117 U/L Alpha Fetoprotein Reviewed date:11/17/2024 06:31:39 PM Interpretation: Performing Lab:[address] [phone] Notes/Report: Alpha Fetoprotein 3.0 <6.1 ng/mL This test was performed using the Alexi Byers chemiluminescent method. Values obtained from different assay methods cannot be used interchangeably. AFP levels, regardless of value, should not be interpreted as absolute evidence of the presence or absence of disease. THIS TEST WAS PERFORMED AT: [facility] [address] [place] [phone] NAKIA RAMACHANDRAN MD Liver Fibrosis Pnl Reviewed date:11/17/2024 06:31:59 PM Interpretation: Performing Lab:[facility], [address] [place] [phone] Notes/Report: Liver Fibrosis Score 0.64 Liver Fibrosis [...] a>0.62 and a<=1.00 : A3 (severe activity) JOJ-Udghm-9-Macroglobulin 289 106-279 mg/dL FIB-Haptoglobin 47 43-212 mg/dL FIB-Apolipoprotein A1 151 94-176 mg/dL FIB-Total Bilirubin 0.6 0.2-1.2 mg/dL FIB-GGT 19 3-70 U/L FIB-ALT 22 9-46 U/L Reference ID [id number] Footnote SEE NOTE The reliability of results [...] The performance characteristics have been determined by [facility]. It has not been cleared or approved by the U.S. Food and Drug Administration. Performance characteristics refer to the analytical performance of the test. Rezzie, the associated logo, [employer] and all associated [employer] douglas are the registered trademarks of [employer]. All third republican douglas - (R) and (TM) - are the property of their respective owners. (C) 0345-5615 [employer]. All rights reserved. THIS TEST WAS PERFORMED AT: [email or web address] [facility] [place] [address] [place] [address] REJI MANRIQUEZ MD,PHD,RICKEY US abdomen comp w elastograp hy Reviewed date:12/17/2024 01:54:51 PM Interpretation: Performing Lab: Notes/Report: [address] [address] Ultrasound Report Signed Patient: Tony Lopez MR#: [id number] : 1950 Acct:[id number] Age/Sex: 74 / M ADM Date: 11/23/24 Loc: HO.US Attending Dr: Ghassan Navarro MD Ordering Physician: Ghassan Navarro MD Date of Service: 11/23/24 Procedure(s): US abdomen comp w elastography Accession Number(s): [id number] cc: TIMOTHY FAIR MD; Ghassan Navarro MD [...] of Radiologists in Ultrasound Liver Stiffness Thresholds (2020): LIVER STIFFNESS THRESHOLDS: *Shear wave velocity less [...] by: Ghassan Meek MD 11/23/2024 12:10 PM [facility] [place] Dictated By: Ghassan Meek MD Signed By: <Electronically signed by Ghassan Meek MD in OV> 11/23/24 1210 DD/ 1028 TD/TT: 11/23/24 1056 Enamel Drier: Reason For Referral No Information Medications Medication SIG (Take, Route, Frequency, Duration) Notes [...] Once a day for 30 day(s) Active Immunizations Vaccine Route Administration Date Status Comme nts Influenza Unknown 09/09/2021 Administered Influenza Unknown 09/25/2022 Administered Influenza Unknown 05/09/2024 Administered Social History Alcohol Screen Question Answer Notes Did you have a drink containing alcohol in the p ast year? Yes Points 0 Interpretation Negative Section Notes: Nonsmoker; has a couple of d rinks every other day-usually wine Nonsmoker; one or 2 glasses of wine per day Nonsmoker; one or 2 glasses of wine per day Nonsmoker; one or 2 glasses of wine on Sat and Sun---none during the week Nonsmoker; one or 2 glasses of wine a few times a week Nonsmoker; one or 2 glasses of wine a few times a week Nonsmoker; one or 2 glasses of wine a few times a week Nonsmoker; one or 2 glasses of wine a few times a week Nonsmoker; one or 2 glasses of wine a few times a week Problems Problem Type SNOMED Code ICD Code Onset Dates Problem Status W/U Status Risk Notes Problem Gastro-esophageal reflux disease without esophagitis (089370254) Gastro-esophageal reflux disease without esophagitis (K21.9) Active confirmed Problem 456323153 Encounter for screening for malignant neoplasm of colon (Z12.11) Active confirmed Problem 024472532 History of adenomatous polyp of colon (Z86.010) Active confirmed Problem Screening for malignant neoplasm of rectum (540071494) Encounter for screening for malignant neoplasm of rectum (Z12.12) Active confirmed Problem Dysphagia (93084362) Dysphagia (R13.10) Active confirmed Problem 825767123 Elevated liver enzymes (R74.8) Active confirmed Problem 816463306 Fatty liver (K76.0) Active confirmed Problem Hiatal hernia (02447967) Hiatal hernia (K44.9) Active confirmed Problem 02934109 Erosive esophagitis (K22.10) Active confirmed Problem Gastritis (8700114) Gastritis (K29.70) Active confirmed Problem Ulcer of esophagus (98141652) 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 confirmed Problem Ulcer of esophagus (98720148) Esophagitis, erosive (K22.10) Active confirmed Problem Diverticulosis of colon (599921077) Diverticulosis of colon (K57.30) Active confirmed Problem Tanner's esophagus (999564968) 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) Active confirmed Problem 52538855 Liver fibrosis (K74.00) Active confirmed Problem 17454131 Esophageal dysphagia (R13.19) Active confirmed Problem Gastroesophageal reflux disease (disorder) (434908007) Chronic GERD (K21.9) Active confirmed Vital Signs Temperature 97.5 degrees Fahrenheit 11/01/2024 Blood pressure diastolic 00 mm Hg 11/01/2024 Height 70 in 11/01/2024 Blood pressure systolic 000 mm Hg 11/01/2024 Weight 205 lbs 11/01/2024 BMI 29.41 kg/m2 11/01/2024 Encounters Encounter Location Date Provider Diagnosis [facility] [address] [place] [phone] 11/01/2024 Ghassan Navarro Fatty liver K76.0 ; Elevated liver enzymes R74.8 ; Encounter for screening for malignant neoplasm of colon Z12.11 ; History of adenomatous polyp of colon Z86.010 ; Liver fibrosis K74.00 and Tanner''s esophagus without dysplasia K22.70 [facility] [address] [place] [phone] 06/30/2024 Ghassan Navarro Fatty liver K76.0 [facility] [address] [place] [phone] 09/25/2024 Ghassan Navarro [facility] [address] [place] [phone] 12/17/2024 Ghassan Navarro [facility] [address] [place] [phone] 01/16/2025 Ghassan Navarro Assessments Encounter Date Diagnosis (ICD Code) Assessment Notes Treatment Notes Treatment Clinical Notes Section Notes 11/01/2024 Elevated liver enzymes (ICD-10 - R74.8) Overall, Tony appears quite well. We did review that his recent weight loss will be quite beneficial to his overall general health, and particularly in regard to his underlying diabetes, fatty liver, and reflux. Hopefully this trend will continue for him. I did encourage him to continue a healthy diet and to avoid, or at least minimize alcohol intake. I did advise him to continue the current regimen of the ursodiol at 1.5 g daily for the underlying fatty liver. We did review his laboratory studies from just about a year ago which were quite encouraging and I shall repeat his laboratories along with a followup abdominal ultrasound. We did review the endoscopy findings from September of 2023 in regard to the healing of the previous esophagitis and esophageal ulcer. We did review the finding of his Tanner's esophagus and the need for a followup upper endoscopy in 2026 when he has his next screening colonoscopy. We did review the theoretical increased risk of esophageal cancer in patients with Atnner's esophagus. He'll continue his current regimen of the omeprazole 40 mg b.i.d. as it does seem that when he went down to a lower dose his esophagitis and esophageal ulcer proved refractory to healing. If things remain stable I will plan to see him in one year for a followup visit in regard to the underlying fatty liver. I did advise him to certainly call prior to that if he has any problems or questions I can be of assistance with. Tony was comfortable with this plan. Thank you again for allowing me to participate in Tony's care. I shall continue to keep you advised of his progress. 11/01/2024 Fatty liver (ICD-10 - K76.0) Overall, Tony appears quite well. We did review that his recent weight loss will be quite beneficial to his overall general health, and particularly in regard to his underlying diabetes, fatty liver, and reflux. Hopefully this trend will continue for him. I did encourage him to continue a healthy diet and to avoid, or at least minimize alcohol intake. I did advise him to continue the current regimen of the ursodiol at 1.5 g daily for the underlying fatty liver. We did review his laboratory studies from just about a year ago which were quite encouraging and I shall repeat his laboratories along with a followup abdominal ultrasound. We did review the endoscopy findings from September of 2023 in regard to the healing of the previous esophagitis and esophageal ulcer. We did review the finding of his Tanner's esophagus and the need for a followup upper endoscopy in 2026 when he has his next screening colonoscopy. We did review the theoretical increased risk of esophageal cancer in patients with Tanner's esophagus. He'll continue his current regimen of the omeprazole 40 mg b.i.d. as it does seem that when he went down to a lower dose his esophagitis and esophageal ulcer proved refractory to healing. If things remain stable I will plan to see him in one year for a followup visit in regard to the underlying fatty liver. I did advise him to certainly call prior to that if he has any problems or questions I can be of assistance with. Tony was comfortable with this plan. Thank you again for allowing me to participate in Tony's care. I shall continue to keep you advised of his progress. 06/30/2024 Fatty liver (ICD-10 - K76.0) 11/01/2024 Encounter for screening for malignant neoplasm of colon (ICD-10 - Z12.11) Repeat colonoscopy and upper endoscopy in 03/2027 Overall, Tony appears quite well. We did review that his recent weight loss will be quite beneficial to his overall general health, and particularly in regard to his underlying diabetes, fatty liver, and reflux. Hopefully this trend will continue for him. I did encourage him to continue a healthy diet and to avoid, or at least minimize alcohol intake. I did advise him to continue the current regimen of the ursodiol at 1.5 g daily for the underlying fatty liver. We did review his laboratory studies from just about a year ago which were quite encouraging and I shall repeat his laboratories along with a followup abdominal ultrasound. We did review the endoscopy findings from September of 2023 in regard to the healing of the previous esophagitis and esophageal ulcer. We did review the finding of his Tanner's esophagus and the need for a followup upper endoscopy in 2026 when he has his next screening colonoscopy. We did review the theoretical increased risk of esophageal cancer in patients with Tanner's esophagus. He'll continue his current regimen of the omeprazole 40 mg b.i.d. as it does seem that when he went down to a lower dose his esophagitis and esophageal ulcer proved refractory to healing. If things remain stable I will plan to see him in one year for a followup visit in regard to the underlying fatty liver. I did advise him to certainly call prior to that if he has any problems or questions I can be of assistance with. Tony was comfortable with this plan. Thank you again for allowing me to participate in Tony's care. I shall continue to keep you advised of his progress. 11/01/2024 History of adenomatous polyp of colon (ICD-10 - Z86.010) Overall, Tony appears quite well. We did review that his recent weight loss will be quite beneficial to his overall general health, and particularly in regard to his underlying diabetes, fatty liver, and reflux. Hopefully this trend will continue for him. I did encourage him to continue a healthy diet and to avoid, or at least minimize alcohol intake. I did advise him to continue the current regimen of the ursodiol at 1.5 g daily for the underlying fatty liver. We did review his laboratory studies from just about a year ago which were quite encouraging and I shall repeat his laboratories along with a followup abdominal ultrasound. We did review the endoscopy findings from September of 2023 in regard to the healing of the previous esophagitis and esophageal ulcer. We did review the finding of his Tanner's esophagus and the need for a followup upper endoscopy in 2026 when he has his next screening colonoscopy. We did review the theoretical increased risk of esophageal cancer in patients with Tanner's esophagus. He'll continue his current regimen of the omeprazole 40 mg b.i.d. as it does seem that when he went down to a lower dose his esophagitis and esophageal ulcer proved refractory to healing. If things remain stable I will plan to see him in one year for a followup visit in regard to the underlying fatty liver. I did advise him to certainly call prior to that if he has any problems or questions I can be of assistance with. Tony was comfortable with this plan. Thank you again for allowing me to participate in Tony's care. I shall continue to keep you advised of his progress. 11/01/2024 Liver fibrosis (ICD-10 - K74.00) Overall, Tony appears quite well. We did review that his recent weight loss will be quite beneficial to his overall general health, and particularly in regard to his underlying diabetes, fatty liver, and reflux. Hopefully this trend will continue for him. I did encourage him to continue a healthy diet and to avoid, or at least minimize alcohol intake. I did advise him to continue the current regimen of the ursodiol at 1.5 g daily for the underlying fatty liver. We did review his laboratory studies from just about a year ago which were quite encouraging and I shall repeat his laboratories along with a followup abdominal ultrasound. We did review the endoscopy findings from September of 2023 in regard to the healing of the previous esophagitis and esophageal ulcer. We did review the finding of his Tanner's esophagus and the need for a followup upper endoscopy in 2026 when he has his next screening colonoscopy. We did review the theoretical increased risk of esophageal cancer in patients with Tanner's esophagus. He'll continue his current regimen of the omeprazole 40 mg b.i.d. as it does seem that when he went down to a lower dose his esophagitis and esophageal ulcer proved refractory to healing. If things remain stable I will plan to see him in one year for a followup visit in regard to the underlying fatty liver. I did advise him to certainly call prior to that if he has any problems or questions I can be of assistance with. Tony was comfortable with this plan. Thank you again for allowing me to participate in Tony's care. I shall continue to keep you advised of his progress. 11/01/2024 Tanner''s esophagus without dysplasia (ICD-10 - K22.70) Overall, Tony appears quite well. We did review that his recent weight loss will be quite beneficial to his overall general health, and particularly in regard to his underlying diabetes, fatty liver, and reflux. Hopefully this trend will continue for him. I did encourage him to continue a healthy diet and to avoid, or at least minimize alcohol intake. I did advise him to continue the current regimen of the ursodiol at 1.5 g daily for the underlying fatty liver. We did review his laboratory studies from just about a year ago which were quite encouraging and I shall repeat his laboratories along with a followup abdominal ultrasound. We did review the endoscopy findings from September of 2023 in regard to the healing of the previous esophagitis and esophageal ulcer. We did review the finding of his Tanner's esophagus and the need for a followup upper endoscopy in 2026 when he has his next screening colonoscopy. We did review the theoretical increased risk of esophageal cancer in patients with Tanner's esophagus. He'll continue his current regimen of the omeprazole 40 mg b.i.d. as it does seem that when he went down to a lower dose his esophagitis and esophageal ulcer proved refractory to healing. If things remain stable I will plan to see him in one year for a followup visit in regard to the underlying fatty liver. I did advise him to certainly call prior to that if he has any problems or questions I can be of assistance with. Tony was comfortable with this plan. Thank you again for allowing me to participate in Tony's care. I shall continue to keep you advised of his progress. Plan Of Treatment Pending Test Test Name Order Date LIVER PROFILE 04/06/2023 LIVER PROFILE 11/01/2024 LIVER PROFILE 03/04/2016 LIVER PROFILE 05/07/2015 LIVER PROFILE 02/20/2022 LIVER PROFILE 10/06/2015 LIVER PROFILE 08/17/2023 IRON + IBC (FE) 03/06/2015 FERRITIN 03/06/2015 CBC w DIFF 08/17/2023 CBC w DIFF 04/06/2023 CBC w DIFF 11/01/2024 CBC w DIFF 02/20/2022 PROTHROMBIN TIME (PT, INR) 02/20/2022 [id number] (A1A) 03/06/2015 ALPHA-FETOPROTEIN,TUMOR MARKER 3 ALPHA-FETOPROTEIN,TUMOR MARKER 5 MITOCHONDRIAL AB 03/06/2015 SMOOTH MUSCLE ANTIBODIES 03/06/2015 FLUOR. ANTINUCLEAR AB SCREEN (AGNES) 02/22 US ABDOMEN COMP WITH ELASTOGRAPHY 2021 Prothrombin Time INR 04/06/2023 Prothrombin Time INR 08/17/2023 Prothrombin Time INR 11/01/2024 Alpha Fetoprotein 02/20/2022 Liver Fibrosis Pnl 11/01/2024 Liver Fibrosis Pnl 04/06/2023 Liver Fibrosis Pnl 08/17/2023 Liver Fibrosis Pnl 02/20/2022 US abdomen comp w elastography 3 US abdomen comp w elastography 5 Future Test Test Name Order Date COLONOSCOPY 02/20/2022 UPPER GI ENDOSCOPY BALLOOON DILATION OF ESOPH 04/06/2023 UPPER GI ENDOSCOPY BALLOOON DILATION OF ESOPH 04/27/2023 UPPER GI ENDOSCOPY 08/17/2023 Next Appt Details Provider Name:Ghassan Navarro , 10/31/2025 01:00:00 PM, [address], [address], [place], [address], Insurance Providers Payer Name Payer Address Payer Phone Subscriber Number Group Number Insured Name Patient Relationship to Insured Coverage Start Date Coverage End Date [facility] [address] [place], [place] [id number] [phone] [id number] TONY LOPEZ Self - patient is the insured Medical (General) History Medical History History ICD Code Hypertension Denies IN,CVA,Lung disease,renal disease Negative colonoscopies in 2004 and 2009- in [place] GERD--EGD-in 2008--his upper endoscopy revealed significant esophagitis, and a followup endoscopy in 2009 revealed healing and no Tanner's esophagus-these procedures were performed by Dr. Acosta in [place] [facility] in 2010 for a proximal small bowel obstruction with some inflammatory changes in the jejunum. This resolved without surgery. He underwent a small bowel enteroscopy at [facility] in 2010 with negative findings. He did [...] stopped this one or 2 years later Hyperlipidemia Colonoscopy in March of 2022 revealed [...] esophageal stricture and no dilation was performed. Followup upper endoscopy in September 2023 revealed the small hiatal hernia, and healing of the esophagitis and previous esophageal ulcer. Again noted was the Tanner's esophagus with all biopsies negative for dysplasia. Surgical History Surgery Date(Month/Year) Rotator cuff tear repair-right shoulder 02/19/2015 Deviated septum repair 2002 Umbilical hernia repair 1989 Right inguinal hernia repair as an infan t Left Rotator cuff surgery 12/17
--- NOTE | 2025-05-13 13:01 | PC.NURSE ---
Attempted to do po trial w/ pt after receiving water was unable to keep down. Pt states I dont feel the pressure, but I cant keep the water down Provider aware
[2025-05-13 13:09] VITALS: BP 142/80; PULSE 60
--- NOTE | 2025-05-13 14:10 | PM.GICN ---
History of Present Illness Data of Consult Service Date: 05/13/25 Primary Care Provider: Timothy Bey MD HPI Reason for consult: food bolus obstruction 74 year old m with history of HTN, HLD, GERD, and DM who I am seeing for food bolus obstruction. Patient states that on 05/11/2025 he had a large piece of steak and ever since then he has felt something stuck in his lower chest area. Patient states that when he has a drink of water he throws it back up but he ia able maintain air way and swallow secretions. He has had EGD in past with DR Navarro 2022 but no dilation, esophagitis has been noted with hiatal hernia and esophgeal ulcer. he usually is compliant with his omepraqzole 40 mg daily. He drinks socially, not taking drugs or nsaids. He has had issues on and off in the past with swallowing but not like this and usu resolved with drinking water. glucagon and nitrotab tried but no change in his sx Review of Systems Review of Systems: Constitutional : No Weight loss, No Fever, No Chills ENT/Mouth : No sore throat, No Rhinorrhea Eyes: No Swelling, No Redness Cardiovascular : No Chest Pain, No SOB, No Edema Respiratory : No Cough, No Sputum, No Wheezing Gastrointestinal : see HPI Genitourinary : NO Dysuria, No Urinary Frequency, No Hematuria, No Urgency Musculoskeletal : + joint pain, No Myalgias, No Joint Swelling Skin : No Skin Lesions, No rash Neuro : No Weakness, No Numbness, No Dizziness, No Headache Psych : No Anxiety/Panic, No Depression Heme/Lymph: No Bruising, No Lymphadenopathy Endocrine : No Polyuria, No Polydipsia All other systems reviewed and are negative. [facility] Past Medical History Medical History Sleep apnea with use of continuous positive airway pressure (CPAP) Diabetes Elevated cholesterol Fatty liver Small bowel obstruction GERD (gastroesophageal reflux disease) HTN (hypertension) Family History Pertinent family history: no Fh of esophageal cancer Surgical History Surgical History Hx of right inguinal hernia repair Hx of umbilical hernia repair Hx of nasal septoplasty Hx of repair of right rotator cuff History of esophagogastroduodenoscopy (EGD) H/O colonoscopy Social History Social History Household Members: Spouse Patient Tobacco Use Status: Never used Tobacco Smoked in Last 30 Days: No Advance Directives: Yes Advance Directives Information Provided: No Advance Directives on File: No Meds Allergies Allergy/AdvReac Type Severity Reaction Status Date / Time No Known Allergies Allergy Verified 05/13/25 11:42 Home Medications ?Medication ?Instructions ?Recorded ?Confirmed ?Last Taken ?Type atorvastatin 40 mg tablet (Lipitor) 1 tab PO DAILY 03/20/22 05/13/25 2 Days Ago History ~05/11/25 40 dapagliflozin propanediol 10 mg 1 tab PO DAILY 03/20/22 05/13/25 2 Days Ago History tablet (Farxiga) ~05/11/25 10 finasteride 5 mg tablet (Proscar) 1 tab PO DAILY 03/20/22 05/13/25 2 Days Ago History ~05/11/25 5 tamsulosin 0.4 mg capsule (Flomax) 1 cap PO DAILY 03/20/22 05/13/25 2 Days Ago History ~05/11/25 0.4 irbesartan 150 mg tablet (Avapro) 150 mg PO DAILY 04/19/23 05/13/25 2 Days Ago History ~05/11/25 150 omeprazole 20 mg capsule,delayed 20 mg PO DAILY 04/19/23 05/13/25 2 Days Ago History release ~05/11/25 20 ursodiol 500 mg tablet 1,000 mg PO BID 04/19/23 05/13/25 2 Days Ago History ~05/11/25 1000 Mounjaro 5 05/13/25 1 Week Ago History ~05/06/25 5 Physical Exam Exam: Exam: EXAM: GENERAL: The patient is well developed and nontoxic. VITAL SIGNS:see workflow HEENT: Nonicteric sclerae, PERRLA, EOMI. Oropharynx clear. Moist mucous membranes. Conjunctivae appear well perfused. No thyroid mass. CHEST: Chest wall is nontender. HEART: Regular rate and rhythm without murmurs. LUNGS: Clear to auscultation bilaterally. ABDOMEN: Soft, positive bowel sounds, nontender, no organomegaly.no flank tenderness SKIN: No rash, no excessive bruising, petechiae, or purpura. NEUROLOGIC: Cranial nerves II-XII intact without motor/sensory deficit. Psych: normal affect Vital Signs: Vital Signs: Last Vital Signs Temp 97.9 F 05/13/25 11:38 Pulse 60 05/13/25 13:09 Resp 16 05/13/25 11:38 BP 142/80 H 05/13/25 13:09 Pulse Ox 95 05/13/25 11:38 O2 Del Method Room Air 05/13/25 11:38 BMI result Body Mass Index 30.4 Assessment and Plan (1) Food impaction of esophagus: Status: Acute Plan 1/ Food impaction, might be schatzki ring or benign stricture vs esophageal spasm PLAN: 1/ EGD for further assessment 2/ consider changing PPI based on endo findings. Procedures Date of Service Date of Service: 05/13/25
[2025-05-13 14:17] VITALS: BP 138/82; PULSE 65; RESP 16; TEMP 36.6; O2SAT 97
--- NOTE | 2025-05-13 14:42 | HO.ANESPROP2 ---
[facility], [facility]–1983 Active Problems Active Problems: All Active Problems Food impaction of esophagus (Acute) Past Medical History Medical History Sleep apnea with use of continuous positive airway pressure (CPAP) Diabetes Elevated cholesterol Fatty liver Small bowel obstruction GERD (gastroesophageal reflux disease) HTN (hypertension) Family History Family history of problems with anesthesia: No Surgical History Surgical History Hx of right inguinal hernia repair Hx of umbilical hernia repair Hx of nasal septoplasty Hx of repair of right rotator cuff History of esophagogastroduodenoscopy (EGD) H/O colonoscopy History of Problems with Anesthesia: No Social History Social History Household Members: Spouse Patient Tobacco Use Status: Never used Tobacco Smoked in Last 30 Days: No Advance Directives: Yes Advance Directives Information Provided: No Advance Directives on File: No Meds Allergies Allergy/AdvReac Type Severity Reaction Status Date / Time No Known Allergies Allergy Verified 05/13/25 11:42 Home Medications ?Medication ?Instructions ?Recorded ?Confirmed ?Last Taken ?Type atorvastatin 40 mg tablet (Lipitor) 1 tab PO DAILY 03/20/22 05/13/25 2 Days Ago History ~05/11/25 40 dapagliflozin propanediol 10 mg 1 tab PO DAILY 03/20/22 05/13/25 2 Days Ago History tablet (Farxiga) ~05/11/25 10 finasteride 5 mg tablet (Proscar) 1 tab PO DAILY 03/20/22 05/13/25 2 Days Ago History ~05/11/25 5 tamsulosin 0.4 mg capsule (Flomax) 1 cap PO DAILY 03/20/22 05/13/25 2 Days Ago History ~05/11/25 0.4 irbesartan 150 mg tablet (Avapro) 150 mg PO DAILY 04/19/23 05/13/25 2 Days Ago History ~05/11/25 150 omeprazole 20 mg capsule,delayed 20 mg PO DAILY 04/19/23 05/13/25 2 Days Ago History release ~05/11/25 20 ursodiol 500 mg tablet 1,000 mg PO BID 04/19/23 05/13/25 2 Days Ago History ~05/11/25 1000 Mounjaro 5 05/13/25 1 Week Ago History ~05/06/25 5 Exam Height,Weight and Vital Signs: Height 5 ft 8 in Weight 90.718 kg Last Vital Signs Temp 97.8 F 05/13/25 14:17 Pulse 65 05/13/25 14:17 Resp 16 05/13/25 14:17 BP 138/82 05/13/25 14:17 Pulse Ox 97 05/13/25 14:17 O2 Del Method Room Air 05/13/25 14:17 Airway Mallampati Class: III TM Dist: >3cm Neck ROM: Full Lungs: RRR Assessment and Plan Final Anesthetic Review Family History of Problems with Anesthesia: No History of Problems with Anesthesia: No
--- NOTE | 2025-05-13 14:45 | HO.ANESPROP2 ---
[facility] Active Problems Active Problems: All Active Problems Food impaction of esophagus (Acute) Past Medical History Medical History Sleep apnea with use of continuous positive airway pressure (CPAP) Diabetes Elevated cholesterol Fatty liver Small bowel obstruction GERD (gastroesophageal reflux disease) HTN (hypertension) Functional capacity: independent ambulation Family History Family history of problems with anesthesia: No Surgical History Surgical History Hx of right inguinal hernia repair Hx of umbilical hernia repair Hx of nasal septoplasty Hx of repair of right rotator cuff History of esophagogastroduodenoscopy (EGD) H/O colonoscopy History of Problems with Anesthesia: No Social History Social History Household Members: Spouse Patient Tobacco Use Status: Never used Tobacco Smoked in Last 30 Days: No Advance Directives: Yes Advance Directives Information Provided: No Advance Directives on File: No Meds Allergies Allergy/AdvReac Type Severity Reaction Status Date / Time No Known Allergies Allergy Verified 05/13/25 11:42 Home Medications ?Medication ?Instructions ?Recorded ?Confirmed ?Last Taken ?Type atorvastatin 40 mg tablet (Lipitor) 1 tab PO DAILY 03/20/22 05/13/25 2 Days Ago History ~05/11/25 40 dapagliflozin propanediol 10 mg 1 tab PO DAILY 03/20/22 05/13/25 2 Days Ago History tablet (Farxiga) ~05/11/25 10 finasteride 5 mg tablet (Proscar) 1 tab PO DAILY 03/20/22 05/13/25 2 Days Ago History ~05/11/25 5 tamsulosin 0.4 mg capsule (Flomax) 1 cap PO DAILY 03/20/22 05/13/25 2 Days Ago History ~05/11/25 0.4 irbesartan 150 mg tablet (Avapro) 150 mg PO DAILY 04/19/23 05/13/25 2 Days Ago History ~05/11/25 150 omeprazole 20 mg capsule,delayed 20 mg PO DAILY 04/19/23 05/13/25 2 Days Ago History release ~05/11/25 20 ursodiol 500 mg tablet 1,000 mg PO BID 04/19/23 05/13/25 2 Days Ago History ~05/11/25 1000 Marlen 5 05/13/25 1 Week Ago History ~05/06/25 5 Exam Height,Weight and Vital Signs: Height 5 ft 8 in Weight 90.718 kg Last Vital Signs Temp 97.8 F 05/13/25 14:17 Pulse 65 05/13/25 14:17 Resp 16 05/13/25 14:17 BP 138/82 05/13/25 14:17 Pulse Ox 97 05/13/25 14:17 O2 Del Method Room Air 05/13/25 14:17 Airway Mallampati Class: III TM Dist: >3cm Neck ROM: Full Heart: RRR Lungs: CTA Assessment and Plan Assessment Anesthesia Assessment: Anesthesia Plan Discussed and Chart Reviewed Final Anesthetic Review Family History of Problems with Anesthesia: No History of Problems with Anesthesia: No NPO: No ASA Class: III and Emergency Final Preanesthetic Review: Meds/Allgs Chart Reviewed, Consent Obtained/Reviewed and Anes Risks/Benef Reviewed Patient Risk: Intermediate Procedure Risk: Low Anesthetic Plan Anesthetic Plan: GA Disposition: Standard PACU
--- NOTE | 2025-05-13 14:51 | PC.NURSE ---
Report to SENIOR QA ENGINEER. Pt updated on plan.
--- NOTE | 2025-05-13 15:35 | W.PM.OPN ---
Operative Note Operative Note Date of Service: 05/13/25 Narrative: Procedure Description: EGD Indication: food bolus obstruction Anesthesia: GA FLEXIBLE TRANSORAL UPPER GASTROINTESTINAL ENDOSCOPY UPPER ENDOSCOPY Consent: Indications for the procedure and potential complications of bleeding, perforation, reaction to medications and missed diagnosis were discussed with the patient and informed consent was obtained. Instrument: Olympus GIF H 190 J mid size upper endoscope Monitoring: Vital signs and clinical assessment, continuous EKG monitoring, Pulse oximetry, Carbon Dioxide monitoring and blood pressure monitoring were done throughout the procedure. Procedure: The patient was placed in the left lateral decubitis position and pre-procedure medications were administered and a bite block was placed. The endoscope was inserted into the mouth and advanced under direct vision to the third part of duodenum. A careful inspection was made as the upper endoscope was withdrawn including a retroflexed examination of the proximal stomach; Findings and interventions are described below. Findings: Larynx:normal Esophagus: GE junction at 35 cm, diaphragm hiatus at 38 cm, consistent with 3 cm hiatal hernia. moderate esophagitis noted with superificial ulceration. Schatzki ring noted. The food bolus was noted and was pushed down. A balloon was then used to dilate the lower and upper esophagus to 16.5 mm. superficial tears noted. biopsies taken to r/o EoE due to furrowed mucosa and tertiary contractions. Stomach: patchy erythema and fundic gland polyps . Biopsies were obtained. Grade 2 flap valve on retroflexed examination of the cardia. Duodenum: mild bulbar duodenitis Intervention: Biopsies as noted above, balloon dilation, removal of food bolus Impression/Findings: gastritis duodenitis esophagitis hiatal henria fundic gland polyps schatzki ring PLAN: soft diet today and advance diet as tolerated GERD precautions change to esomepazole 40 mg daily and stop omeprazole repeat EGD in 3-4 months to dilate further and make sure esophagus healed and no underlying barretts
[2025-05-13 15:51] VITALS: BP 136/73; PULSE 76; RESP 16; TEMP 37.1; O2SAT 95
[2025-05-13 16:01] VITALS: BP 138/79; PULSE 78; RESP 18; TEMP 37.1; O2SAT 96
== END 2025-05-13 13:51 | disposition home or self-care (01) ==
LOC: HO.ED 13:55 → HO.SSS 14:08
PROVIDERS: Emergency Provider Emergency Medicine; PCP Internal Medicine; Visit Provider Internal Medicine Gastroenterology
PROC: 0DJ08ZZ Inspection of Upper Intestinal Tract, Via Natural or Artificial Opening Endoscopic (ICD-10-PCS; CPT 43235; principal; 2025-05-13 15:00)
DX: K22.2 Esophageal obstruction (principal); T18.128A Food in esophagus causing other injury, initial encounter; W44.F3XA Food entering into or through a natural orifice, initial encounter; K29.80 Duodenitis without bleeding; K29.70 Gastritis, unspecified, without bleeding; K20.80 Other esophagitis without bleeding; K31.7 Polyp of stomach and duodenum; K44.9 Diaphragmatic hernia without obstruction or gangrene; Y93.89 Activity, other specified; Y92.9 Unspecified place or not applicable; Y99.9 Unspecified external cause status
CPT/HCPCS: 43249; 43239; 70360; 88305; 88313; 88342; 96374; 99284; 99291; C1726; J1100; J1610; J2003; J2250; J2405; J2704; J3010

== ENCOUNTER → 2025-05-13 11:46 | Outpatient (BNV) | payer BC, SELFPAY | PROVIDERS: Emergency Provider Emergency Medicine; PCP Internal Medicine; Visit Provider Radiology Diagnostic Radiology | DX: R13.10 Dysphagia, unspecified (principal) | CPT/HCPCS: 70360 ==

== ENCOUNTER → 2025-05-13 13:51 | Outpatient (BNV) | payer BC, SELFPAY | PROVIDERS: Emergency Provider Emergency Medicine; PCP Internal Medicine; Visit Provider Internal Medicine Gastroenterology | DX: T18.128A Food in esophagus causing other injury, initial encounter (principal); W44.F3XA Food entering into or through a natural orifice, initial encounter; K22.2 Esophageal obstruction | CPT/HCPCS: 43247; 43249; 99284 ==